=== PATIENT | male | born 1950 | race Caucasian/White ===

== ENCOUNTER → 2016-04-13 | Outpatient (CLI) | payer OTHER ==
[2016-04-13 08:44] LABS: Basophils # (A) 0.1 k/uL (0-0.2); Basophils % (A) 1 %; CH 31.1; CHCM 33.9; Eosinophils # (A) 0.3 k/uL (0-0.7); Eosinophils % (A) 5 %; HDW 2.57; HGB 15.6 gm/dL (13.0-17.5); Luc % (Auto) 3; Lymphocytes # (A) 1.2 k/uL (1.0-4.8); Lymphocytes % (A) 21 %; MCH 29.9 pg (25.0-35.0); MCHC 32.4 g/dL (31.0-37.0); MCV 92.3 fL (80.0-100.0); Mean Platelet Volume 6.8; Monocytes # (A) 0.4 k/uL (0-1.0); Monocytes % (A) 7 %; Neutrophils # (A) 3.6 k/uL (1.3-7.7); Neutrophils % (A) 63 %; RDW 13.1 % (11.5-15.5); WBC 5.8 k/uL (3.8-10.6)
[2016-04-13 08:45] LABS: Appearance,Urine Clear (Clear); Bilirubin,Urine Negative (Negative); Glucose,Urine (UA) Negative (Negative); Ketones,Urine Negative (Negative); Leukocyte Esterase,Urine Negative (Negative); Nitrite,Urine Negative (Negative); PH, Urine 5.5 (5.0-8.0); Protein,Urine Negative (Negative); Specific Gravity,Urine 1.009 (1.001-1.035); UA Billing (MACRO vs. MICRO) CHEM; Urobilinogen,Urine <2.0 mg/dL (<2.0)
[2016-04-13 10:45] LABS: ALT 54 U/L (21-72); AST 37 U/L (17-59); Blood Urea Nitrogen 19 mg/dL (9-20); Cholesterol 168 mg/dL (<200); Glucose 101 mg/dL (74-99); HDL Cholesterol 45 mg/dL (40-60); Non-African American GFR(MDRD) >60 (>60 ml/min/1.73 sqM); Potassium 4.7 mmol/L (3.5-5.1); Sodium 144 mmol/L (137-145); Triglycerides 109 mg/dL (<150)
[2016-04-13 11:32] LABS: Hemoglobin A1C 5.4 % (4.2-6.1)
== END | disposition home or self-care (01) ==
LOC: LABWHC1 08:13
PROVIDERS: ATTEND Internal Medicine
DX: M48.06 Spinal stenosis, lumbar region (principal); G62.9 Polyneuropathy, unspecified; I10 Essential (primary) hypertension; R60.9 Edema, unspecified
CPT/HCPCS: 36415; 80061; 81003; 82565; 82947; 83036; 84132; 84295; 84403; 84443; 84450; 84460; 84520; 85025

== ENCOUNTER 2016-06-26 17:50 | Emergency (ER) | payer OTHER, MEDICARE ==
[2016-06-26] MEDS ORDERED: SODIUM CHLORIDE 0.9% 1,000 ML IV STA (18:29)
[2016-06-26] MEDS ORDERED: chlordiazePOXIDE 25 MG CAP PO STA (18:29)
[2016-06-26] MEDS ORDERED: ONDANSETRON 4 MG ODT STARTER PACK 2 TAB BTL PO STA (18:30)
--- NOTE | 2016-06-26 18:33 | ED ---
Alcohol HPI - General Chief Complaint: Alcohol Stated Complaint: ALCOHOL WITHDRAWALS Time Seen by Provider: 06/26/16 18:02 Source: patient, RN notes reviewed Mode of arrival: ambulatory Limitations: no limitations - History of Present Illness Initial Comments: Patient is a 66-year-old male chief complaint of alcohol withdrawal, patient reports that he drinks a liter and half of wine every day. Patient reports he has been 2 to rehab facilities this past year but now he has relapsed. He states that over the past few weeks he has increased his alcohol intake. Patient states that he has nausea. He reports that he is unable to eat. Patient reports that he has no tremors. He denies any other issues. Patient reports that he drove himself here. Patient's PAT was 0.138. Patient states that he is having no plans to go to a rehab facility after this. Patient reports he try to detox himself. Patient denies any other physical symptoms including chest pain, abdominal pain or other symptoms. - Related Data Home Medications Medication Instructions Recorded Confirmed Losartan Potassium 100 mg PO DAILY 09/25/14 06/26/16 Ascorbic Acid [Vitamin C] 500 mg PO DAILY 06/26/16 06/26/16 Furosemide [Lasix] 20 mg PO DAILY 06/26/16 06/26/16 Gabapentin [Neurontin] 300 mg PO TID 06/26/16 06/26/16 Multivit-Min/FA/Lycopen/Lutein 1 tab PO DAILY 06/26/16 06/26/16 [Centrum Silver Men Tablet] NIFEdipine [NIFEdipine ER] 30 mg PO DAILY 06/26/16 06/26/16 Previous Rx's Medication Instructions Recorded LORazepam [Ativan] 1 mg PO TID #9 tab 06/26/16 Ondansetron Odt [Zofran Odt] 4 mg PO Q8HR PRN #12 tab 06/26/16 Allergies Allergy/AdvReac Type Severity Reaction Status Date / Time acetaminophen [From Vicodin] Allergy Rash/Hives Verified 06/26/16 18:09 clindamycin Allergy Rash/Hives Verified 06/26/16 18:09 hydrocodone bitartrate Allergy Rash/Hives Verified 06/26/16 18:09 [From Vicodin] Penicillins Allergy Rash/Hives Verified 06/26/16 18:09 Sulfa (Sulfonamide Allergy Rash/Hives Verified 06/26/16 18:09 Antibiotics) Review of Systems ROS Statement: Those systems with pertinent positive or pertinent negative responses have been documented in the HPI. ROS Other: All systems not noted in ROS Statement are negative. Past Medical History Past Medical History: Hypertension Additional Past Medical History / Comment(s): HYPOGLYCEMIA History of Any Multi-Drug Resistant Organisms: None Reported Past Surgical History: Orthopedic Surgery Additional Past Surgical History / Comment(s): RIGHT TORN ACL, HYDROCELE Past Psychological History: Depression Smoking Status: Never smoker Past Alcohol Use History: Abuse, Daily, Heavy Past Drug Use History: None Reported General Exam - General Exam Comments Initial Comments: is a 66-year-old male. No distress. Limitations: no limitations General appearance: alert, in no apparent distress Head exam: Present: atraumatic, normocephalic, normal inspection Eye exam: Present: normal appearance, PERRL, EOMI. Absent: scleral icterus, conjunctival injection, periorbital swelling ENT exam: Present: normal exam, mucous membranes moist Neck exam: Present: normal inspection. Absent: tenderness, meningismus, lymphadenopathy Respiratory exam: Present: normal lung sounds bilaterally. Absent: respiratory distress, wheezes, rales, rhonchi, stridor Cardiovascular Exam: Present: regular rate, normal rhythm, normal heart sounds. Absent: systolic murmur, diastolic murmur, rubs, gallop, clicks GI/Abdominal exam: Present: soft, normal bowel sounds. Absent: distended, tenderness, guarding, rebound, rigid Extremities exam: Present: normal inspection, full ROM, normal capillary refill. Absent: tenderness, pedal edema, joint swelling, calf tenderness Back exam: Present: normal inspection Neurological exam: Present: alert, oriented X3, CN II-XII intact Psychiatric exam: Present: normal affect, normal mood Skin exam: Present: warm, dry, intact, normal color. Absent: rash Course Vital Signs 06/26/16 17:53 Temperature 98.3 F Pulse Rate 89 Respiratory 20 Rate Blood Pressure 127/58 O2 Sat by Pulse 98 Oximetry Medical Decision Making - Medical Decision Making Patient 66-year-old male with chief complaint of concerns of going through alcohol withdrawals. Patient was given IV fluids, Zofran and Librium. Patient discharged at this time prescription for Ativan and Zofran. Discussed he needs to take this sobriety seriously. Patient plans to start impression he is considering going to treatment center. Patient agrees treatment plan will comply. Return parameters were discussed. Disposition Clinical Impression: Alcohol dependence with withdrawal, uncomplicated Disposition: HOME SELF-CARE Condition: Good Instructions: Alcohol Withdrawal (ED) Additional Instructions: Patient advised to abstain from alcohol use. Patient is to follow-up with primary care provider. Recommended following up with a drug rehab facility. Return emergency department if any alarming signs or symptoms occur. Prescriptions: LORazepam [Ativan] 1 mg PO TID #9 tab Ondansetron Odt [Zofran Odt] 4 mg PO Q8HR PRN #12 tab PRN Reason: Nausea Referrals: Benjie Harris MD [Primary Care Provider] - 1-2 days Time of Disposition: 19:46
[2016-06-26 20:27] VITALS: RESP 18
[2016-06-26 21:25] VITALS: BP 147/80; PULSE 87; TEMP 97.8
== END 2016-06-26 21:26 | disposition home or self-care (01) ==
LOC: EC 17:50
DX: F10.239 Alcohol dependence with withdrawal, unspecified (principal); Y90.6 Blood alcohol level of 120-199 mg/100 ml; I10 Essential (primary) hypertension; Z79.899 Other long term (current) drug therapy; Z88.6 Allergy status to analgesic agent; Z88.1 Allergy status to other antibiotic agents; Z88.5 Allergy status to narcotic agent; Z88.0 Allergy status to penicillin; Z88.2 Allergy status to sulfonamides
CPT/HCPCS: 82075; 96360; 96361; 99284; S0119

== ENCOUNTER → 2016-07-01 | Outpatient (CLI) | payer MEDICARE, OTHER ==
--- NOTE | 2016-07-01 10:45 | MR ---
EXAMINATION TYPE: MR knee RT wo con DATE OF EXAM: 07/01/2016 9:09 AM COMPARISON: NONE HISTORY: 66-year-old male with right knee pain TECHNIQUE: Multiplanar, multisequence imaging of the right knee is performed without IV contrast. FINDINGS: There appears to have been prior ACL reconstruction. However, the ACL graft is not visualized and blayne ears ruptured. There is some intrinsic signal within the PCL suggesting mild sprain or partial tear. MCL and LCL complex appear intact. There is severe full-thickness loss of cartilage along the mid weightbearing and peripheral medial co mpartment with marginal spurring and reactive subchondral marrow signal changes. The medial meniscus is diffusely degenerative, torn, and extruded. There is additional moderate to severe joint space narrowing within the lateral compartment with mode rate to severe irregular cartilage thinning along the mid aspect of the lateral compartment with chiquita inal spurring and reactive subchondral marrow signal changes. The lateral meniscus is also diffusely degenerative and torn. Moderate degenerative thinning of patellar articular cartilage with marginal spurring. There are more areas of severe cartilage loss along the lateral trochlear facet. Extensor mechanism is intact. There is a large knee joint effusion with moderate synovial thickening. There is also a moderate to large 6.8 cm complex Hay cyst which is leaking or ruptured. Mild diffuse muscular edema involving the lateral gastrocnemius and popliteus. There is normal popliteal artery anatomy with moderate diffuse muscular atrophy. No suspicious bone m arrow replacement. No discrete marginal erosions. Extensive patchy subchondral and pericapsular bone marrow edema is noted. IMPRESSION: 1. Prior ACL reconstruction with graft rupture. Also, either mild strain or partial tear of the PCL. 2. End stage medial compartment degenerative change with a diffusely degenerated, torn, and extruded medial meniscus. 3. Moderate to severe lateral compartment degenerative change also with diffuse tear of the lateral m eniscus. 4. Moderate overall patellofemoral compartmental osteoarthrosis. 5. Given extensive patchy subchondral and pericapsular bone marrow edema, correlate to exclude an inf lammatory arthropathy superimposed on osteoarthritis. 6. Large knee joint effusion with moderate chronic synovitis as well as a moderate to large complex l eaking/ruptured Hay's cyst. Consider the utility of arthrocentesis and fluid analysis. 7. Muscular edema involving the lateral gastrocnemius and popliteus could represent muscle strains or could be reactive to altered biomechanics.
--- NOTE | 2016-07-01 11:26 | MR ---
EXAMINATION TYPE: MR lumbar spine wo con DATE OF EXAM: 07/01/2016 9:19 AM COMPARISON: NONE HISTORY: lumbar stenosis TECHNIQUE: Multiplanar, multisequence images of the lumbar spine were acquired. L1-L2: Circumferential posterior disc bulge causes mild anterior mass effect on the thecal sac. There is mild foraminal encroachment on the left likely contributed by scoliosis. Mild facet arthropathy. L2-L3: Posterior broad-based disc bulge causes mild anterior mass effect on the thecal sac. Central d isc bulge causes only minimal foraminal encroachment greater on the right than on the left. L3-L4: Circumferential extension of broad-based posterior disc bulge causes anterior mass effect on t he thecal sac. Some encroachment on the lateral recess due to facet arthropathy and hypertrophy of li gamentum flavum. Right-sided foraminal encroachment is present greater than left. There is mild to mo derate central stenosis. L4-L5: Facet arthropathy with hypertrophy of the ligamentum flavum encroaches on the lateral recesses . Differential extension of endplate disc complex results in bilateral foraminal encroachment. Mild a nterior mass effect on the thecal sac due to posterior extension of endplate disc complex, broad-base d posterior disc bulge. No significant central stenosis. L5-S1: There is facet arthropathy. No significant central canal stenosis. Circumferential extension o f endplate disc complex encroaches somewhat on the left neural foramen. Lumbar segments are intact. No paraspinal masses are identified. Conus medullaris has a normal appe arance. Minimal retrolisthesis grade 1 L2-3, L3-4. Multilevel endplate discogenic marrow signal michael e, there is associated loss of disc height and signal at the intervertebral levels, multilevel vacuum disc phenomenon. There is a spinal curvature. IMPRESSION: Degenerative disc disease, facet arthropathy, multilevel foraminal encroachment, mild to moderate jono tral stenosis greatest at L3-4, correlate with plain film prior to any intervention.
== END | disposition home or self-care (01) ==
LOC: RADMRIMAIN 08:17
PROVIDERS: ATTEND Physical Medicine & Rehabilitation
DX: M17.11 Unilateral primary osteoarthritis, right knee (principal); M48.06 Spinal stenosis, lumbar region; M51.36 Other intervertebral disc degeneration, lumbar region; M46.96 Unspecified inflammatory spondylopathy, lumbar region
CPT/HCPCS: 72148

== ENCOUNTER 2016-08-02 20:20 | Inpatient (IN) | payer MEDICARE, OTHER ==
[~2016-08-02 20:20] MED LIST: THIAMINE 100 MG TAB PO SCH
[2016-08-02] MEDS ORDERED: SODIUM CHLORIDE 0.9% 1,000 ML with MVI, ADULT NO.4 WITH VIT K 10 ML, THIAMINE 100 MG, F... IV ONE ×8 (20:44→21:30)
[2016-08-02] MEDS ORDERED: THIAMINE 100 MG/ML 2 ML VIAL IM STA (20:45)
[2016-08-02] MEDS ORDERED: LORazepam 2 MG/ML SYRINGE IV PRN ×2 (20:45)
--- NOTE | 2016-08-02 20:51 | ED ---
General Adult HPI - General Chief complaint: Alcohol Stated complaint: Withdrawal Time Seen by Provider: 08/02/16 20:40 Source: patient, RN notes reviewed, old records reviewed Mode of arrival: wheelchair Limitations: no limitations - History of Present Illness Initial comments: Chief complaint and history of present illness a 66-year-old male here with a complaint of started have withdrawal. The patient reports he drinks 1/2 L of wine daily. He drank just enough today so he will not feel bad. The patient was in emergency room problems approximately one month ago. He's been through rehabilitation for alcohol problems twice in the past. She denies depression or suicidal thoughts. - Related Data Home Medications Medication Instructions Recorded Confirmed Losartan Potassium 100 mg PO DAILY 09/25/14 08/02/16 Furosemide [Lasix] 20 mg PO DAILY 06/26/16 08/02/16 Gabapentin [Neurontin] 300 mg PO TID 06/26/16 08/02/16 Multivit-Min/FA/Lycopen/Lutein 1 tab PO DAILY 06/26/16 08/02/16 [Centrum Silver Men Tablet] Aspirin 1,300 mg PO DAILY 08/02/16 08/02/16 Ibuprofen [Motrin] 800 mg PO DAILY PRN 08/02/16 08/02/16 Triamcinolone Acetonide [Nasacort] 2 spray EA NOSTRIL DAILY 08/02/16 08/02/16 Allergies Allergy/AdvReac Type Severity Reaction Status Date / Time acetaminophen [From Vicodin] Allergy Rash/Hives Verified 08/02/16 21:08 clindamycin Allergy Rash/Hives Verified 08/02/16 21:08 hydrocodone bitartrate Allergy Rash/Hives Verified 08/02/16 21:08 [From Vicodin] Penicillins Allergy Rash/Hives Verified 08/02/16 21:08 Sulfa (Sulfonamide Allergy Rash/Hives Verified 08/02/16 21:08 Antibiotics) Review of Systems ROS Statement: Those systems with pertinent positive or pertinent negative responses have been documented in the HPI. Review of systems denies any headache or visual acuity changes. No chest pain or shortness of breath. No GI/ problems this time and no neuro complaints or deficits. He reports he was slowing is drinking now started to have withdrawal symptoms and wants to get off alcohol. All systems reviewed. Past medical problems significant for hypertension and hypoglycemia and chronic alcoholism. The patient's surgeries include torn right ACL. No other surgeries. Family history no 1 with addictions. Mother had breast cancer father had a stroke. Patient has ALLERGIES to acetaminophen, clindamycin, hydrocodone, penicillins and sulfa. Patient does not smoke. He is not alcoholic. Patient states she's gainfully employed but misses a lot of work. ROS Other: All systems not noted in ROS Statement are negative. Past Medical History Past Medical History: Hypertension Additional Past Medical History / Comment(s): HYPOGLYCEMIA History of Any Multi-Drug Resistant Organisms: None Reported Past Surgical History: Orthopedic Surgery Additional Past Surgical History / Comment(s): RIGHT TORN ACL, HYDROCELE Past Psychological History: Depression Smoking Status: Never smoker Past Alcohol Use History: Abuse, Daily, Heavy Past Drug Use History: None Reported General Exam - General Exam Comments Initial Comments: General: The patient is awake and alert, states he started having alcohol withdrawal problems. Vital signs this time temperature 98.3 pulse 96 respiratory rate 16 pulse ox 95% room air blood pressure 144/69 Eye: Pupils are equal, round and reactive to light, extra-ocular movements are intact ; there is normal conjunctiva bilaterally. No signs of icterus. Ears, nose, mouth and throat: There are moist mucous membranes and no oral lesions. Neck: The neck is supple, there is no tenderness . Patient denies any slips or falls no injuries. No headache no head injuries. Cardiovascular: There is a regular rate and rhythm. No murmur, rub or gallop is appreciated. Respiratory: Lungs are clear to auscultation, respirations are non-labored, breath sounds are equal. No wheezes, stridor, rales, or rhonchi. Gastrointestinal: Soft, non-distended, non-tender abdomen without masses or organomegaly noted. There is no rebound or guarding present. No CVA tenderness. Bowel sounds are unremarkable. Back: There is no tenderness to palpation in the midline. There is no obvious deformity. No rashes noted. Musculoskeletal: Normal ROM, no tenderness, There is no pedal edema. There is no calf tenderness or swelling. Sensation intact. Small bruise on his left knee. But demonstrates full range of motion. Neurological: CN II-XII intact, There are no obvious motor or sensory deficits. Coordination appears grossly intact. Speech is normal. No focal or lateralizing findings. Skin: Skin is warm and dry and no rashes or lesions are noted. Psychiatric: Denies being depressed or suicidal. History of alcoholism. Limitations: no limitations Course Vital Signs 08/02/16 20:22 Temperature 98.3 F Pulse Rate 96 Respiratory 16 Rate Blood Pressure 144/69 O2 Sat by Pulse 95 Oximetry Medical Decision Making - Medical Decision Making Medical decision making the patient's white count 5.5 hemoglobin 15 and 46 platelets 243. INR 1.0 BUN 24 creatinine 1.0 with a GFR greater than 60. Glucose 98. Amylase, lipase normal limits. AST ALT elevated. [facility] for [facility] Withdrawal. Continuing with a Banana Bag and Thiamine. He Is Neurologically Intact. - Lab Data Result diagrams: 08/02/16 21:00 08/02/16 21:00 Lab Results 08/02/16 08/02/16 08/02/16 Range/Units 21:00 21:00 21:00 WBC 5.5 (3.8-10.6) k/uL RBC 5.00 (4.30-5.90) m/uL Hgb 15.9 (13.0-17.5) gm/dL Hct 46.9 (39.0-53.0) % MCV 93.8 (80.0-100.0) fL MCH 31.7 (25.0-35.0) pg MCHC 33.8 (31.0-37.0) g/dL RDW 14.0 (11.5-15.5) % Plt Count 243 (150-450) k/uL Neutrophils % 64 % Lymphocytes % 25 % Monocytes % 7 % Eosinophils % 1 % Basophils % 1 % Neutrophils # 3.5 (1.3-7.7) k/uL Lymphocytes # 1.4 (1.0-4.8) k/uL Monocytes # 0.4 (0-1.0) k/uL Eosinophils # 0.0 (0-0.7) k/uL Basophils # 0.0 (0-0.2) k/uL PT 10.3 (9.0-12.0) sec INR 1.0 (<1.1) Sodium 140 (137-145) mmol/L Potassium 4.1 (3.5-5.1) mmol/L Chloride 97 L (98-107) mmol/L Carbon Dioxide 20 L (22-30) mmol/L Anion Gap 23 mmol/L BUN 24 H (9-20) mg/dL Creatinine 1.00 (0.66-1.25) mg/dL Est GFR (MDRD) Af Amer >60 (>60 ml/min/1.73 sqM) Est GFR (MDRD) Non-Af >60 (>60 ml/min/1.73 sqM) Glucose 98 (74-99) mg/dL Calcium 8.9 (8.4-10.2) mg/dL Magnesium 2.4 H (1.6-2.3) mg/dL Total Bilirubin 0.6 (0.2-1.3) mg/dL AST 91 H (17-59) U/L ALT 78 H (21-72) U/L Alkaline Phosphatase 88 (38-126) U/L Total Protein 6.8 (6.3-8.2) g/dL Albumin 4.5 (3.5-5.0) g/dL Amylase 40 (30-110) U/L Lipase 192 (23-300) U/L Disposition Clinical Impression: Alcohol withdrawal Disposition: ADMITTED IP TO THIS HOSP Condition: Fair Referrals: Benjie Harris MD [Primary Care Provider] - 1-2 days
[2016-08-02 21:16] LABS: Basophils % (A) 1 %; CH 32.1; CHCM 34.4; Eosinophils % (A) 1 %; HCT 46.9 % (39.0-53.0); HDW 2.27; HGB 15.9 gm/dL (13.0-17.5); Luc # (Auto) 0.17; Luc % (Auto) 3; Lymphocytes # (A) 1.4 k/uL (1.0-4.8); Lymphocytes % (A) 25 %; MCH 31.7 pg (25.0-35.0); MCHC 33.8 g/dL (31.0-37.0); MCV 93.8 fL (80.0-100.0); Mean Platelet Volume 7.2; Monocytes # (A) 0.4 k/uL (0-1.0); Monocytes % (A) 7 %; Neutrophils # (A) 3.5 k/uL (1.3-7.7); Neutrophils % (A) 64 %; WBC 5.5 k/uL (3.8-10.6); WBC (Perox) 5.56
[2016-08-02 21:27] LABS: ALT 78 U/L (21-72); AST 91 U/L (17-59); Alkaline Phosphatase 88 U/L (38-126); Amylase 40 U/L (30-110); Anion Gap 23 mmol/L; Blood Urea Nitrogen 24 mg/dL (9-20); Calcium 8.9 mg/dL (8.4-10.2); Carbon Dioxide 20 mmol/L (22-30); Chloride 97 mmol/L (98-107); Glucose 98 mg/dL (74-99); Magnesium 2.4 mg/dL (1.6-2.3); Non-African American GFR(MDRD) >60 (>60 ml/min/1.73 sqM); Potassium 4.1 mmol/L (3.5-5.1); Sodium 140 mmol/L (137-145); Total Bilirubin 0.6 mg/dL (0.2-1.3); Total Protein 6.8 g/dL (6.3-8.2)
[2016-08-02] MEDS ORDERED: LORazepam 2 MG/ML SYRINGE IV STA (21:31)
[2016-08-02 21:32] LABS: Prothrombin Time 10.3 sec (9.0-12.0)
[2016-08-02] MEDS ORDERED: NALOXONE 0.4 MG/ML 1 ML VIAL IV PRN (22:39)
[2016-08-02] MEDS ORDERED: IBUPROFEN 200 MG TAB PO PRN (22:41)
[2016-08-03] MEDS: LORazepam 2 MG/ML SYRINGE IV PRN ×3 (03:21→10:51)
[2016-08-03 07:47] LABS: ALT 86 U/L (21-72); AST 97 U/L (17-59); Alkaline Phosphatase 83 U/L (38-126); Anion Gap 15 mmol/L; Blood Urea Nitrogen 17 mg/dL (9-20); Calcium 8.3 mg/dL (8.4-10.2); Carbon Dioxide 24 mmol/L (22-30); Chloride 98 mmol/L (98-107); Glucose 60 mg/dL (74-99); Non-African American GFR(MDRD) >60 (>60 ml/min/1.73 sqM); Potassium 3.8 mmol/L (3.5-5.1); Sodium 137 mmol/L (137-145); Total Bilirubin 1.1 mg/dL (0.2-1.3); Total Protein 6.6 g/dL (6.3-8.2)
[2016-08-03] MEDS ORDERED: GABAPENTIN 300 MG CAP PO SCH (09:00)
[2016-08-03] MEDS ORDERED: FUROSEMIDE 20 MG TAB PO SCH (09:00)
[2016-08-03] MEDS ORDERED: FLUTICASONE 50MCG/SPRAY NASAL 16GM EA NOSTRIL SCH (09:00)
[2016-08-03] MEDS ORDERED: ASPIRIN 325 MG TAB PO SCH (09:00)
[2016-08-03] MEDS ORDERED: LOSARTAN 50 MG TAB PO SCH (09:00)
[2016-08-03] MEDS ORDERED: PANTOPRAZOLE 40 MG/10 ML VIAL IV SCH (09:00)
[2016-08-03 11:23] VITALS: BMI 33.0
[2016-08-03 12:57] VITALS: BP 143/83; PULSE 97; RESP 16; TEMP 97.9
--- NOTE | 2016-08-04 05:41 | HP ---
DATE OF ADMISSION: HISTORY AND PHYSICAL AND DISCHARGE SUMMARY Reason for admission is palpitations and anxiety. HISTORY OF PRESENTING ILLNESS: This is a 66-year-old gentleman who has had history of alcohol withdrawals in the past comes in the hospital with complaints of palpitations, nausea and generalized anxiety. The patient states that he has been drinking about 0.5 L of wine and sometimes a pint of vodka in addition to it. He states that he has attempted to quit drinking; however, has symptoms of anxiety. Hence, restarts drinking immediately. The patient's past medical history includes hypertension, peripheral neuropathy. States that he does not have any history of heart disease. EKG in the emergency room did not reveal ST-T wave changes. At the time of my evaluation, patient appears to be appropriate. He is able to ambulate without difficulty. Denies having any anxiety. No nausea, vomiting. No auditory or visual hallucinations are reported. A 14-point review of systems was done; none pertinent other than those mentioned above. Medications at home include: 1. Losartan. 2. Lasix. 3. Neurontin. 4. Centrum Silver. 5. Aspirin. 6. Motrin. 7. Nasacort. Medications were reviewed appropriately on admission and on discharge. Allergies include VICODIN, CLINDAMYCIN, PENICILLINS and SULFA. Past medical history includes hypertension, depression, alcohol use none. Past surgical history includes repair of his knee, hydrocele surgery. SOCIAL HISTORY: Drinks daily. No significant tobacco use is reported. No drug use is reported. PHYSICAL EXAM: Vitals were reviewed within normal limits. GENERALLY: Patient appears to be alert, oriented x3. HEENT: The pupils are equal and reactive to light and accommodation. HEART: S1, S2 present. No murmur appreciated. LUNGS: Good air entry. No wheezing or rhonchi noted. ABDOMINAL EXAM: Soft, nontender, no organomegaly appreciated. GENITOURINARY: No Jarrett in place. EXTREMITIES: Pulses can be palpated distally. Denies any tenderness on gross palpation. SKIN: On a gross skin exam does not appear to have any purpura or any skin rashes that were noted. NEUROLOGICALLY: Grossly cranial nerves 2-12 intact. No motor or sensory deficits noted. LABORATORY DATA: On initial admission was hemoglobin 15.9, hematocrit 46.9, white count 5.5, platelets of 243. Sodium 140, potassium 4.1, chloride 97, bicarb 20. BUN 24, creatinine of 1. ASSESSMENT AND PLAN: 1. Acute alcohol withdrawal, however, improved rapidly. 2. Non-anion gap metabolic acidosis, which is mild. 3. History of hypertension. 4. Peripheral neuropathy. PLAN: I did discuss with the patient that he appears stable. The only change in discharge medications were patient will be given Serax. I did discuss titration over the next 3 to 4 days. Patient will be given community resources including social work on an outpatient basis and AA as well. Patient will also be given a prescription for thiamine for 7 days. Discuss complete alcohol cessation. Patient states that he is anxious regarding a knee surgery and hence restarted drinking again. Patient was made to ambulate, was stable and discharged home in a stable condition.
== END 2016-08-03 15:58 | disposition home or self-care (01) | DRG 897 ==
LOC: EC 20:20 → 6SEL 22:39
PROVIDERS: ADMIT Internal Medicine; ATTEND Internal Medicine
DX: F10.239 Alcohol dependence with withdrawal, unspecified (principal); E87.2 Acidosis; F32.9 Major depressive disorder, single episode, unspecified; I10 Essential (primary) hypertension; G62.9 Polyneuropathy, unspecified; F41.1 Generalized anxiety disorder; Z88.0 Allergy status to penicillin; Z88.1 Allergy status to other antibiotic agents; Z88.5 Allergy status to narcotic agent; Z88.2 Allergy status to sulfonamides; Z79.82 Long term (current) use of aspirin; Z79.899 Other long term (current) drug therapy
CPT/HCPCS: 36415; 80053; 82150; 83690; 83735; 85025; 85610; 96365; 96366; 96375; 99285

== ENCOUNTER 2016-08-20 07:36 | Day surgery (SDC) | payer MEDICARE, OTHER ==
[2016-08-18 16:23] VITALS: BMI 35.2
--- NOTE | 2016-08-19 20:21 | HP ---
DATE OF ADMISSION: Matias Cha is a 66-year-old patient seen with progressive right knee pain. After having treatment options discussed, he elected to proceed with right knee arthroscopy. Consent regarding the procedure was obtained. Medical clearance was provided by Dr. Harris. Past medical history is hypertension, hyperlipidemia. PAST SURGICAL HISTORY: Right knee arthroscopy. Daily medications: 1. Gabapentin. 2. Ibuprofen. 3. Losartan. ALLERGIES: SULFA, VICODIN AND PENICILLIN. SOCIAL HISTORY: Patient denies current tobacco use. Physical evaluation of the right knee: His range of motion is 0 to 110 degrees, moderate effusion. Tenderness medial joint line. Tenderness, lateral joint line. Positive medial Anette's. Positive lateral Anette's. Ligaments stable. Hip rotation without pain. Distal neurovascular exam intact. Radiographs of the right knee revealed moderate medial, moderate to severe lateral, moderate patellofemoral compartment osteoarthritis. IMPRESSION: 1. Internal derangement of right knee with medial meniscal tear and ACL graft tear. 2. Right knee osteoarthritis. PLAN: Right knee arthroscopy with partial meniscectomy and debridement.
[~2016-08-20 07:36] MED LIST changes: +DEXAMETHASONE SOD PHOSPHATE 10 MG/ML 1 ML VIAL IV ONE; +HYDROmorphone 1 MG/ML 1 ML SYRINGE IVP PRN; +LACTATED RINGERS 1,000 ML IV SCH; +ONDANSETRON 4 MG/2 ML VIAL IVP ONE; -THIAMINE 100 MG TAB PO SCH; +ceFAZolin 2 GM in SODIUM CHLORIDE 0.9% 100 ML IVPB ONE
[2016-08-20] MEDS ORDERED: LIDOCAINE 1% 20 ML VIAL (10MG/ML) FOR IV START INTRADERMA ONE (08:03)
[2016-08-20 08:04] LABS: Glucose,Whole Blood 97 mg/dL (75-99)
[2016-08-20] MEDS ORDERED: SUCCINYLCHOLINE CHLORIDE 100 MG/5 ML SYR IV ONE (08:42)
[2016-08-20] MEDS ORDERED: fentaNYL (PF) 50 MCG/ML 2 ML AMP ONE (08:42)
[2016-08-20] MEDS ORDERED: PROPOFOL 10 MG/ML 20 ML VIAL IV ONE (08:42)
[2016-08-20] MEDS ORDERED: LIDOCAINE 1% INJ 10MG/ML (20 ML MDV) ONE (08:42)
[2016-08-20] MEDS ORDERED: KETOROLAC 30 MG/ML 1 ML VIAL ONE (08:42)
[2016-08-20] MEDS ORDERED: BUPIVACAIN-EPI 0.25%-1:200,000 30 ML VIAL INTRAARTIC ONE (08:42)
[2016-08-20] MEDS ORDERED: MIDAZOLAM 2 MG/2 ML VIAL ONE (08:42)
--- NOTE | 2016-08-20 09:40 | P.OP ---
Date of Procedure: 08/20/16 Preoperative Diagnosis: Internal derangement right knee Postoperative Diagnosis: 1. Tear medial and lateral meniscus right knee 2. Grade 4 chondromalacia medial femoral condyle right knee 3. Grade 3 chondromalacia lateral femoral condyle right knee 4. 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 ACL graft tear right knee 6. Reactive synovitis medial and suprapatellar compartments right knee Procedure(s) Performed: 1. Arthroscopic partial medial and lateral meniscectomy right knee 2. Arthroscopic chondroplasty medial femoral condyle right knee 3. Arthroscopic chondroplasty lateral femoral condyle right knee 4. Arthroscopic debridement ACL tear right knee 5. Arthroscopic partial synovectomy medial and suprapatellar compartments right knee Implants: None Anesthesia: ALE, local Surgeon: Calixto Hardwick Estimated Blood Loss (ml): 10 Pathology: none sent Condition: stable Disposition: PACU Indications for Procedure: 66-year-old patient seen with progressive right knee pain. After having treatment options discussed, he elected to proceed with right knee arthroscopy. Operative Findings: See description of procedure Description of Procedure: Patient was taken to the operative suite. Patient underwent a general anesthetic by the department of anesthesia. Patient was given preoperative antibiotics. The right lower extremity was placed in a well-padded arthroscopic leg miguel. The right leg was prepped and draped in the normal sterile orthopedic fashion. A lateral parapatellar and suprapatellar incision was made. Trochars were inserted. Arthroscopy was initiated. Suprapatellar pouch revealed thick reactive synovitis. The patellofemoral joint appeared to articulate congruently. There was grade 4 chondromalacia of the patellofemoral joint with no osteochondral tears present. The scope was guided into the medial gutter. No loose bodies or plica were identified. The scope was then guided into the medial compartment. A medial parapatellar incision was made. Trocar inserted followed by probe. There was a radial tear in the posterior medial meniscus. Grade 4 chondromalacia changes were noted of both the femoral condyle and tibial plateau with eburnation and [id number] contact at the medial posterior aspect. There was reactive synovitis anteriorly. There were some osteochondral tears involving the more lateral aspect of the femoral condyle. I performed a partial medial meniscectomy down to stable tissue. I performed a chondroplasty of the medial femoral condyle down to stable tissue and partial synovectomy. The residual meniscus was stable as was the residual osteochondral surface of that lateral aspect of the medial femoral condyle. Again we noted grade 4 [id number] contact more medially. Scope and probe were then guided into the intercondylar notch. There was ACL graft tear. Some remnants were noted in the notch. The PCL was partially torn but intact. I debrided out the ACL tear with a motorized shaver the residual PCL was stable.. The scope and probe were then guided into lateral compartment. There was a complex tear of the lateral meniscus involving the anterior horn and midbody and posterior horn. There were grade 3 chondral malacia changes of the femoral condyle with osteochondral tears and grade 2-3, malacia of the lateral tibial plateau. I performed a partial meniscectomy getting down to stable tissue and chondroplasty lateral femoral condyle down to stable tissue. The residual meniscus and osteochondral surface were stable. The scope was in guided back into the suprapatellar compartment. I introduced the motorized shaver into the suprapatellar compartment. I debrided some piecemeal fragments of meniscus I encountered. I performed a partial synovectomy. Shaver was removed. I took one more look on the entire knee, no residual debris. Instruments were now removed from the joint. The joint was infiltrated with .25% Marcaine. Steri- Strips were applied to the portal sites. Sterile dressings were applied. The patient was placed into a FARTUN hose. No tourniquet was utilized. The patient was awakened, transferred to a bed and taken to recovery stable satisfactory condition.
[2016-08-20 09:41] VITALS: TEMP 97
[2016-08-20] MEDS ORDERED: LACTATED RINGERS 1,000 ML IV ONE (10:35)
[2016-08-20 12:36] VITALS: BP 123/79; PULSE 73; RESP 18
== END 2016-08-20 15:02 | disposition home or self-care (01) ==
LOC: OR 07:36
PROVIDERS: ATTEND Orthopaedic Surgery
DX: S83.271A Complex tear of lateral meniscus, current injury, right knee, initial encounter (principal); S83.241A Other tear of medial meniscus, current injury, right knee, initial encounter; S83.511A Sprain of anterior cruciate ligament of right knee, initial encounter; M65.9 Synovitis and tenosynovitis, unspecified; I10 Essential (primary) hypertension; E78.5 Hyperlipidemia, unspecified; G47.33 Obstructive sleep apnea (adult) (pediatric); E16.2 Hypoglycemia, unspecified; M94.261 Chondromalacia, right knee; X58.XXXA Exposure to other specified factors, initial encounter; Z88.5 Allergy status to narcotic agent; Z88.0 Allergy status to penicillin; Z88.2 Allergy status to sulfonamides; Z79.899 Other long term (current) drug therapy; Z79.82 Long term (current) use of aspirin
CPT/HCPCS: 93005; 29880; J2250; J1100; J0690; J2405; J2001; J3010; J1885; J0330; J2704

== ENCOUNTER 2016-09-13 15:46 | Emergency (ER) | payer MEDICARE, OTHER ==
[2016-09-13] MEDS ORDERED: SODIUM CHLORIDE 0.9% 1,000 ML IV STA ×2 (16:01→18:08)
[2016-09-13] MEDS ORDERED: THIAMINE 100 MG/ML 2 ML VIAL IM STA (16:01)
[2016-09-13] MEDS ORDERED: ONDANSETRON 4 MG/2 ML VIAL IVP STA ×2 (16:36→17:34)
[2016-09-13 16:41] LABS: Basophils % (A) 0 %; CH 32.3; Eosinophils # (A) 0.1 k/uL (0-0.7); Eosinophils % (A) 1 %; HCT 43.3 % (39.0-53.0); HDW 2.39; HGB 15.2 gm/dL (13.0-17.5); Luc # (Auto) 0.12; Luc % (Auto) 1; Lymphocytes # (A) 1.5 k/uL (1.0-4.8); Lymphocytes % (A) 18 %; MCH 31.6 pg (25.0-35.0); MCHC 35.1 g/dL (31.0-37.0); Mean Platelet Volume 7.3; Monocytes # (A) 0.3 k/uL (0-1.0); Monocytes % (A) 4 %; Neutrophils # (A) 6.3 k/uL (1.3-7.7); Neutrophils % (A) 76 %; RBC 4.81 m/uL (4.30-5.90); RDW 13.3 % (11.5-15.5); WBC 8.4 k/uL (3.8-10.6); WBC (Perox) 8.02
[2016-09-13 16:46] LABS: Prothrombin Time 10.3 sec (9.0-12.0)
[2016-09-13 16:51] LABS: ALT 120 U/L (21-72); AST 124 U/L (17-59); Alkaline Phosphatase 98 U/L (38-126); Amylase 51 U/L (30-110); Anion Gap 22 mmol/L; Blood Urea Nitrogen 24 mg/dL (9-20); Calcium 8.8 mg/dL (8.4-10.2); Carbon Dioxide 21 mmol/L (22-30); Chloride 95 mmol/L (98-107); Glucose 87 mg/dL (74-99); Magnesium 2.2 mg/dL (1.6-2.3); Non-African American GFR(MDRD) >60 (>60 ml/min/1.73 sqM); Phosphorous 3.1 mg/dL (2.5-4.5); Potassium 3.7 mmol/L (3.5-5.1); Sodium 138 mmol/L (137-145); Total Bilirubin 0.8 mg/dL (0.2-1.3); Total Protein 6.9 g/dL (6.3-8.2)
[2016-09-13 16:56] LABS: Alcohol 194 mg/dL
[2016-09-13] MEDS ORDERED: cloNIDine HCL 0.2 MG TAB PO STA (16:57)
--- NOTE | 2016-09-13 17:00 | ED ---
Alcohol HPI - General Chief Complaint: Alcohol Stated Complaint: ETOH withdrawl Time Seen by Provider: 09/13/16 15:49 Source: patient, EMS, RN notes reviewed Mode of arrival: EMS Limitations: no limitations - History of Present Illness Initial Comments: 66-year-old male presents to the emergency department with a chief complaint of wanting alcohol withdrawal medications area patient states that he drinks daily about a liter and half of wine or alcohol. Patient states that he does keep a full-time job that he likely off alcohol. Patient states he's used Librium in the past and has helped him. Patient states that he did drink today. Patient denies any history of seizures withdrawing from alcohol. Patient states that he just is feeling kind of weak and sluggish lately. Patient ate lots to hurt himself or anyone else. Patient states she was concerned due to his symptoms he thought that he should be evaluated. Patient denies any recent fever, chills , shortness of breath, chest pain, back pain, abdominal pain, nausea vomiting, numbness or tingling, dysuria or hematuria, constipation or diarrhea, headaches or visual changes, or any other current symptoms. - Related Data Home Medications Medication Instructions Recorded Confirmed Losartan Potassium 100 mg PO DAILY 09/25/14 09/13/16 Furosemide [Lasix] 20 mg PO DAILY 06/26/16 09/13/16 Gabapentin [Neurontin] 300 mg PO QAM 06/26/16 09/13/16 Multivit-Min/FA/Lycopen/Lutein 1 tab PO DAILY 06/26/16 09/13/16 [Centrum Silver Men Tablet] Aspirin 1,300 mg PO DAILY 08/02/16 09/13/16 Ibuprofen [Motrin] 800 mg PO Q4HR PRN 08/02/16 09/13/16 Gabapentin [Neurontin] 600 mg PO HS 08/18/16 09/13/16 NIFEdipine [Procardia Xl] 30 mg PO HS 08/18/16 09/13/16 Previous Rx's Medication Instructions Recorded Thiamine [Vitamin B-1] 100 mg PO DAILY #7 tablet 08/03/16 traMADol HCl [Ultram] 50 mg PO Q6H PRN #30 tab 08/20/16 chlordiazePOXIDE HCl [Librium] 25 mg PO DIRECTED 6 Days 09/13/16 Allergies Allergy/AdvReac Type Severity Reaction Status Date / Time acetaminophen [From Vicodin] Allergy Rash/Hives Verified 09/13/16 15:48 clindamycin Allergy Rash/Hives Verified 09/13/16 15:48 hydrocodone bitartrate Allergy Rash/Hives Verified 09/13/16 15:48 [From Vicodin] Penicillins Allergy Rash/Hives Verified 09/13/16 15:48 Sulfa (Sulfonamide Allergy Rash/Hives Verified 09/13/16 15:48 Antibiotics) Review of Systems ROS Statement: Those systems with pertinent positive or pertinent negative responses have been documented in the HPI. ROS Other: All systems not noted in ROS Statement are negative. Past Medical History Past Medical History: Hypertension Additional Past Medical History / Comment(s): HYPOGLYCEMIA,LUMBAR STENOSIS, History of Any Multi-Drug Resistant Organisms: None Reported Past Surgical History: Orthopedic Surgery Additional Past Surgical History / Comment(s): RIGHT TORN ACL, HYDROCELE Past Anesthesia/Blood Transfusion Reactions: No Reported Reaction Past Psychological History: Depression Smoking Status: Never smoker Past Alcohol Use History: Abuse, Daily, Heavy Past Drug Use History: None Reported - Past Family History Father Family Medical History: CVA/TIA Mother Family Medical History: Cancer, Deep Vein Thrombosis (DVT) General Exam - General Exam Comments Initial Comments: General: The patient is awake and alert, in no distress, and does not appear acutely ill. Eye: Pupils are equal, round and reactive to light, extra-ocular movements are intact; there is normal conjunctiva bilaterally. No signs of icterus. Ears, nose, mouth and throat: There are moist mucous membranes and no oral lesions. Neck: The neck is supple, there is no tenderness. Cardiovascular: There is a regular rate and rhythm. No murmur, rub or gallop is appreciated. Respiratory: Lungs are clear to auscultation, respirations are non-labored, breath sounds are equal. No wheezes, stridor, rales, or rhonchi. Gastrointestinal: Soft, non-distended, non-tender abdomen without masses or organomegaly noted. There is no rebound or guarding present. No CVA tenderness. Bowel sounds are unremarkable. Back: There is no tenderness to palpation in the midline. There is no obvious deformity. No rashes noted. Musculoskeletal: Normal ROM, no tenderness, There is no pedal edema. There is no calf tenderness or swelling. Sensation intact. Pulses equal bilaterally 2+. Neurological: CN II-XII intact, There are no obvious motor or sensory deficits. Coordination appears grossly intact. Speech is normal. Skin: Skin is warm and dry and no rashes or lesions are noted. Psychiatric: Cooperative, appropriate mood & affect, normal judgment. Limitations: no limitations Course Vital Signs 09/13/16 09/13/16 09/13/16 15:48 16:50 17:52 Temperature 98.2 F Pulse Rate 90 83 76 Respiratory 16 18 18 Rate Blood Pressure 112/64 116/57 102/57 O2 Sat by Pulse 93 L 94 L 95 Oximetry 09/13/16 19:16 Temperature 98.7 F Pulse Rate 95 Respiratory 18 Rate Blood Pressure 93/52 O2 Sat by Pulse 96 Oximetry Medical Decision Making - Medical Decision Making 66-year-old male presents seeking alcohol withdrawal treatment. At this time patient's laboratories revealed does appear to be stable. This time we will start patient on Librium for home. Patient at this time this will be discharged. We are pending a ride for the patient if he does not find a ride he will be discharged in the right knee. Patient is in agreement with this plan all questions have been answered. - Lab Data Result diagrams: 09/13/16 16:32 09/13/16 16:32 Lab Results 09/13/16 09/13/16 09/13/16 Range/Units 16:32 16:32 16:32 WBC 8.4 (3.8-10.6) k/uL RBC 4.81 (4.30-5.90) m/uL Hgb 15.2 (13.0-17.5) gm/dL Hct 43.3 (39.0-53.0) % MCV 90.0 (80.0-100.0) fL MCH 31.6 (25.0-35.0) pg MCHC 35.1 (31.0-37.0) g/dL RDW 13.3 (11.5-15.5) % Plt Count 239 (150-450) k/uL Neutrophils % 76 % Lymphocytes % 18 % Monocytes % 4 % Eosinophils % 1 % Basophils % 0 % Neutrophils # 6.3 (1.3-7.7) k/uL Lymphocytes # 1.5 (1.0-4.8) k/uL Monocytes # 0.3 (0-1.0) k/uL Eosinophils # 0.1 (0-0.7) k/uL Basophils # 0.0 (0-0.2) k/uL PT 10.3 (9.0-12.0) sec INR 1.0 (<1.1) Sodium 138 (137-145) mmol/L Potassium 3.7 (3.5-5.1) mmol/L Chloride 95 L (98-107) mmol/L Carbon Dioxide 21 L (22-30) mmol/L Anion Gap 22 mmol/L BUN 24 H (9-20) mg/dL Creatinine 0.77 (0.66-1.25) mg/dL Est GFR (MDRD) Af Amer >60 (>60 ml/min/1.73 sqM) Est GFR (MDRD) Non-Af >60 (>60 ml/min/1.73 sqM) Glucose 87 (74-99) mg/dL Calcium 8.8 (8.4-10.2) mg/dL Phosphorus 3.1 (2.5-4.5) mg/dL Magnesium 2.2 (1.6-2.3) mg/dL Total Bilirubin 0.8 (0.2-1.3) mg/dL AST 124 H (17-59) U/L ALT 120 H (21-72) U/L Alkaline Phosphatase 98 (38-126) U/L Total Protein 6.9 (6.3-8.2) g/dL Albumin 4.6 (3.5-5.0) g/dL Amylase 51 (30-110) U/L Lipase 363 H (23-300) U/L Urine Color Urine Appearance (Clear) Urine pH (5.0-8.0) Ur Specific [place] (1.001-1.035) Urine Protein (Negative) Urine Glucose (UA) (Negative) Urine Ketones (Negative) Urine Blood (Negative) Urine Nitrite (Negative) Urine Bilirubin (Negative) Urine Urobilinogen (<2.0) mg/dL Ur Leukocyte Esterase (Negative) Urine RBC (0-5) /hpf Urine WBC (0-5) /hpf Ur Squamous Epith Cells (0-4) /hpf Hyaline Casts (0-2) /lpf Urine Mucus (None) /hpf Serum Alcohol 194 mg/dL 07/02/17 Range/Units 16:32 WBC (3.8-10.6) k/uL RBC (4.30-5.90) m/uL Hgb (13.0-17.5) gm/dL Hct (39.0-53.0) % MCV (80.0-100.0) fL MCH (25.0-35.0) pg MCHC (31.0-37.0) g/dL RDW (11.5-15.5) % Plt Count (150-450) k/uL Neutrophils % % Lymphocytes % % Monocytes % % Eosinophils % % Basophils % % Neutrophils # (1.3-7.7) k/uL Lymphocytes # (1.0-4.8) k/uL Monocytes # (0-1.0) k/uL Eosinophils # (0-0.7) k/uL Basophils # (0-0.2) k/uL PT (9.0-12.0) sec INR (<1.1) Sodium (137-145) mmol/L Potassium (3.5-5.1) mmol/L Chloride (98-107) mmol/L Carbon Dioxide (22-30) mmol/L Anion Gap mmol/L BUN (9-20) mg/dL Creatinine (0.66-1.25) mg/dL Est GFR (MDRD) Af Amer (>60 ml/min/1.73 sqM) Est GFR (MDRD) Non-Af (>60 ml/min/1.73 sqM) Glucose (74-99) mg/dL Calcium (8.4-10.2) mg/dL Phosphorus (2.5-4.5) mg/dL Magnesium (1.6-2.3) mg/dL Total Bilirubin (0.2-1.3) mg/dL AST (17-59) U/L ALT (21-72) U/L Alkaline Phosphatase (38-126) U/L Total Protein (6.3-8.2) g/dL Albumin (3.5-5.0) g/dL Amylase (30-110) U/L Lipase (23-300) U/L Urine Color Yellow Urine Appearance Clear (Clear) Urine pH 6.0 (5.0-8.0) Ur Specific [place] 1.012 (1.001-1.035) Urine Protein Trace H (Negative) Urine Glucose (UA) Negative (Negative) Urine Ketones 2+ H (Negative) Urine Blood Trace H (Negative) Urine Nitrite Negative (Negative) Urine Bilirubin Negative (Negative) Urine Urobilinogen <2.0 (<2.0) mg/dL Ur Leukocyte Esterase Negative (Negative) Urine RBC 2 (0-5) /hpf Urine WBC 1 (0-5) /hpf Ur Squamous Epith Cells <1 (0-4) /hpf Hyaline Casts 12 H (0-2) /lpf Urine Mucus Rare H (None) /hpf Serum Alcohol mg/dL Disposition Clinical Impression: Alcoholic intoxication Disposition: HOME SELF-CARE Condition: Stable Instructions: Alcohol Withdrawal (ED) Additional Instructions: Please use medication as discussed. Please follow up with family doctor if symptoms have not improved over the next two days. Please return to the emergency room if your symptoms increase or worsen or for any other concerns. Prescriptions: chlordiazePOXIDE HCl [Librium] 25 mg PO DIRECTED 6 Days Referrals: Benjie Harris MD [Primary Care Provider] - 1-2 days
[2016-09-13 17:08] LABS: Appearance,Urine Clear (Clear); Bilirubin,Urine Negative (Negative); Glucose,Urine (UA) Negative (Negative); Ketones,Urine 2+ (Negative); Leukocyte Esterase,Urine Negative (Negative); Mucus,Urine Rare /hpf; Nitrite,Urine Negative (Negative); Particle Count 3645; Protein,Urine Trace (Negative); RBC,Urine 2 /hpf (0-5); Specific Gravity,Urine 1.012 (1.001-1.035); Squamous Epithelial Cell,Urine <1 /hpf (0-4); UA Billing (MACRO vs. MICRO) MICRO; Urobilinogen,Urine <2.0 mg/dL (<2.0); WBC,Urine 1 /hpf (0-5)
[2016-09-13] MEDS ORDERED: LORazepam 2 MG/ML SYRINGE IV STA (17:49)
[2016-09-13] MEDS ORDERED: LORazepam 2 MG/ML SYRINGE IV PRN ×3 (19:00)
[2016-09-13 20:52] VITALS: BP 97/50; PULSE 63; RESP 16; TEMP 99.2
== END 2016-09-13 21:00 | disposition home or self-care (01) ==
LOC: EC 15:46
DX: F10.129 Alcohol abuse with intoxication, unspecified (principal); I10 Essential (primary) hypertension; Z88.1 Allergy status to other antibiotic agents; Z88.0 Allergy status to penicillin; Z88.2 Allergy status to sulfonamides; Z88.5 Allergy status to narcotic agent; Z79.82 Long term (current) use of aspirin; Z79.899 Other long term (current) drug therapy
CPT/HCPCS: 99284; 96374; 96375; 96376; 96361 ×2; 96372; 36415; 80053; 82150; 83690; 83735; 84100; 85025; 85610; 81001; 80320; J2060; J3411; J2405

== ENCOUNTER 2016-10-26 18:58 | Inpatient (IN) | payer MEDICARE, OTHER ==
[2016-10-26] MEDS ORDERED: NITROGLYCERIN OINT 1 INCH/GM PACKET TOPICAL STA (19:16)
[2016-10-26] MEDS ORDERED: SODIUM CHLORIDE 0.9% 1,000 ML IV STA (19:16)
[2016-10-26] MEDS ORDERED: LORazepam 2 MG/ML SYRINGE IV STA (19:17)
[2016-10-26] MEDS ORDERED: ONDANSETRON 4 MG/2 ML VIAL IVP STA (19:21)
--- NOTE | 2016-10-26 19:21 | ED ---
General Adult HPI - General Chief complaint: Recheck/Abnormal Lab/Rx Stated complaint: non STEMI elevation Time Seen by Provider: 10/26/16 19:07 Source: patient, EMS Mode of arrival: EMS - History of Present Illness Initial comments: This 66-year-old white male presents by EMS from [facility] emergency department. He apparently was brought into their facility after being found unconscious in an alley with a half fifth of vodka laying next to him. He apparently had a strong odor of alcohol. Well at [facility] he had some laboratory drawn which showed an elevation of his troponin 2. He apparently was hypotensive upon arrival to their hospital as well. They're unable to keep them at his small facility due to the elevated troponin and transferred him here upon patient request. The patient currently complains of feeling as though he is going through some alcohol withdrawal. He states that he's been drinking one half to a full fifth of alcohol per day for the last 2 weeks. He previously had been in remission. He complains of slight nausea. He has no other complaints. His alcohol level at [facility] was 270. He denies any known previous cardiac disease. He has a history of a remote stress test many years ago but no history of heart catheterization. He denies ever having any chest pain or shortness of breath. No other complaints or modifying factors. - Related Data Home Medications Medication Instructions Recorded Confirmed Losartan Potassium 100 mg PO DAILY 09/25/14 10/26/16 Furosemide [Lasix] 20 mg PO DAILY 06/26/16 10/26/16 Multivit-Min/FA/Lycopen/Lutein 1 tab PO DAILY 06/26/16 10/26/16 [Centrum Silver Men Tablet] Aspirin 1,300 mg PO DAILY PRN 08/02/16 10/26/16 Ibuprofen [Motrin] 800 mg PO Q4HR PRN 08/02/16 10/26/16 NIFEdipine [Procardia Xl] 30 mg PO HS 08/18/16 10/26/16 Previous Rx's Medication Instructions Recorded Thiamine [Vitamin B-1] 100 mg PO DAILY #7 tablet 08/03/16 Allergies Allergy/AdvReac Type Severity Reaction Status Date / Time acetaminophen [From Vicodin] Allergy Rash/Hives Verified 10/26/16 19:34 clindamycin Allergy Rash/Hives Verified 10/26/16 19:34 hydrocodone bitartrate Allergy Rash/Hives Verified 10/26/16 19:34 [From Vicodin] Penicillins Allergy Rash/Hives Verified 10/26/16 19:34 Sulfa (Sulfonamide Allergy Rash/Hives Verified 10/26/16 19:34 Antibiotics) Review of Systems ROS Statement: Those systems with pertinent positive or pertinent negative responses have been documented in the HPI. ROS Other: All systems not noted in ROS Statement are negative. Past Medical History Past Medical History: Hypertension Additional Past Medical History / Comment(s): HYPOGLYCEMIA,LUMBAR STENOSIS, History of Any Multi-Drug Resistant Organisms: None Reported Past Surgical History: Orthopedic Surgery Additional Past Surgical History / Comment(s): RIGHT TORN ACL, HYDROCELE Past Anesthesia/Blood Transfusion Reactions: No Reported Reaction Past Psychological History: Depression Smoking Status: Never smoker Past Alcohol Use History: Abuse, Daily, Heavy Past Drug Use History: None Reported - Past Family History Father Family Medical History: CVA/TIA Mother Family Medical History: Cancer, Deep Vein Thrombosis (DVT) General Exam - General Exam Comments Initial Comments: GENERAL: The patient is well nourished and well hydrated. VITAL SIGNS: Heart rate, blood pressure, respiratory rate reviewed as recorded in nurse's notes. EYES: Pupils are round and reactive. Extraocular movements are intact. No conjunctival / lid redness or swelling. ENT: There is a slight abrasion lateral to the left eye as well as on the anterior scalp region. Airway is patent. Throat is clear. NECK: Nontender. No swelling or evidence of injury. No subcutaneous emphysema. Trachea is midline. No thyroid mass. HEART: Regular rate and rhythm. Good peripheral pulses. LUNGS/CHEST: Breath sounds clear and equal bilaterally. No rales, rhonchi, or wheezes. No ecchymosis, subcutaneous emphysema, or tenderness. ABDOMEN: Abdomen soft without tenderness. No palpable masses or organomegaly. No peritoneal signs. No abdominal wall swelling or ecchymosis. EXTREMITIES: No extremity tenderness. Normal muscle tone and function. No thoracolumbar tenderness. NEUROLOGIC: Sensation is grossly intact. Cranial nerve exam reveals face is symmetrical, tongue is midline, speech is clear. No tremor identified. SKIN: No abrasions or ecchymosis is noted. No induration or masses noted. PSYCHIATRIC: Alert and oriented. Appropriate behavior and judgment. Strong odor of alcohol is noted. Course Vital Signs 10/26/16 19:02 Temperature 97.8 F Pulse Rate 74 Respiratory 20 Rate Blood Pressure 121/67 O2 Sat by Pulse 98 Oximetry Medical Decision Making - Medical Decision Making The patient was seen and examined. All diagnostics were reviewed. His alcohol level is elevated at 270 from previous facility. His troponin is also elevated on 2 different sets with values of 0.066 and 0.068. The transaminase levels are slightly elevated consistent with alcohol abuse. Remainder of labs are unremarkable. He also has an EKG done here which shows a normal sinus rhythm at a rate of 73. There is no acute ST-T wave changes. The VA interval is 160, QRS duration is 106, and the QTc interval is prolonged at 515. He states that he is feeling as though he is going through withdrawals and receives 1 mg of Ativan intravenously. An aspirin and Nitropaste are also ordered. Is felt as though he would require admission to the hospital for the possibility of a non- ST elevation myocardial infarction. He is agreeable. He had a chest x-ray, CT scan of the brain, and CT of the cervical spine which is reportedly negative per transferring facility. The patient's troponin was elevated here as well as 0.067. The CPK and CK-MB are slightly elevated. Case is discussed with Rigo Patel with the hospitalist group and she is agreeable to admission. - Lab Data Lab Results 10/26/16 Range/Units 19:25 Total Creatine Kinase 288 H (55-170) U/L CK-MB (CK-2) 4.9 H* (0.0-2.4) ng/mL CK-MB (CK-2) Rel Index 1.7 Troponin I 0.067 H* (0.000-0.034) ng/mL Disposition Clinical Impression: Alcohol intoxication, Elevated troponin, Syncope, Non-ST elevated myocardial infarction, Alcohol withdrawal, Hypotension, Nausea, Prolonged Q-T interval on ECG, Scalp abrasion Disposition: ADMITTED IP TO THIS HOSP Condition: Fair Time of Disposition: : Decision Date: 10/26/16 Decision Time: :
[2016-10-26] MEDS ORDERED: ASPIRIN 81 MG CHEW PO STA (19:24)
[2016-10-26] MEDS ORDERED: HEPARIN SODIUM,PORCINE 5,000 UNIT/ML 1 ML VIAL IV ONE (19:46)
[2016-10-26] MEDS ORDERED: NITROGLYCERIN SL TABS 0.4 MG TAB SUBLINGUAL PRN (19:46)
[2016-10-26] MEDS ORDERED: LORazepam 2 MG/ML SYRINGE IV PRN (19:50)
[2016-10-26] MEDS: HEPARIN SODIUM,PORCINE/D5W PMX 25,000 UNIT in DEXTROSE/WATER 1 500ML.BAG IV SCH (20:04)
[2016-10-26 20:19] LABS: Creatine Kinase MB 4.9 ng/mL (0.0-2.4); Troponin I 0.067 ng/mL (0.000-0.034)
[2016-10-26] MEDS: LORazepam 2 MG/ML SYRINGE IV PRN (20:54)
[2016-10-26] MEDS: NIFEdipine XL 30 MG TAB.ER.24 PO SCH (23:12)
[2016-10-26] MEDS: NITROGLYCERIN OINT 1 INCH/GM PACKET TOPICAL SCH (23:42)
[2016-10-27 02:52] LABS: Creatine Kinase MB 4.5 ng/mL (0.0-2.4); Troponin I 0.082 ng/mL (0.000-0.034)
[2016-10-27] MEDS: LORazepam 2 MG/ML SYRINGE IV PRN ×5 (03:46→21:27)
[2016-10-27] MEDS: NITROGLYCERIN OINT 1 INCH/GM PACKET TOPICAL SCH ×4 (06:29→23:34)
--- NOTE | 2016-10-27 08:06 | P.CRDCN ---
History of Present Illness Consult date: 10/27/16 Requesting physician: Vasu Jurado Reason for Consult (text): Abnormal troponins Chief complaint: EtOH intoxication and syncope History of present illness: This is a 66-year-old gentleman with history of hypertension, EtOH abuse, patient denies any history of diabetes, no hyperlipidemia, no family history of premature coronary artery disease, he is a nonsmoker, who was apparently found in an alley passed out with a bottle of vodka beside him. He was brought to [facility], lab tests were performed including cardiac enzymes, troponins came back to be abnormal and for this reason he was transferred here. Lab data [facility], WBC 6.6, hemoglobin 14.6, platelets 205, sodium 137, potassium 3.5, BUN 32, creatinine 1.3. AST 156, ALT 151. CK 261 and 279, MB 5.07, 5.32. Troponins 0.066, 0.068. TSH 1.07 alcohol level 270. Magnesium level II.1 INR 1.0 blood pressure on arrival to [place] 97/47, O2 sat 97% on room air, respirations 20, temperature 98.5 EKG performed on arrival here showed a normal sinus rhythm with no acute changes. EKG performed on arrival here to [facility] showed a normal sinus rhythm with no acute changes. Lab data here, troponin 0.067, 0.082. No chest x-ray available. Blood pressure this morning 128/58 with a heart rate in the 90s, 94% on 2 L of oxygen. Temperature 97.3. At the time of my examination this morning, patient denies any chest discomfort, no difficulty in breathing. He is mildly shaky, likely secondary to EtOH withdrawal. Past Medical History Past Medical History: Hypertension Additional Past Medical History / Comment(s): HYPOGLYCEMIA,LUMBAR STENOSIS, History of Any Multi-Drug Resistant Organisms: None Reported Past Surgical History: Orthopedic Surgery Additional Past Surgical History / Comment(s): RIGHT TORN ACL, HYDROCELE Past Anesthesia/Blood Transfusion Reactions: No Reported Reaction Past Psychological History: Depression Smoking Status: Never smoker Past Alcohol Use History: Abuse, Daily, Heavy Past Drug Use History: None Reported - Past Family History Father Family Medical History: CVA/TIA Mother Family Medical History: Cancer, Deep Vein Thrombosis (DVT) Medications and Allergies Home Medications Medication Instructions Recorded Confirmed Type Losartan Potassium 100 mg PO DAILY 09/25/14 10/26/16 History Furosemide [Lasix] 20 mg PO DAILY 06/26/16 10/26/16 History Multivit-Min/FA/Lycopen/Lutein 1 tab PO DAILY 06/26/16 10/26/16 History [Centrum Silver Men Tablet] Aspirin 1,300 mg PO DAILY PRN 08/02/16 10/26/16 History Ibuprofen [Motrin] 800 mg PO Q4HR PRN 08/02/16 10/26/16 History NIFEdipine [Procardia Xl] 30 mg PO HS 08/18/16 10/26/16 History Gabapentin [Neurontin] 300 mg PO BID 10/27/16 10/27/16 History Allergies Allergy/AdvReac Type Severity Reaction Status Date / Time acetaminophen [From Vicodin] Allergy Rash/Hives Verified 10/26/16 19:34 clindamycin Allergy Rash/Hives Verified 10/26/16 19:34 hydrocodone bitartrate Allergy Rash/Hives Verified 10/26/16 19:34 [From Vicodin] Penicillins Allergy Rash/Hives Verified 10/26/16 19:34 Sulfa (Sulfonamide Allergy Rash/Hives Verified 10/26/16 19:34 Antibiotics) Physical Exam Vitals: Vital Signs Temp Pulse Pulse Resp BP BP Pulse Ox 10/27/16 03:59 97.3 F L 96 16 128/58 94 L 10/27/16 00:00 97.1 F L 84 16 118/56 97 10/26/16 22:00 92 16 104/55 96 10/26/16 21:00 86 20 106/56 95 10/26/16 20:21 97.1 F L 84 16 118/56 97 10/26/16 19:46 97 10/26/16 19:08 85 20 128/68 100 10/26/16 19:02 97.8 F 74 20 121/67 98 Intake and Output 10/26/16 10/27/16 10/27/16 22:59 06:59 14:59 Intake Total 75 526.038 Output Total 300 200 Balance -225 326.038 Intake: IV 75 412.5 Sodium Chloride 0.9% 1, 75 412.5 000 ml @ 75 mls/hr IV . [id number] [facility]A Rx#:[id number] Intake, IV Titration 113.538 Amount Heparin Sodium,Porcine/ 113.538 D5w Pmx 25,000 unit In Dextrose/Water 1 500ml. bag @ 12 UNITS/KG/HR 15. 24 mls/hr IV .Q24H [facility] Rx #:[id number] Output: Urine 300 200 Other: Voiding Method Toilet Weight 55.5 kg 100.5 kg PHYSICAL EXAMINATION: HEENT: Head is atraumatic, normocephalic. Pupils equal, round. Neck is supple. There is no elevated jugular venous pressure. HEART EXAMINATION: Heart S1, S2 normal. No murmur or gallop heard. CHEST EXAMINATION: Lungs are clear to auscultation and precussion. No chest wall tenderness is noted on palpation or with deep breathing. ABDOMEN: Soft, nontender. Bowel sounds are heard. No organomegaly noted. EXTREMITIES: 2+ peripheral pulses with no evidence of peripheral edema and no calf tenderness noted. NEUROLOGIC patient is awake, alert and oriented -3. . Results Cardiac Enzymes 10/26/16 10/27/16 Range/Units 19:25 01:53 CK-MB (CK-2) 4.9 H* 4.5 H* (0.0-2.4) ng/mL Troponin I 0.067 H* 0.082 H* (0.000-0.034) ng/mL Coagulation 10/27/16 10/27/16 Range/Units 01:53 06:57 APTT 28.5 30.1 H (22.0-30.0) sec Current Medications Generic Name Dose Route Start Last Admin Trade Name Freq PRN Reason Stop Dose Admin Aspirin 325 mg 10/27/16 09:00 Aspirin PO DAILY [facility] Furosemide 20 mg 10/27/16 09:00 Lasix PO DAILY [facility] Heparin Sodium (Porcine) 0 unit 10/26/16 19:46 Heparin IV Q6HR PRN Low PTT Protocol Sodium Chloride 1,000 mls @ 75 mls/hr 10/26/16 19:16 10/26/16 19:25 Saline 0.9% IV 10/27/16 08:35 75 mls/hr .[id number] STA Administration Heparin Sodium/Dextrose 25,000 500 mls @ 15.24 mls/hr 10/26/16 20:00 03:31 unit/ IV Solution IV 15 units/kg/hr .Q24H [facility] 19.05 mls/hr Protocol Titration 12 UNITS/KG/HR Lorazepam 1 mg 10/26/16 19:50 10/27/16 03:46 Ativan IV 1 mg Q2HR PRN Administration CIWA 8 or 9 Lorazepam 1 mg 10/26/16 19:50 10/26/16 20:54 Ativan IV 1 mg Q1HR PRN Administration CIWA 10 to 15 Lorazepam 2 mg 10/26/16 19:50 Ativan IV 11/25/16 19:51 Q10M PRN CIWA 16 or higher Losartan Potassium 100 mg 10/27/16 09:00 Cozaar PO DAILY [facility] Multivitamins 1 each 10/27/16 12:00 Theragran PO 1200 [facility] Nifedipine 30 mg 10/26/16 21:00 10/26/16 23:12 Procardia Xl PO 30 mg HS [facility] Administration Nitroglycerin 1 inch 10/27/16 00:00 10/27/16 06:29 Nitro-Bid Oint TOPICAL Not Given Q6HR [facility] Nitroglycerin 0.4 mg 10/26/16 19:46 Nitrostat SUBLINGUAL Q5M PRN Chest Pain Thiamine HCl 100 mg 10/27/16 12:00 Vitamin B-1 PO 1200 [facility] Intake and Output 10/26/16 10/27/16 10/27/16 22:59 06:59 14:59 Intake Total 75 526.038 Output Total 300 200 Balance -225 326.038 Intake: IV 75 412.5 Sodium Chloride 0.9% 1, 75 412.5 000 ml @ 75 mls/hr IV . [id number] [facility] Rx#:[id number] Intake, IV Titration 113.538 Amount Heparin Sodium,Porcine/ 113.538 D5w Pmx 25,000 unit In Dextrose/Water 1 500ml. bag @ 12 UNITS/KG/HR 15. 24 mls/hr IV .Q24H [facility] Rx #:[id number] Output: Urine 300 200 Other: Voiding Method Toilet Weight 55.5 kg 100.5 kg EKG Interpretations (text) EKG shows a normal sinus rhythm with no acute changes. Assessment and Plan Plan: Assessment and plan #1 unresponsiveness with evidence of EtOH intoxication. #2 abnormal troponins, not consistent with acute coronary syndrome, could be secondary to hypotension on arrival to [facility]. EKG shows normal sinus rhythm with no acute changes. #3 history of hypertension #4 history of EtOH abuse #5 recent arthroscopic surgery on the right knee #6 abnormal liver enzymes, likely secondary to EtOH abuse. Plan We will obtain an echocardiogram with Doppler study. We will also obtain a d- dimer. Once the patient is stable from an EtOH perspective, he will require stress testing to rule out underlying coronary artery disease. We will obtain a fasting lipid profile. Further recommendations to follow. DNP note has been reviewed, I agree with a documented findings and plan of care. Patient was seen and examined.
[2016-10-27 08:12] LABS: Alcohol <10 mg/dL; Cholesterol 136 mg/dL (<200); HDL Cholesterol 85 mg/dL (40-60)
[2016-10-27 08:28] LABS: Creatine Kinase MB 3.7 ng/mL (0.0-2.4); Troponin I 0.081 ng/mL (0.000-0.034)
[2016-10-27] MEDS ORDERED: FUROSEMIDE 20 MG TAB PO SCH (09:00)
[2016-10-27] MEDS: HEPARIN SODIUM,PORCINE 5,000 UNIT/ML 1 ML VIAL IV PRN ×2 (09:37→15:51)
[2016-10-27] MEDS: ASPIRIN 325 MG TAB PO SCH (09:38)
--- NOTE | 2016-10-27 09:57 | ECHOF ---
Referral Reason:nstemi MEASUREMENTS -------- HEIGHT: 177.8 cm WEIGHT: 100.2 kg BP: 128/58 RVIDd: 3.4 cm (< 3.3) IVSd: 0.9 cm (0.6 - 1.1) LVIDd: 4.4 cm (3.9 - 5.3) LVPWd: 1.1 cm (0.6 - 1.1) IVSs: 1.7 cm LVIDs: 2.8 cm LVPWs: 1.5 cm LA Diam: 3.9 cm (2.7 - 3.8) LAESV Index (A-L): 35.95 ml/m Ao Diam: 3.5 cm (2.0 - 3.7) AV Cusp: 2.6 cm (1.5 - 2.6) MV EXCURSION: 16.659 mm (> 18.000) MV EF SLOPE: 22 mm/s (70 - 150) EPSS: 0.5 cm MV E Quan: 0.98 m/s MV DecT: 300 ms MV A Quan: 0.95 m/s MV E/A Ratio: 1.03 AV maxP.00 mmHg AV maxP.00 mmHg AV meanP.61 mmHg FINDINGS -------- Sinus rhythm. This was a technically adequate study. The left ventricular size is normal. Left ventricular wall thickness is normal. Overall left ventricular systolic function is normal with, an EF between 60 - 65 %. The right ventricle is mildly enlarged. LA is moderately dilated 34-39 ml/m2 The right atrium is normal in size. The aortic valve is trileaflet and appears structurally normal. The mitral valve is normal. The tricuspid valve appears structurally normal. Trace/mild (physiologic) pulmonic regurgitation. The aortic root size is normal. IVC Not well visulized. The pericardium is normal. CONCLUSIONS -------- 1. Sinus rhythm. 2. The mitral valve is normal. 3. The tricuspid valve appears structurally normal. 4. Trace/mild (physiologic) pulmonic regurgitation. 5. The aortic root size is normal. 6. IVC Not well visulized. 7. The pericardium is normal. 8. This was a technically adequate study. 9. The left ventricular size is normal. 10. Left ventricular wall thickness is normal. 11. Overall left ventricular systolic function is normal with, an EF between 60 - 65 %. 12. The right ventricle is mildly enlarged. 13. LA is moderately dilated 34-39 ml/m2 14. The right atrium is normal in size. 15. The aortic valve is trileaflet and appears structurally normal. MONITORING MANAGER: Johanne Gudino RDCS
[2016-10-27 10:34] VITALS: BMI 31.8
[2016-10-27] MEDS ORDERED: RX INFO: IV CONTRAST WAS GIVEN 1 EACH MISC MISCELLANE PRN (11:32)
[2016-10-27 11:54] LABS: CH 32.3; CHCM 34.2; HDW 2.26; HGB 13.1 gm/dL (13.0-17.5); MCH 31.2 pg (25.0-35.0); MCHC 32.9 g/dL (31.0-37.0); MCV 94.9 fL (80.0-100.0); Mean Platelet Volume 9.9; RBC 4.21 m/uL (4.30-5.90); RDW 13.9 % (11.5-15.5); WBC 5.2 k/uL (3.8-10.6)
[2016-10-27] MEDS ORDERED: Potassium Replacement Protocol 1 EACH MISC MISCELLANE PRN (12:09)
[2016-10-27 12:14] LABS: ALT 120 U/L (21-72); AST 120 U/L (17-59); Alkaline Phosphatase 78 U/L (38-126); Blood Urea Nitrogen 21 mg/dL (9-20); Carbon Dioxide 21 mmol/L (22-30); Chloride 101 mmol/L (98-107); Glucose 87 mg/dL (74-99); Magnesium 2.3 mg/dL (1.6-2.3); Non-African American GFR(MDRD) >60 (>60 ml/min/1.73 sqM); Potassium 3.3 mmol/L (3.5-5.1); Total Bilirubin 0.9 mg/dL (0.2-1.3); Total Protein 5.4 g/dL (6.3-8.2)
[2016-10-27 12:15] LABS: Anion Gap 12 mmol/L; Sodium 134 mmol/L (137-145)
[2016-10-27] MEDS: SODIUM CHLORIDE 0.9% 1,000 ML IV SCH ×2 (12:48→23:34)
--- NOTE | 2016-10-27 12:51 | CT ---
EXAMINATION TYPE: CT angio chest DATE OF EXAM: 10/27/2016 COMPARISON: Radiograph 10/26/2016 HISTORY: 66 year-old male shortness of breath, rule out PE TECHNIQUE: Contiguous axial scanning of the chest performed with IV Contrast, patient injected with 8 0 mL of Visipaque 320. Coronal/sagittal MIP reconstructions performed. CT DLP: 423.1 mGycm Automated exposure control for dose reduction was used. FINDINGS: The heart is upper limits of normal in size without pericardial effusion. 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 Conventional arch vessel branching anatomy. Mild aneurysm up per descending thoracic aorta at 3.1 cm and mildly ectatic lower descending thoracic aorta at 2.6 cm. No thoracic lymphadenopathy. There is a prominent 8 mm right bronchial lymph node axial image 82. Satisfactory opacification of the pulmonary arterial system though with excessive respiratory motion limiting the evaluation for pulmonary embolus. The motion causes heterogeneity of the pulmonary arter ies. Within this limitation, no definite embolism is seen at least to the proximal segmental level. Some mild dependent atelectasis. No consolidation or pleural effusion. Tiny calcified granuloma poste rior left base axial image 120. There is severe fatty infiltration of the liver with density lower than that of water. Some possible partially visualized and fat stranding along the left retroperitoneum below the level of the lower sp lenic pole, axial image 151. Bones: Mild multilevel endplate spondylosis. IMPRESSION: 1. EXCESSIVE BREATHING MOTION ARTIFACTS LIMITING ASSESSMENT FOR PULMONARY EMBOLISM. NO DEFINITE PULMO NARY EMBOLUS SEEN TO THE PROXIMAL SEGMENTAL LEVEL. MANY OF THE SMALLER DISTAL ARTERIAL BRANCHES ARE N ONDIAGNOSTIC. 2. NO ACUTE PULMONARY PROCESS. 3. SEVERE LOW DENSITY OF THE LIVER. DENSITY MEASURES LESS THAN THAT OF WATER SUGGESTING SEVERE HEPATI C STEATOSIS. CORRELATE CLINICALLY TO EXCLUDE THE POSSIBILITY OF HEPATITIS. 4. PARTIALLY VISUALIZED OPACITY NEAR THE LEFT RETROPERITONEUM. EXACT ETIOLOGY IS UNCERTAIN. SOME FOCA L INFLAMMATION IS DIFFICULT TO EXCLUDE. THE DESCENDING COLON AND PANCREATIC TAIL ARE JUST ADJACENT. C ORRELATE WITH PATIENT'S SYMPTOMS.
[2016-10-27] MEDS: MULTIVITAMINS, THERA 1 EACH TAB PO SCH (12:55)
[2016-10-27] MEDS: LOSARTAN 50 MG TAB PO SCH (12:55)
[2016-10-27] MEDS: POTASSIUM CHLORIDE ER 20 MEQ TAB.ER PO SCH ×2 (12:56→14:17)
[2016-10-27] MEDS: THIAMINE 100 MG TAB PO SCH (12:56)
--- NOTE | 2016-10-27 14:57 | HP ---
DATE OF SERVICE: 10/27/2016 Chief complaints are syncope and EtOH. HISTORY OF PRESENT ILLNESS: This is a 66-year-old gentleman with a past medical history of multiple medical problems including hypertension, hyperglycemia being followed by the primary physician, Dr. Harris in the outpatient setting, was referred from [facility]. The patient presented from [facility] with episodes of syncope and unconsciousness with 1/2 of a fifth of vodka lying beside. Alcohol level was elevated. The troponins are also elevated and patient referred to [facility] and admitted for further evaluation and treatment. The EKG showed no acute changes. Cardiology evaluation in progress. D-dimer was elevated and CT of the chest was also noted. Multiple nebulous abnormalities were also noted. Currently, the patient is able to . PAST MEDICAL HISTORY: Hypertension, history of depression. Medications prior to admission include, home medications: 1. Neurontin 300 mg p.o. b.i.d. 2. Vitamin B 100 mg p.o. daily. 3. Procardia XL 30 mg q.h.s. 4. Multivitamin 1 p.o. daily. 5. Losartan 100 mg p.o. daily. 6. Motrin 800 mg q.4 p.r.n. 7. Lasix 20 mg daily. 8. Aspirin 1300 mg daily p.r.n. Allergies are VICODIN, CLINDAMYCIN, PENICILLIN, SULFA. FAMILY HISTORY, SOCIAL HISTORY, REVIEW OF SYSTEMS: Could not be taken at length. History of CVA in the family, history of alcohol. No history of smoking as mentioned. PHYSICAL EXAMINATION: Patient is stuporous, arousable and oriented x1. Pulse 95, blood pressure 138/ 74, respirations 16, temperature is 97.0, pulse ox 94% on 4 L. HEENT: Conjunctivae normal. Oral mucosa moist. Neck is no jugular venous distension. No carotid bruit, no lymph node enlargement. CARDIOVASCULAR SYSTEM: S1, S2, muffled. RESPIRATORY: Breath sounds diminished at the bases. A few scattered rhonchi, no crackles. ABDOMEN: Soft, nontender, no mass palpable. LEGS: No edema, no swelling. NERVOUS SYSTEM: Higher functions as mentioned earlier. Moves all 4 limbs. A full exam is not possible. SKIN: present. JOINT: No active deformity or arthropathy. LAB: Investigations at this time shows WBC 5.8, hemoglobin is 13.1, INR 1.1, sodium 134, potassium 3.3., troponin 0.081, CK is 255, ALT is 120. ASSESSMENT: 1. Syncope, change in mental status with metabolic encephalopathy with alcohol intoxication. Troponin 0.082. Rule out acute non-ST elevation myocardial infarction. 2. Hyponatremia. 3. Hypokalemia. 4. Depression. 5. Hypertension, history of. RECOMMENDATION: In this 66-year-old gentleman who presented with multiple complex medical issues, will monitor the patient closely. Continue with the current medication and symptomatic treatment. Otherwise, continue with antiplatelets. Cardiology consultation. Continue to monitor. Alcoholic CIWA protocol. Prognosis guarded because of multiple complex medical issues. Further recommendations to follow. MTDD
[2016-10-27] MEDS ORDERED: POTASSIUM CHLORIDE ER 20 MEQ TAB.ER PO SCH (18:00)
[2016-10-27] MEDS: NIFEdipine XL 30 MG TAB.ER.24 PO SCH (19:48)
[2016-10-27] MEDS: HEPARIN SODIUM,PORCINE/D5W PMX 25,000 UNIT in DEXTROSE/WATER 1 500ML.BAG IV SCH (21:27)
[2016-10-28] MEDS: LORazepam 2 MG/ML SYRINGE IV PRN ×7 (00:05→21:23)
[2016-10-28] MEDS: NITROGLYCERIN OINT 1 INCH/GM PACKET TOPICAL SCH ×2 (05:10→11:25)
[2016-10-28 06:14] LABS: Mean Platelet Volume 7.7
[2016-10-28 06:34] LABS: Anion Gap 6 mmol/L; Blood Urea Nitrogen 13 mg/dL (9-20); Calcium 8.4 mg/dL (8.4-10.2); Carbon Dioxide 27 mmol/L (22-30); Chloride 104 mmol/L (98-107); Glucose 107 mg/dL (74-99); Non-African American GFR(MDRD) >60 (>60 ml/min/1.73 sqM); Potassium 3.6 mmol/L (3.5-5.1); Sodium 137 mmol/L (137-145)
[2016-10-28] MEDS: ASPIRIN 325 MG TAB PO SCH (08:05)
[2016-10-28] MEDS ORDERED: POTASSIUM CHLORIDE ER 20 MEQ TAB.ER PO SCH (09:00)
[2016-10-28] MEDS: SODIUM CHLORIDE 0.9% 1,000 ML IV SCH (09:42)
[2016-10-28] MEDS: THIAMINE 100 MG TAB PO SCH (11:25)
[2016-10-28] MEDS: MULTIVITAMINS, THERA 1 EACH TAB PO SCH (11:25)
[2016-10-28] MEDS: LOSARTAN 50 MG TAB PO SCH (11:25)
--- NOTE | 2016-10-28 13:40 | P.PN ---
Subjective This is a 66-year-old gentleman with history of hypertension, EtOH abuse, patient denies any history of diabetes, no hyperlipidemia, no family history of premature coronary artery disease, he is a nonsmoker, who was apparently found in an alley passed out with a bottle of vodka beside him. He was brought to [facility], lab tests were performed including cardiac enzymes, troponins came back to be abnormal and for this reason he was transferred here. Lab data [facility], WBC 6.6, hemoglobin 14.6, platelets 205, sodium 137, potassium 3.5, BUN 32, creatinine 1.3. AST 156, ALT 151. CK 261 and 279, MB 5.07, 5.32. Troponins 0.066, 0.068. TSH 1.07 alcohol level 270. Magnesium level II.1 INR 1.0 blood pressure on arrival to [place] 97/47, O2 sat 97% on room air, respirations 20, temperature 98.5 EKG performed on arrival here showed a normal sinus rhythm with no acute changes. EKG performed on arrival here to [facility] showed a normal sinus rhythm with no acute changes. Lab data here, troponin 0.067, 0.082. No chest x-ray available. Blood pressure this morning 128/58 with a heart rate in the 90s, 94% on 2 L of oxygen. Temperature 97.3. At the time of my examination this morning, patient denies any chest discomfort, no difficulty in breathing. He is mildly shaky, likely secondary to EtOH withdrawal. 10/28/2016 Echocardiogram with Doppler study was performed which revealed an ejection fraction of 60-65%. Blood pressure 134/70 with a heart rate in the 80s. Patient denies any further chest discomfort. Objective - Vital Signs Vital signs: Vital Signs Temp 99.2 F 10/28/16 11:23 Pulse 86 10/28/16 11:23 Resp 20 10/28/16 11:23 BP 134/79 10/28/16 11:23 Pulse Ox 97 10/28/16 11:23 Intake & Output 10/27/16 10/28/16 10/28/16 18:59 06:59 18:59 Intake Total 509.524 033.044 8146 Output Total 1100 300 250 Balance -590.476 483.241 800 Weight 100.5 kg 103.1 kg Intake: IV 600 Sodium Chloride 0.9% 1, 600 000 ml @ 75 mls/hr IV . [id number] STA Rx#:[id number] Intake, IV Titration 259.524 183.241 600 Amount Heparin Sodium,Porcine/ 259.524 183.241 D5w Pmx 25,000 unit In Dextrose/Water 1 500ml. bag @ 12 UNITS/KG/HR 15. 24 mls/hr IV .Q24H [facility] Rx #:[id number] Sodium Chloride 0.9% 1, 600 000 ml @ 75 mls/hr IV . [id number] [facility] Rx#:[id number] Oral 250 450 Output: Urine 1100 300 250 Other: Voiding Method Urinal Urinal Incontinent Incontinent - Exam PHYSICAL EXAMINATION: HEENT: Head is atraumatic, normocephalic. Pupils equal, round. Neck is supple. There is no elevated jugular venous pressure. HEART EXAMINATION: Heart S1, S2 normal. No murmur or gallop heard. CHEST EXAMINATION: Lungs are clear to auscultation and precussion. No chest wall tenderness is noted on palpation or with deep breathing. ABDOMEN: Soft, nontender. Bowel sounds are heard. No organomegaly noted. EXTREMITIES: 2+ peripheral pulses with no evidence of peripheral edema and no calf tenderness noted. NEUROLOGIC patient is awake, alert and oriented -3. - Labs CBC & Chem 7: 10/28/16 05:50 10/28/16 05:50 Labs: Abnormal Lab Results - Last 24 Hours (Table) 10/27/16 10/27/16 10/28/16 Range/Units 14:24 21:25 05:50 Plt Count 138 L (150-450) k/uL APTT 41.9 H 45.9 H (22.0-30.0) sec Creatinine (0.66-1.25) mg/dL Glucose (74-99) mg/dL 10/28/16 10/28/16 Range/Units 05:50 05:50 Plt Count (150-450) k/uL APTT 47.9 H (22.0-30.0) sec Creatinine 0.56 L (0.66-1.25) mg/dL Glucose 107 H (74-99) mg/dL Assessment and Plan Plan: Assessment and plan #1 unresponsiveness with evidence of EtOH intoxication. #2 abnormal troponins, not consistent with acute coronary syndrome, could be secondary to hypotension on arrival to [facility]. EKG shows normal sinus rhythm with no acute changes. #3 history of hypertension #4 history of EtOH abuse #5 recent arthroscopic surgery on the right knee #6 abnormal liver enzymes, likely secondary to EtOH abuse. Plan Echocardiogram with Doppler study revealed normal left ventricular systolic function. From cardiology's perspective, we will follow this patient with you now on an as-needed basis only, will set the patient up to see Dr. Alberts in the office post discharge, we also recommend outpatient stress testing once the patient is stable from EtOH perspective. DNP note has been reviewed, I agree with a documented findings and plan of care. Patient was seen and examined.
--- NOTE | 2016-10-28 17:03 | P.PN ---
Subjective Date of service 10/28/2016 Progress note being dictated for Dr. Shah. Interval history: This a 66-year-old female admitted with syncope, metabolic encephalopathy, alcohol intoxication, chest pain with elevated troponin's and multiple other medical issues. Echo reporting normal LV function, EF 60-65%. Heparin drip discontinued.Maintained on CIWA protocol. Mild improvement in shakiness today. Complains of Diarrhea. Denies chest pain, palpitations or increasing shortness of breath. Objective - Vital Signs Vital signs: Vital Signs Temp 98.5 F 10/28/16 14:54 Pulse 81 10/28/16 14:54 Resp 20 10/28/16 15:07 BP 138/76 10/28/16 14:54 Pulse Ox 98 10/28/16 14:54 Intake & Output 10/27/16 10/28/16 10/28/16 18:59 06:59 18:59 Intake Total 509.524 026.454 3270 Output Total 1100 300 250 Balance -590.476 483.241 900 Weight 100.5 kg 103.1 kg Intake: IV 600 Sodium Chloride 0.9% 1, 600 000 ml @ 75 mls/hr IV . [id number] [facility] Rx#:[id number] Intake, IV Titration 259.524 183.241 600 Amount Heparin Sodium,Porcine/ 259.524 183.241 D5w Pmx 25,000 unit In Dextrose/Water 1 500ml. bag @ 12 UNITS/KG/HR 15. 24 mls/hr IV .Q24H [facility] Rx #:[id number] Sodium Chloride 0.9% 1, 600 000 ml @ 75 mls/hr IV . [id number] [facility] Rx#:[id number] Oral 250 550 Output: Urine 1100 300 250 Other: Voiding Method Urinal Urinal Incontinent Incontinent # Bowel Movements 1 - Exam PHYSICAL EXAM: VITAL SIGNS: As above GENERAL: [Sitting Up In bed, no acute distress] HEENT: [Pupils equal conjunctiva normal. Oral mucosa moist] NECK: [Supple, no JVD] RESPIRATORY EFFORT:[ Normal] LUNGS: [Diminished, occasional scattered rhonchi, no wheezes or crackles] CARDIOVASCULAR[ regular S1-S2, no murmurs rubs or gallops, no edema] GI: [Abdomen soft, nontender, positive bowel sounds.] PSYCH: [Alert and oriented -3, mood and affect normal.] NEURO: [No focal deficits] - Labs CBC & Chem 7: 10/28/16 05:50 10/28/16 05:50 Labs: Abnormal Lab Results - Last 24 Hours (Table) 10/27/16 10/28/16 10/28/16 Range/Units 21:25 05:50 05:50 Plt Count 138 L (150-450) k/uL APTT 45.9 H (22.0-30.0) sec Creatinine 0.56 L (0.66-1.25) mg/dL Glucose 107 H (74-99) mg/dL 10/28/16 Range/Units 05:50 Plt Count (150-450) k/uL APTT 47.9 H (22.0-30.0) sec Creatinine (0.66-1.25) mg/dL Glucose (74-99) mg/dL Assessment and Plan Plan: 1. Syncope, change in mental status, acute metabolic encephalopathy. 2. [ Alcohol intoxication]. 3. [ Elevated troponins, acute non-STEMI ruled out per cardiology]. 4. [ Depression]. 5. [Hypertension]. Plan: Continue on current medication regime ,monitoring and symptomatic treatment. Maintain CIDC protocol. Cleared by cardiology for transfer off of telemetry unit to [facility], without telemetry. Discharge planning in progress for tomorrow. The impression and plan of care has been dictated as directed. : I performed a H&P examination of this patient and discussed the same with the dictator. I agree with the dictator's note. Any additional findings/opinions/ etc. will be noted.
[2016-10-28] MEDS ORDERED: BENZOCAINE 20% HEMORRHOIDAL OINT 28GM RECTAL SCH (21:00)
[2016-10-28] MEDS: NIFEdipine XL 30 MG TAB.ER.24 PO SCH (21:22)
[2016-10-28 21:42] VITALS: RESP 16
[2016-10-29] MEDS: SODIUM CHLORIDE 0.9% 1,000 ML IV SCH ×2 (01:21→17:43)
[2016-10-29] MEDS: LORazepam 2 MG/ML SYRINGE IV PRN ×2 (01:21→03:56)
[2016-10-29 07:38] VITALS: BP 171/86; PULSE 78; TEMP 98.8
[2016-10-29] MEDS: ASPIRIN 325 MG TAB PO SCH (08:28)
[2016-10-29] MEDS: LOSARTAN 50 MG TAB PO SCH (08:28)
[2016-10-29] MEDS: MULTIVITAMINS, THERA 1 EACH TAB PO SCH (08:29)
[2016-10-29] MEDS: THIAMINE 100 MG TAB PO SCH (08:29)
--- NOTE | 2016-10-29 15:19 | P.DS ---
Providers Date of admission: 10/26/16 19:27 Attending physician: Vasu Jurado Primary care physician: Benjie Bar [facility] Course: This 66-year-old gentleman was admitted with syncope. Patient also had alcohol intoxication. Treated symptomatically. Improved significantly. he'll be discharged home with further plans for monitoring. Alcohol rehab was also suggested. On exam vitals stable. Cardio S1 and S2 normal. Breath sounds equal. Abdomen soft nontender. Nervous system system and diffuse weakness. Final diagnosis 1. Syncope possibly vasovagal 2. Change in mental status possible metabolic encephalopathy 3. Alcohol intoxication 4. Elevated troponin acute IN ruled out per Cardiology 5. Depression 6. Hypertension. Patient Condition at Discharge: Fair Plan - Discharge Summary New Discharge Prescriptions: New Aspirin EC [Ecotrin Low Dose] 81 mg PO DAILY #1 tablet. Folic Acid 1 mg PO DAILY #30 tablet LORazepam [Ativan] 1 mg PO TID PRN #20 tab PRN Reason: Anxiety Omeprazole [PriLOSEC] 20 mg PO AC-BID #60 cap Continue Losartan Potassium 100 mg PO DAILY Multivit-Min/FA/Lycopen/Lutein [Centrum Silver Men Tablet] 1 tab PO DAILY Thiamine [Vitamin B-1] 100 mg PO DAILY #7 tablet NIFEdipine [Procardia Xl] 30 mg PO HS Gabapentin [Neurontin] 300 mg PO BID Discontinued Furosemide [Lasix] 20 mg PO DAILY Ibuprofen [Motrin] 800 mg PO Q4HR PRN PRN Reason: Pain Aspirin 1,300 mg PO DAILY PRN PRN Reason: Pain Discharge Medication List Losartan Potassium 100 mg PO DAILY 09/25/14 [History] Multivit-Min/FA/Lycopen/Lutein [Centrum Silver Men Tablet] 1 tab PO DAILY [History] Thiamine [Vitamin B-1] 100 mg PO DAILY #7 tablet 08/03/16 [Rx] NIFEdipine [Procardia Xl] 30 mg PO HS 08/18/16 [History] Gabapentin [Neurontin] 300 mg PO BID 10/27/16 [History] Aspirin EC [Ecotrin Low Dose] 81 mg PO DAILY #1 tablet. 10/29/16 [Rx] Folic Acid 1 mg PO DAILY #30 tablet 10/29/16 [Rx] LORazepam [Ativan] 1 mg PO TID PRN #20 tab 10/29/16 [Rx] Omeprazole [PriLOSEC] 20 mg PO AC-BID #60 cap 10/29/16 [Rx] Follow up Appointment(s)/Referral(s): Dr. DEXTER Psychiatry [Other] - 1 Week Rahul Gale MD [STAFF PHYSICIAN] - 4 Weeks (Dr. Gale's office will call patient with an appointment date and time.) Benjie Harris MD [Primary Care Provider] - 11/04/16 12:20 pm Ambulatory/Diagnostic Orders: Complete Blood Count w/diff [LAB.AMB] Time Frame: 3 Days, Location: Determined By Patient Patient Instructions/Handouts: Lorazepam (By mouth), Aspirin (By mouth), Folic Acid (By mouth), Myocardial Infarction (DC), Acute Nausea and Vomiting (DC), Hypotension (DC) Activity/Diet/Wound Care/Special Instructions: DIet: Cardiac No ETOH Activity: limited TIll F/U
== END 2016-10-29 17:50 | disposition home or self-care (01) | DRG 897 ==
LOC: EC 18:58 → SUPCPDRO 18:58 → 6SEL 19:27 → 5MS5E 10-28 18:00
PROVIDERS: ADMIT Internal Medicine; ATTEND Internal Medicine
DX: F10.229 Alcohol dependence with intoxication, unspecified (principal); F10.239 Alcohol dependence with withdrawal, unspecified; G31.2 Degeneration of nervous system due to alcohol; E87.1 Hypo-osmolality and hyponatremia; R55 Syncope and collapse; I10 Essential (primary) hypertension; M48.06 Spinal stenosis, lumbar region; S00.01XA Abrasion of scalp, initial encounter; E87.6 Hypokalemia; F32.9 Major depressive disorder, single episode, unspecified; Z79.899 Other long term (current) drug therapy; Z88.0 Allergy status to penicillin; Z88.1 Allergy status to other antibiotic agents; Z88.5 Allergy status to narcotic agent; Z88.2 Allergy status to sulfonamides
CPT/HCPCS: 36415; 71275; 80048; 80053; 80061; 80320; 82550; 82553; 83735; 84132; 84484; 84550; 85027; 85049; 85379; 85730; 87324; 93005; 93306; 94760; 96361; 96365; 96366; 96375; 96376; 99285

== ENCOUNTER 2016-11-08 18:29 | Inpatient (IN) | payer MEDICARE, OTHER ==
--- NOTE | 2016-11-08 18:55 | ED ---
General Adult HPI - General Chief complaint: Alcohol Stated complaint: ETOH Time Seen by Provider: 11/08/16 18:35 Source: patient, family, RN notes reviewed Mode of arrival: wheelchair Limitations: no limitations - History of Present Illness Initial comments: This a 66-year-old male presents emergency department for alcohol intoxication. Patient was admitted a few weeks ago for cardiac issues and alcohol abuse. Patient was The hospital for a few days for evaluation and withdrawal. Patient was discharged on medications for withdrawal symptoms so he states it was not strong enough and states that he restarted drinking a few days ago. Patient also has fallen recently and struck his face causing multiple abrasions and bruising. Patient states he does have mild headache. He states his tetanus is up-to-date. Patient is brought to emergency department by ex- stating that his drinking is getting worse at this time and she is concern for his well- being. Patient denies any chest pain or shortness breath this time denies any nausea, vomiting diarrhea constipation no fevers or chills denies any neck pain. - Related Data Home Medications Medication Instructions Recorded Confirmed Losartan Potassium 100 mg PO DAILY 09/25/14 11/08/16 Multivit-Min/FA/Lycopen/Lutein 1 tab PO DAILY 06/26/16 11/08/16 [Centrum Silver Men Tablet] NIFEdipine [Procardia Xl] 30 mg PO HS 08/18/16 11/08/16 Gabapentin [Neurontin] 300 mg PO BID 10/27/16 11/08/16 Furosemide [Lasix] 20 mg PO DAILY 11/08/16 11/08/16 Previous Rx's Medication Instructions Recorded Thiamine [Vitamin B-1] 100 mg PO DAILY #7 tablet 08/03/16 Aspirin EC [Ecotrin Low Dose] 81 mg PO DAILY #1 tablet. 10/29/16 Folic Acid 1 mg PO DAILY #30 tablet 10/29/16 LORazepam [Ativan] 1 mg PO TID PRN #20 tab 10/29/16 Omeprazole [PriLOSEC] 20 mg PO AC-BID #60 cap 10/29/16 Allergies Allergy/AdvReac Type Severity Reaction Status Date / Time acetaminophen [From Vicodin] Allergy Rash/Hives Verified 11/08/16 19:56 clindamycin Allergy Rash/Hives Verified 11/08/16 19:56 hydrocodone bitartrate Allergy Rash/Hives Verified 11/08/16 19:56 [From Vicodin] Penicillins Allergy Rash/Hives Verified 11/08/16 19:56 Sulfa (Sulfonamide Allergy Rash/Hives Verified 11/08/16 19:56 Antibiotics) Review of Systems ROS Statement: Those systems with pertinent positive or pertinent negative responses have been documented in the HPI. ROS Other: All systems not noted in ROS Statement are negative. Past Medical History Past Medical History: Hypertension Additional Past Medical History / Comment(s): HYPOGLYCEMIA,LUMBAR STENOSIS, History of Any Multi-Drug Resistant Organisms: None Reported Past Surgical History: Orthopedic Surgery Additional Past Surgical History / Comment(s): RIGHT TORN ACL, HYDROCELE Past Anesthesia/Blood Transfusion Reactions: No Reported Reaction Past Psychological History: Depression Smoking Status: Never smoker Past Alcohol Use History: Abuse, Daily, Heavy Past Drug Use History: None Reported - Past Family History Father Family Medical History: CVA/TIA Mother Family Medical History: Cancer, Deep Vein Thrombosis (DVT) General Exam Limitations: no limitations General appearance: alert, in no apparent distress Head exam: Present: atraumatic, normocephalic, normal inspection Eye exam: Present: normal appearance, PERRL, EOMI, periorbital swelling (Mild left with ecchymosis), other (Abrasions noted on the left periorbital region). Absent: scleral icterus, conjunctival injection ENT exam: Present: normal exam, normal oropharynx, mucous membranes moist Neck exam: Present: normal inspection, full ROM. Absent: tenderness, meningismus, lymphadenopathy Respiratory exam: Present: normal lung sounds bilaterally. Absent: respiratory distress, wheezes, rales, rhonchi, stridor Cardiovascular Exam: Present: regular rate, normal rhythm, normal heart sounds. Absent: systolic murmur, diastolic murmur, rubs, gallop, clicks GI/Abdominal exam: Present: soft, normal bowel sounds. Absent: distended, tenderness, guarding, rebound, rigid Neurological exam: Present: alert, oriented X3, CN II-XII intact, reflexes normal. Absent: motor sensory deficit Course Vital Signs 11/08/16 18:32 Temperature 98.9 F Pulse Rate 99 Respiratory 20 Rate Blood Pressure 140/48 O2 Sat by Pulse 98 Oximetry EKG Findings - EKG Comments: EKG Findings:: EKG performed at 19:25 normal sinus rhythm rate of 90 PA interval 160 QRS duration 92 QT/QTC 364/445 Medical Decision Making - Lab Data Result diagrams: 11/08/16 19:20 Lab Results 11/08/16 11/08/16 11/08/16 Range/Units 19:20 19:20 19:33 WBC 5.7 (3.8-10.6) k/uL RBC 4.44 (4.30-5.90) m/uL Hgb 14.1 (13.0-17.5) gm/dL Hct 41.8 (39.0-53.0) % MCV 94.1 (80.0-100.0) fL MCH 31.9 (25.0-35.0) pg MCHC 33.9 (31.0-37.0) g/dL RDW 13.9 (11.5-15.5) % Plt Count 512 H D (150-450) k/uL Neutrophils % 64 % Lymphocytes % 23 % Monocytes % 6 % Eosinophils % 2 % Basophils % 1 % Neutrophils # 3.7 (1.3-7.7) k/uL Lymphocytes # 1.3 (1.0-4.8) k/uL Monocytes # 0.3 (0-1.0) k/uL Eosinophils # 0.1 (0-0.7) k/uL Basophils # 0.1 (0-0.2) k/uL PT 9.8 (9.0-12.0) sec INR 1.0 (<1.2) Urine Color Yellow Urine Appearance Clear (Clear) Urine pH 5.5 (5.0-8.0) Ur Specific [place] 1.006 (1.001-1.035) Urine Protein Negative (Negative) Urine Glucose (UA) Negative (Negative) Urine Ketones Negative (Negative) Urine Blood Negative (Negative) Urine Nitrite Negative (Negative) Urine Bilirubin Negative (Negative) Urine Urobilinogen <2.0 (<2.0) mg/dL Ur Leukocyte Esterase Negative (Negative) Disposition Clinical Impression: Alcohol intoxication, Facial abrasion, Fall Disposition: ADMITTED IP TO THIS [facility] Condition: Fair Referrals: Constantin Dorsey MD [REFERRING] - 1-2 days
[2016-11-08 19:35] LABS: Basophils # (A) 0.1 k/uL (0-0.2); Basophils % (A) 1 %; CHCM 34.1; Eosinophils # (A) 0.1 k/uL (0-0.7); Eosinophils % (A) 2 %; HCT 41.8 % (39.0-53.0); HDW 2.28; HGB 14.1 gm/dL (13.0-17.5); Luc # (Auto) 0.21; Luc % (Auto) 4; Lymphocytes # (A) 1.3 k/uL (1.0-4.8); Lymphocytes % (A) 23 %; MCH 31.9 pg (25.0-35.0); MCHC 33.9 g/dL (31.0-37.0); MCV 94.1 fL (80.0-100.0); Mean Platelet Volume 6.9; Monocytes # (A) 0.3 k/uL (0-1.0); Monocytes % (A) 6 %; Neutrophils # (A) 3.7 k/uL (1.3-7.7); Neutrophils % (A) 64 %; RBC 4.44 m/uL (4.30-5.90); RDW 13.9 % (11.5-15.5); WBC 5.7 k/uL (3.8-10.6); WBC (Perox) 5.81
[2016-11-08 19:50] LABS: Prothrombin Time 9.8 sec (9.0-12.0)
[2016-11-08] MEDS: SODIUM CHLORIDE 0.9% 1,000 ML with POTASSIUM CHLORIDE 20 MEQ, MVI, ADULT NO.4 WITH VIT ... IV SCH ×10 (19:51)
[2016-11-08 19:54] LABS: Amylase 45 U/L (30-110); Anion Gap 17 mmol/L; Calcium 9.1 mg/dL (8.4-10.2); Carbon Dioxide 23 mmol/L (22-30); Chloride 103 mmol/L (98-107); Glucose 98 mg/dL (74-99); Non-African American GFR(MDRD) >60 (>60 ml/min/1.73 sqM); Sodium 143 mmol/L (137-145); Total Bilirubin 0.6 mg/dL (0.2-1.3)
[2016-11-08 19:59] LABS: Appearance,Urine Clear (Clear); Bilirubin,Urine Negative (Negative); Glucose,Urine (UA) Negative (Negative); Ketones,Urine Negative (Negative); Leukocyte Esterase,Urine Negative (Negative); Nitrite,Urine Negative (Negative); PH, Urine 5.5 (5.0-8.0); Protein,Urine Negative (Negative); Specific Gravity,Urine 1.006 (1.001-1.035); UA Billing (MACRO vs. MICRO) CHEM; Urobilinogen,Urine <2.0 mg/dL (<2.0)
[2016-11-08] MEDS ORDERED: 0.9% NACL WITH KCL 20 MEQ/L 1,000 ML with MVI, ADULT NO.4 WITH VIT K 10 ML, THIAMINE 10... IV ONE ×4 (20:00)
--- NOTE | 2016-11-08 20:06 | CT ---
EXAMINATION TYPE: CT brain wo con DATE OF EXAM: 11/08/2016 COMPARISON: Outside images from [place] dated 10/26/2016. HISTORY: Fall 2 days ago with multiple abrasions CT DLP: 1148.7 mGycm. Automated Exposure Control for Dose Reduction was Utilized. TECHNIQUE: CT scan of the head is performed without contrast. FINDINGS: There is no acute intracranial hemorrhage, mass effect, or midline shift identified. The ventricles and sulci are symmetrically enlarged compatible with age-related volume loss. The globes are intact and the visualized sinuses are clear. Atherosclerosis is seen of the intracranial vascula ture. Soft tissue swelling is seen over the medial canthus of the left periorbital region. IMPRESSION: 1. No acute intracranial hemorrhage, mass effect, or midline shift is seen. 2. Age-related volume loss. 3. Periorbital soft tissue swelling over the medial canthus of the left orbit.
[2016-11-08 20:19] LABS: Alcohol 399 mg/dL; Blood Urea Nitrogen 14 mg/dL (9-20); Magnesium 2.1 mg/dL (1.6-2.3); Potassium 5.8 mmol/L (3.5-5.1)
[2016-11-08 20:20] LABS: ALT 125 U/L (21-72); AST 131 U/L (17-59); Alkaline Phosphatase 96 U/L (38-126); Total Protein 6.9 g/dL (6.3-8.2)
[2016-11-08] MEDS ORDERED: NALOXONE 0.4 MG/ML 1 ML VIAL IV PRN (20:21)
[2016-11-08] MEDS ORDERED: LORazepam 2 MG/ML SYRINGE IV PRN ×4 (20:23→20:52)
[2016-11-08] MEDS ORDERED: THIAMINE 100 MG TAB PO SCH (21:00)
--- NOTE | 2016-11-08 21:33 | P.HPIM ---
History of Present Illness H&P Date: 11/08/16 Chief Complaint: Excessive EtOH drinking 66 years old gentleman with history of all call withdrawals, heavy alcohol abuse , metabolic encephalopathy from alcohol, who was brought to the ED today by his with complaints of excessive progressive drinking. He was slightly confused and forgetful in the ED. He denied nausea, vomiting, abdominal pain. He admits to drinking a fifth of vodka daily. Of note he fell a few days ago and his face had multiple bruises, CT head was obtained in the ED and was unremarkable. Alcohol level in the ED was 400. His vital signs in the ED were unremarkable otherwise. He was started on banana bag and alcohol withdrawal protocol. He was also noted to have elevated liver enzymes and elevated lipase. Decision was made to admit him to medicine for further monitoring Review of Systems Constitutional: Patient reports no fever, no chills Eyes: Patient reportsvisual changes ENT: Patient reports no rhinorrhea, no post nasal drip, no sore throat Cardiovascular: Patient reports no chest, no edema, no palpitations, no syncope , no orthopnea, no paroxysmal nocturnal dyspnea. Respiratory: Patient reports no dyspnea, no cough, no wheeze Gastrointestinal: Patient reports no nausea, no vomiting, no constipation, no diarrhea Genitourinary: Patient reports no dysuria, no urinary frequency, no hematuria. Musculoskeletal: Patient reports no unusual joint pain, no joint swelling or weakness. Patient reports no muscular pain. Psychiatric: Patient reports no changes in mood, no sleeping problems. Patient reports no changes in memory. Endocrine: Patient reports no thirst, no polyuria, no cold intolerance, no heat intolerance. Neurological: Patient reports no unusual paresthesias, no seizures, no paresis , no paralysis, no facial droop, reports headache. Heme/Lymphatic: Patient reports no easy bruising, no bleeding tendency, no lymphadenopathy. Allergic/ Immunologic: Patient reports no recent allergic reactions or immunologic history. Skin: Patient reports no rashes or unusual lesions. Past Medical History Past Medical History: Hypertension Additional Past Medical History / Comment(s): HYPOGLYCEMIA,LUMBAR STENOSIS, syncope and metabolic encephalopathy, alcohol withdrawals History of Any Multi-Drug Resistant Organisms: None Reported Past Surgical History: Orthopedic Surgery Additional Past Surgical History / Comment(s): RIGHT TORN ACL, HYDROCELE Past Anesthesia/Blood Transfusion Reactions: No Reported Reaction Past Psychological History: Depression Smoking Status: Never smoker Past Alcohol Use History: Abuse, Daily, Heavy Additional Past Alcohol Use History / Comment(s): Fifth of vodka Daily Past Drug Use History: None Reported - Past Family History Father Family Medical History: CVA/TIA Mother Family Medical History: Cancer, Deep Vein Thrombosis (DVT) Medications and Allergies Home Medications Medication Instructions Recorded Confirmed Type Losartan Potassium 100 mg PO DAILY 09/25/14 11/08/16 History Multivit-Min/FA/Lycopen/Lutein 1 tab PO DAILY 06/26/16 11/08/16 History [Centrum Silver Men Tablet] NIFEdipine [Procardia Xl] 30 mg PO HS 08/18/16 11/08/16 History Gabapentin [Neurontin] 300 mg PO BID 10/27/16 11/08/16 History Furosemide [Lasix] 20 mg PO DAILY 11/08/16 11/08/16 History Allergies Allergy/AdvReac Type Severity Reaction Status Date / Time acetaminophen [From Vicodin] Allergy Rash/Hives Verified 11/08/16 19:56 clindamycin Allergy Rash/Hives Verified 11/08/16 19:56 hydrocodone bitartrate Allergy Rash/Hives Verified 11/08/16 19:56 [From Vicodin] Penicillins Allergy Rash/Hives Verified 11/08/16 19:56 Sulfa (Sulfonamide Allergy Rash/Hives Verified 11/08/16 19:56 Antibiotics) Physical Exam Vitals: Vital Signs Temp Pulse Resp BP Pulse Ox 11/08/16 20:42 99 F 97 18 141/73 95 11/08/16 18:32 98.9 F 99 20 140/48 98 Intake and Output 11/08/16 11/08/16 11/08/16 06:59 14:59 22:59 Other: Weight 90.718 kg Patient Weight 11/09/16 06:59 Weight 90.718 kg Constitutional: No acute distress, conversant, slightly confused, AO 1-2 Eyes: moist conjunctiva, no lid-lag PERRLA, positive nystagmus ENMT: Multiple facial bruises Neck: Supple, FROM, no masses, or JVD No carotid bruits No thyromegaly Lungs: Clear to auscultation Clear to percussion Normal respiratory effort, no accessory muscle use Cardiovascular: Heart regular in rate and rhythm, No murmurs, gallops, or rubs No peripheral edema Abdominal: Soft Nontender, no guarding, rebound or rigidity Abdomen moving with respiration Normoactive bowel sounds No hepatomegaly, No splenomegaly No palpable mass No abdominal wall hernia noted Skin: Normal temperature, tone, texture, turgor No induration No subcutaneous nodules No rash, lesions No ulcers Extremities: No digital cyanosis No clubbing Pedal pulses intact and symmetrical Radial pulses intact and symmetrical Normal gait and station No calf tenderness Psychiatric: Alert and oriented to person, place and time Appropriate affect Intact judgement Neuro: Muscles Strength 5/5 in all 4 extremities Sensation to light touch grossly present throughout Cranial nerves II-XII grossly intact No focal sensory deficits Horizontal nystagmus positive Results CBC & Chem 7: 11/08/16 19:20 11/08/16 19:20 Labs: Abnormal Lab Results - Last 24 Hours (Table) 11/08/16 11/08/16 Range/Units 19:20 19:20 Plt Count 512 H D (150-450) k/uL Potassium 5.8 H (3.5-5.1) mmol/L AST 131 H (17-59) U/L ALT 125 H (21-72) U/L Lipase 382 H (23-300) U/L Thrombosis Risk Factor Assmnt - DVT/VTE Prophylaxis DVT/VTE Prophylaxis: Pharmacologic Prophylaxis ordered Assessment and Plan Plan: Assessment: -Heavy alcohol abuse, possible Wernicke's encephalopathy, history of multiple withdrawals, current alcohol intoxication Plan to admit on alcohol withdrawal protocol with as needed Ativan Banana bag is running High thiamine dose of 500 mg 3 times a day Alcohol levels in the ED is 400 as of 7 PM, expected to be sober after 14 hours [employer] worker consult for chemical dependency and placement Checking prealbumin for concerns of impaired nutrition Patient was counseled about alcohol cessation -Transaminitis, likely alcohol induced, no signs/symptoms of hepatitis Repeat in the a.m. Patient likely does have fatty liver -Hypertension, essential Continue home nifedipine and lisinopril -Elevated lipase, likely alcohol induced, no signs/symptoms of pancreatitis Serial abdominal exams -Hyperkalemia, likely hemolyzed specimen Repeat basic metabolic panel DVT prophylaxis with heparin subcu Code is full code Time with Patient: Greater than 30
[2016-11-08 22:39] LABS: Anion Gap 16 mmol/L; Blood Urea Nitrogen 13 mg/dL (9-20); Calcium 8.8 mg/dL (8.4-10.2); Carbon Dioxide 24 mmol/L (22-30); Chloride 104 mmol/L (98-107); Glucose 93 mg/dL (74-99); Non-African American GFR(MDRD) >60 (>60 ml/min/1.73 sqM); Potassium 4.5 mmol/L (3.5-5.1); Sodium 144 mmol/L (137-145)
[2016-11-09] MEDS: LORazepam 2 MG/ML SYRINGE IV PRN ×10 (01:23→22:22)
[2016-11-09 06:17] VITALS: BMI 27.8
[2016-11-09] MEDS: THIAMINE 100 MG TAB PO SCH ×3 (06:27→16:15)
[2016-11-09] MEDS: NIFEdipine XL 30 MG TAB.ER.24 PO SCH ×2 (06:27→20:19)
[2016-11-09] MEDS: HEPARIN SODIUM,PORCINE 5,000 UNIT/ML 1 ML VIAL SQ SCH ×4 (06:28→22:22)
[2016-11-09 07:51] LABS: ALT 105 U/L (21-72); AST 90 U/L (17-59); Alkaline Phosphatase 73 U/L (38-126); Anion Gap 13 mmol/L; Blood Urea Nitrogen 11 mg/dL (9-20); Calcium 8.1 mg/dL (8.4-10.2); Carbon Dioxide 25 mmol/L (22-30); Chloride 105 mmol/L (98-107); Glucose 69 mg/dL (74-99); Non-African American GFR(MDRD) >60 (>60 ml/min/1.73 sqM); Potassium 4.2 mmol/L (3.5-5.1); Sodium 143 mmol/L (137-145); Total Bilirubin 0.4 mg/dL (0.2-1.3); Total Protein 5.5 g/dL (6.3-8.2)
[2016-11-09] MEDS: PANTOPRAZOLE 40 MG TABLET PO SCH (08:28)
[2016-11-09] MEDS: LOSARTAN 50 MG TAB PO SCH (08:28)
[2016-11-09] MEDS: ASPIRIN 81 MG CHEW PO SCH (08:29)
[2016-11-09] MEDS: GABAPENTIN 300 MG CAP PO SCH ×2 (08:29→20:19)
[2016-11-09] MEDS: MULTIVITAMINS, THERA 1 EACH TAB PO SCH (12:41)
[2016-11-09] MEDS: FOLIC ACID 1 MG TAB PO SCH (12:41)
--- NOTE | 2016-11-09 19:18 | P.PN ---
Subjective Principal diagnosis: Confusion Patient is a 66-year-old male with a history of alcohol abuse and hypertension, and hypoglycemia who was brought in to his for confusion. Patient reports that he had recently been seen at the hospital and discharged home with Ativan to complete a taper for his alcohol withdrawal. Ativan was not working so he began drinking again. He was wanting to stop and therefore his brought him in for treatment. Patient does not remember coming to the hospital. In the emergency department he was found to have a slightly elevated lactic acid, elevated LFTs, an elevated platelet. He was admitted to the obs unit. He required 6 g of IV Ativan in the first hours of admission. Patient seen and examined at bedside. He does not remember coming to the hospital. He states that he was having a fidgeting, tremor, and anxiety prior to his last dose of Ativan. He is feeling much better now. He denies any nausea, vomiting, or diarrhea. He is afraid that if he is discharged home with oral Ativan again his withdrawal continue to get worse as it did the last time. Delayed charting. Patient seen at approximately 11 AM Objective - Vital Signs Vital signs: Vital Signs Temp 98.3 F 11/09/16 15:32 Pulse 91 11/09/16 16:00 Resp 18 11/09/16 16:00 BP 150/83 11/09/16 15:32 Pulse Ox 97 11/09/16 15:32 Intake & Output 11/09/16 11/09/16 11/10/16 06:59 18:59 06:59 Intake Total 960 Output Total 450 300 Balance -450 660 Weight 90.718 kg 90.718 kg Intake: Oral 960 Output: Urine 450 300 Other: Voiding Method Urinal Urinal # Voids 2 - Exam General: non toxic, mild distress, appears at stated age, discheveled Derm: no rashes, no lesions, abrasion to left eye with echymosis, abrasion to left elbow Head: atraumatic, normocephalic, symmetric Eyes: EOMI, no lid lag, anicteric sclera ENT: no post nasal drip, no thrush Mouth: no lip lesion, mucus membranes moist Cardiovascular: S1S2 reg, no murmur, positive posterior tibial pulse bilateral, Lungs: CTA bilateral, no rhonchi, no rales , no accessory muscle use Abdominal: soft, nontender to palpation, no guarding, no appreciable organomegaly Ext: no gross muscle atrophy, no edema, no contractures Neuro: CN II-XI grossly intact, no focal neuro deficits Psych: Alert, oriented, appropriate affect - Labs CBC & Chem 7: 11/08/16 19:20 11/09/16 07:15 Labs: Abnormal Lab Results - Last 24 Hours (Table) 11/08/16 11/08/16 11/09/16 Range/Units 19:20 19:20 07:15 Plt Count 512 H D (150-450) k/uL Potassium 5.8 H (3.5-5.1) mmol/L Glucose 69 L (74-99) mg/dL Calcium 8.1 L (8.4-10.2) mg/dL AST 131 H 90 H (17-59) U/L ALT 125 H 105 H (21-72) U/L Total Protein 5.5 L (6.3-8.2) g/dL Albumin 3.4 L (3.5-5.0) g/dL Lipase 382 H (23-300) U/L Assessment and Plan Plan: #Metabolic encephalopathy due to alcohol intoxication-abstinent, supportive environment #Alcohol withdrawal, failed outpatient treatment, impending DTs-continue with CIWA protocol, thiamine and folic acid replacement, IV fluids, follow mg and potassium #Hypertension, currently controlled-continue with nifedipine and losartan, follow blood pressures #history of hypoglycemia-follow a.m. fasting blood sugars, likely have been related to alcohol use #Multiple falls, related to alcohol intoxication-PT evaluation Changed to inpatient DVT prophylaxis: Heparin Discussed with: Patient, nursing, CM Anticipated discharge: 48-[address]: home vs rehab A total of 35 minutes was spent on the care of this complex patient more than 50 % of the time was spent in counseling and care coordination.
[2016-11-10] MEDS: LORazepam 2 MG/ML SYRINGE IV PRN ×6 (00:17→23:49)
[2016-11-10] MEDS: THIAMINE 100 MG TAB PO SCH ×4 (00:26→21:30)
[2016-11-10 07:26] LABS: CH 31.9; CHCM 33.6; HCT 38.2 % (39.0-53.0); HDW 2.29; HGB 12.8 gm/dL (13.0-17.5); MCHC 33.6 g/dL (31.0-37.0); MCV 95.2 fL (80.0-100.0); RBC 4.01 m/uL (4.30-5.90); RDW 13.8 % (11.5-15.5); WBC 4.4 k/uL (3.8-10.6)
[2016-11-10 07:43] LABS: ALT 89 U/L (21-72); AST 65 U/L (17-59); Alkaline Phosphatase 77 U/L (38-126); Anion Gap 8 mmol/L; Blood Urea Nitrogen 12 mg/dL (9-20); Calcium 8.4 mg/dL (8.4-10.2); Carbon Dioxide 27 mmol/L (22-30); Chloride 105 mmol/L (98-107); Glucose 81 mg/dL (74-99); Magnesium 1.6 mg/dL (1.6-2.3); Non-African American GFR(MDRD) >60 (>60 ml/min/1.73 sqM); Potassium 3.8 mmol/L (3.5-5.1); Sodium 140 mmol/L (137-145); Total Bilirubin 0.6 mg/dL (0.2-1.3); Total Protein 5.5 g/dL (6.3-8.2)
[2016-11-10] MEDS: LOSARTAN 50 MG TAB PO SCH (08:20)
[2016-11-10] MEDS: PANTOPRAZOLE 40 MG TABLET PO SCH (08:21)
[2016-11-10] MEDS: ASPIRIN 81 MG CHEW PO SCH (08:21)
[2016-11-10] MEDS: HEPARIN SODIUM,PORCINE 5,000 UNIT/ML 1 ML VIAL SQ SCH ×2 (08:21→16:07)
[2016-11-10] MEDS: GABAPENTIN 300 MG CAP PO SCH ×2 (08:21→21:29)
[2016-11-10] MEDS: FOLIC ACID 1 MG TAB PO SCH (12:27)
[2016-11-10] MEDS: MULTIVITAMINS, THERA 1 EACH TAB PO SCH (12:27)
[2016-11-10] MEDS ORDERED: ACETAMINOPHEN TAB 325 MG TAB PO PRN (14:33)
[2016-11-10] MEDS: ONDANSETRON 4 MG/2 ML VIAL IVP PRN (16:05)
--- NOTE | 2016-11-10 16:37 | P.PN ---
Subjective Principal diagnosis: Confusion Patient is a 66-year-old male with a history of alcohol abuse and hypertension, and hypoglycemia who was brought by his ex- for confusion. In the ER his alcohol level was approximately 400 and he was confused and combative. He is also found to have transaminitis and abrasions to his left orbital area and left elbow. The next morning the patient could not recall how he got to the hospital. He reports that he had recently been seen at the hospital and discharged home with Ativan to complete a taper for his alcohol withdrawal. Ativan was not working so he began drinking again. He was wanting to stop and therefore his ex- brought him in for treatment. Ie was admitted to the obs unit. He required 6 g of IV Ativan in the first hours after admission and was changed to inpatient for etoh withdrawal. Patient seen and examined at bedside. He states he was anxious this morning and not feeling well. After he received the Ativan around midnight he had feel better. He denies any tremors, anxiety, hallucinations, and nausea at this time. He is still willing to go to alcohol rehab on discharge. Delayed charting. Patient seen at approximately 1200 Objective - Vital Signs Vital signs: Vital Signs Temp 97.1 F L 11/10/16 09:00 Pulse 90 11/10/16 09:00 Resp 16 11/10/16 09:00 BP 136/71 11/10/16 09:00 Pulse Ox 95 11/10/16 09:00 Intake & Output 11/09/16 11/10/16 11/10/16 18:59 06:59 18:59 Intake Total 960 Output Total 300 1050 750 Balance 660 -1050 -750 Weight 90.718 kg 90.718 kg Intake: Oral 960 Output: Urine 300 1050 750 Other: Voiding Method Urinal Urinal Urinal # Voids 2 1 - Exam General: non toxic, no distress, appears at stated age, disheveled Derm: no rashes, no lesions, , abrasion to left elbow Head: abrasion to left eye with echymosis, normocephalic, symmetric Eyes: EOMI, no lid lag, anicteric sclera ENT: no post nasal drip, no thrush Mouth: no lip lesion, mucus membranes moist Cardiovascular: S1S2 reg, no murmur, positive posterior tibial pulse bilateral, Lungs: CTA bilateral, no rhonchi, no rales , no accessory muscle use Abdominal: soft, nontender to palpation, no guarding, no appreciable organomegaly Ext: no gross muscle atrophy, no edema, no contractures Neuro: CN II-XI grossly intact, no focal neuro deficits Psych: Alert, oriented, appropriate affect - Labs CBC & Chem 7: 11/10/16 06:24 11/10/16 06:24 Labs: Abnormal Lab Results - Last 24 Hours (Table) 11/10/16 11/10/16 Range/Units 06:24 06:24 RBC 4.01 L (4.30-5.90) m/uL Hgb 12.8 L (13.0-17.5) gm/dL Hct 38.2 L (39.0-53.0) % AST 65 H (17-59) U/L ALT 89 H (21-72) U/L Total Protein 5.5 L (6.3-8.2) g/dL Albumin 3.3 L (3.5-5.0) g/dL Assessment and Plan Plan: #Metabolic encephalopathy due to alcohol sensation,improving- cessation, treatment with Ativan, supportive environment #Alcohol withdrawal, failed outpatient treatment, impending DTs-continue with CIWA protocol, thiamine and folic acid replacement, IV fluids, follow mg and potassium # Transaminitis, improving- due to ETOH use, follow CMP #Hypertension, currently controlled-continue with nifedipine and losartan, follow blood pressures #history of hypoglycemia-follow a.m. fasting blood sugars, likely have been related to alcohol use #Multiple falls, related to alcohol intoxication-PT evaluation # Elevated lipase- ETOH indued, no clinical signs of pancreatitis. Would benefit from ETOH rehab program at discharge. DVT prophylaxis: Heparin Discussed with: Patient, nursing, SW Anticipated discharge:24-48hours Anticipated discharge place: home vs rehab A total of 35 minutes was spent on the care of this complex patient more than 50 % of the time was spent in counseling and care coordination.
[2016-11-10] MEDS: NIFEdipine XL 30 MG TAB.ER.24 PO SCH (21:31)
[2016-11-11] MEDS: HEPARIN SODIUM,PORCINE 5,000 UNIT/ML 1 ML VIAL SQ SCH ×4 (00:37→23:25)
[2016-11-11] MEDS: PANTOPRAZOLE 40 MG TABLET PO SCH (08:38)
[2016-11-11] MEDS: ASPIRIN 81 MG CHEW PO SCH (08:38)
[2016-11-11] MEDS: LOSARTAN 50 MG TAB PO SCH (08:38)
[2016-11-11] MEDS: THIAMINE 100 MG TAB PO SCH ×3 (08:38→20:53)
[2016-11-11] MEDS: GABAPENTIN 300 MG CAP PO SCH ×2 (08:38→20:53)
[2016-11-11 09:06] LABS: ALT 122 U/L (21-72); AST 104 U/L (17-59); Alkaline Phosphatase 79 U/L (38-126); Anion Gap 8 mmol/L; Blood Urea Nitrogen 9 mg/dL (9-20); Calcium 8.6 mg/dL (8.4-10.2); Carbon Dioxide 29 mmol/L (22-30); Chloride 105 mmol/L (98-107); Glucose 81 mg/dL (74-99); Non-African American GFR(MDRD) >60 (>60 ml/min/1.73 sqM); Potassium 4.2 mmol/L (3.5-5.1); Sodium 142 mmol/L (137-145); Total Bilirubin 0.4 mg/dL (0.2-1.3); Total Protein 5.8 g/dL (6.3-8.2)
[2016-11-11] MEDS: FOLIC ACID 1 MG TAB PO SCH (11:46)
[2016-11-11] MEDS: MULTIVITAMINS, THERA 1 EACH TAB PO SCH (11:46)
--- NOTE | 2016-11-11 14:33 | P.PN ---
Subjective Principal diagnosis: Confusion Patient is a 66-year-old male with a history of alcohol abuse, hypertension, and hypoglycemia who was brought by his ex- for confusion. In the ER his alcohol level was approximately 400 and he was confused and combative. He is also found to have transaminitis and abrasions to his left orbital area and left elbow. The next morning the patient could not recall how he got to the hospital. He reports that he had recently been seen at the hospital and discharged home with Ativan to complete a taper for his alcohol withdrawal. Ativan was not working so he began drinking again. He was wanting to stop and therefore his ex- brought him in for treatment. Ie was admitted to the obs unit. He required 6 g of IV Ativan in the first hours after admission and was changed to inpatient for etoh withdrawal. He continued to have withdraw necessitating the use of IV ativan. Still considering in patient detox program. Patient seen and examined at bedside. States that last night he had a lot of fidgeting, sweats, and tremors. He states he feels much better this morning. He denies chest pain, nausea, vomiting, hallucinations. He is still feeling anxious. Discussed at length the possibility of being discharged from our hospital and immediately going to inpatient alcohol detox program. He expresses wanting to go home first. I told him to start making arrangements to have someone stay with him should he go home first as this will decrease his chances of relapsing into alcohol use. Delayed charting. Patient seen at approximately 1100 Objective - Vital Signs Vital signs: Vital Signs Temp 98.0 F 11/11/16 07:00 Pulse 76 11/11/16 07:00 Resp 16 11/11/16 07:00 BP 149/86 11/11/16 07:00 Pulse Ox 93 L 11/11/16 07:00 Intake & Output 11/10/16 11/11/16 11/11/16 18:59 06:59 18:59 Intake Total 120 Output Total 1900 2500 1100 Balance -1779 -2499 -1099 Intake: Oral 120 Output: Urine 1900 2500 1100 Other: Voiding Method Urinal Urinal Urinal - Exam General: non toxic, no distress, appears at stated age, disheveled Derm: no rashes, no lesions, , abrasion to left elbow Head: abrasion to left eye with echymosis, normocephalic, symmetric Eyes: EOMI, no lid lag, anicteric sclera ENT: no post nasal drip, no thrush Mouth: no lip lesion, mucus membranes moist Cardiovascular: S1S2 reg, no murmur, positive posterior tibial pulse bilateral, Lungs: CTA bilateral, no rhonchi, no rales , no accessory muscle use Abdominal: soft, nontender to palpation, no guarding, no appreciable organomegaly Ext: no gross muscle atrophy, no edema, no contractures Neuro: CN II-XI grossly intact, no focal neuro deficits Psych: Alert, oriented, appropriate affect - Labs CBC & Chem 7: 11/10/16 06:24 11/11/16 08:13 Labs: Abnormal Lab Results - Last 24 Hours (Table) 11/11/16 Range/Units 08:13 AST 104 H (17-59) U/L ALT 122 H (21-72) U/L Total Protein 5.8 L (6.3-8.2) g/dL Albumin 3.4 L (3.5-5.0) g/dL Assessment and Plan Plan: #Metabolic encephalopathy due to alcohol sensation,improving- cessation, treatment with Ativan, supportive environment #Alcohol withdrawal, failed outpatient treatment, impending DTs-continue with CIWA protocol, thiamine and folic acid replacement, IV fluids, follow mg and potassium # Transaminitis, improving- due to ETOH use, follow CMP #Hypertension, currently controlled-continue with nifedipine and losartan, follow blood pressures #history of hypoglycemia-follow a.m. fasting blood sugars, likely has been related to alcohol use #Multiple falls, related to alcohol intoxication-PT evaluation # Elevated lipase- ETOH indued, no clinical signs of pancreatitis. Would benefit from ETOH rehab program at discharge. D/W patient again at length. DVT prophylaxis: Heparin Discussed with: Patient, nursing, case management Anticipated discharge:[address]: home vs rehab A total of 30 minutes was spent on the care of this complex patient more than 50 % of the time was spent in counseling and care coordination.
[2016-11-11] MEDS: LORazepam 2 MG/ML SYRINGE IV PRN ×2 (16:01→20:59)
[2016-11-11] MEDS: ONDANSETRON 4 MG/2 ML VIAL IVP PRN (18:35)
[2016-11-11] MEDS: NIFEdipine XL 30 MG TAB.ER.24 PO SCH (20:53)
[2016-11-12] MEDS: LORazepam 2 MG/ML SYRINGE IV PRN (01:26)
[2016-11-12] MEDS: GABAPENTIN 300 MG CAP PO SCH (07:26)
[2016-11-12] MEDS: PANTOPRAZOLE 40 MG TABLET PO SCH (07:26)
[2016-11-12] MEDS: THIAMINE 100 MG TAB PO SCH (07:26)
[2016-11-12] MEDS: ASPIRIN 81 MG CHEW PO SCH (07:26)
[2016-11-12] MEDS: HEPARIN SODIUM,PORCINE 5,000 UNIT/ML 1 ML VIAL SQ SCH (07:26)
[2016-11-12] MEDS: LOSARTAN 50 MG TAB PO SCH (07:29)
[2016-11-12 08:03] VITALS: BP 139/85; PULSE 76; RESP 16; TEMP 97.4
[2016-11-12 08:29] LABS: Anion Gap 10 mmol/L; Blood Urea Nitrogen 11 mg/dL (9-20); Calcium 9.1 mg/dL (8.4-10.2); Carbon Dioxide 27 mmol/L (22-30); Chloride 103 mmol/L (98-107); Glucose 116 mg/dL (74-99); Magnesium 1.6 mg/dL (1.6-2.3); Non-African American GFR(MDRD) >60 (>60 ml/min/1.73 sqM); Phosphorous 3.4 mg/dL (2.5-4.5); Potassium 4.1 mmol/L (3.5-5.1); Sodium 140 mmol/L (137-145)
--- NOTE | 2016-11-12 10:54 | P.DS ---
Providers Date of admission: 11/09/16 14:38 Expected date of discharge: 11/12/16 Attending physician: Rai Crump MD Consults: None Primary care physician: Benjie Harris - Discharge Diagnosis(es) (1) Alcohol intoxication Status: Acute (2) Alcohol withdrawal Status: Acute (3) Facial abrasion Status: Acute (4) Fall Status: Acute (5) Nausea Status: Acute (6) Metabolic encephalopathy Status: Acute (7) Transaminitis Status: Acute (8) HTN (hypertension) Status: Acute (9) Elevated lipase Status: Acute Hospital Course: Patient is a 66-year-old male with a history of alcohol abuse, hypertension, and hypoglycemia who was brought by his ex- for confusion. In the ER his alcohol level was approximately 400 and he was confused and combative. He is also found to have transaminitis and abrasions to his left orbital area and left elbow. The next morning the patient could not recall how he got to the hospital. He reports that he had recently been seen at the hospital and discharged home with Ativan to complete a taper for his alcohol withdrawal. Ativan was not working so he began drinking again. He was wanting to stop and therefore his ex- brought him in for treatment. He was admitted to the obs unit. He required 6 g of IV Ativan in the first hours after admission and was changed to inpatient for etoh withdrawal. He continued to have withdraw necessitating the use of IV ativan. I counseled him myself several times on being discharged to an inpatient detox program. The patient states that he needs to go home and take care of things. He is also worried about losing his job. He declines going to inpatient rehab at this time. We discussed that should he continue to drink he will go into liver failure, possible renal failure, possible dementia, and possible secondary to alcohol. Patient is aware of the risks. He has a clear plan in place for home. He is alert and oriented 3 with good decision-making capacity. We discussed what might be best for him on an outpatient basis. I discussed with him the use of Librium as this is a longer acting benzodiazepine and may have less of aware off effect than the Ativan. I have also counseled him on the fact that it makes the Librium with alcohol and result in severe somnolence and possible respiratory depression resulting in . He is aware. He would like to try Librium at home. He states that he is not going to start re- drinking. We also talked about having someone stay with him at all times to encourage sobriety. He is going to work to arrange this with his ex- and his son. His use of IV Ativan had significantly decreased. He was medically stable for discharge. I again discussed with him going to an alcohol detox program, however he continued to refuse. He remained competent to make decisions as described above. He was subsequently discharged home in stable condition. I gave him instructions that should he start to feel somnolent or confused to call his primary care physician immediately to discuss his dose of Librium or to proceed to the emergency department for evaluation. I also instructed him not to drive while using Librium. Patient seems resolute to continue to work with his alcohol counselor and AA therapy, he has every intention of not drinking again. We discussed other activities that could distract him when getting a craving. He is going to attempt to find a new hobbies and interests for himself at home. We discussed the use of possible crossword puzzles, word searches, or online games as a distraction tool during times of craving. Patient seen and examined at bedside. Denies anxiety, fidgeting, sweating, and vomiting. He feels as though he is over his alcohol withdrawal. He was concerned about Ativan use at home consisted not work. We discussed Librium at length as documented above. All questions were answered. I did offer to speak with family, however he wish to communicate with them. He does ensure me that he will continue to follow with Dr. Harris his primary care physician in [place]. General: non toxic, no distress, appears at stated age Derm: no rashes, no lesions, ecchymoses over left orbital area, left arm, with abrasions to left elbow Head: normocephalic, symmetric Eyes: EOMI, no lid lag, anicteric sclera ENT: no post nasal drip, no thrush Mouth: no lip lesion, mucus membranes moist Cardiovascular: S1S2 reg, no murmur, positive posterior tibial pulse bilateral, Lungs: CTA bilateral, no rhonchi, no rales , no accessory muscle use Abdominal: soft, nontender to palpation, no guarding, no appreciable organomegaly Ext: no gross muscle atrophy, no edema, no contractures Neuro: CN II-XI grossly intact, no focal neuro deficits Psych: Alert, oriented, appropriate affect A total of 40 minutes was spent preparing this complex discharge summary, including discussion of medications with patient, goals of care, and coordinating care. Pertinent Studies: CT brain: No acute intracranial hemorrhage, mass effect, or midline shift. Age- related volume loss. Periorbital soft tissue swelling. Procedures: None Patient Condition at Discharge: Fair Plan - Discharge Summary New Discharge Prescriptions: New chlordiazePOXIDE HCl [Librium] 10 mg PO DIRECTED #30 capsule Continue Losartan Potassium 100 mg PO DAILY Multivit-Min/FA/Lycopen/Lutein [Centrum Silver Men Tablet] 1 tab PO DAILY NIFEdipine [Procardia Xl] 30 mg PO HS Gabapentin [Neurontin] 300 mg PO BID Aspirin EC [Ecotrin Low Dose] 81 mg PO DAILY #1 tablet. Omeprazole [PriLOSEC] 20 mg PO AC-BID #60 cap Furosemide [Lasix] 20 mg PO DAILY Folic Acid 1 mg PO DAILY #14 tablet Thiamine [Vitamin B-1] 100 mg PO DAILY #14 tablet Discontinued LORazepam [Ativan] 1 mg PO TID PRN #20 tab PRN Reason: Anxiety Discharge Medication List Losartan Potassium 100 mg PO DAILY 09/25/14 [History] Multivit-Min/FA/Lycopen/Lutein [Centrum Silver Men Tablet] 1 tab PO DAILY [History] NIFEdipine [Procardia Xl] 30 mg PO HS 08/18/16 [History] Gabapentin [Neurontin] 300 mg PO BID 10/27/16 [History] Aspirin EC [Ecotrin Low Dose] 81 mg PO DAILY #1 tablet. 10/29/16 [Rx] Omeprazole [PriLOSEC] 20 mg PO AC-BID #60 cap 10/29/16 [Rx] Furosemide [Lasix] 20 mg PO DAILY 11/08/16 [History] Folic Acid 1 mg PO DAILY #14 tablet 11/12/16 [Rx] Thiamine [Vitamin B-1] 100 mg PO DAILY #14 tablet 11/12/16 [Rx] chlordiazePOXIDE HCl [Librium] 10 mg PO DIRECTED #30 capsule 11/12/16 [Rx] Follow up Appointment(s)/Referral(s): Benjie Harris MD [Primary Care Provider] - 11/19/16 1:00 pm Patient Instructions/Handouts: Abuse of Alcohol (DC) Activity/Diet/Wound Care/Special Instructions: Regular diet Activity as tolerated Do not drink alcohol and take librium this can lead to sedation, respiratory depression, and Discharge Disposition: HOME SELF-CARE
[2016-11-12] MEDS: FOLIC ACID 1 MG TAB PO SCH (12:03)
[2016-11-12] MEDS: MULTIVITAMINS, THERA 1 EACH TAB PO SCH (12:03)
== END 2016-11-12 14:37 | disposition home or self-care (01) | DRG 896 ==
LOC: EC 18:29 → 3OBS 20:23 → OBSVTOIN 11-09 14:38 → 4MS4W 11-10 08:55
PROVIDERS: ADMIT Internal Medicine; ATTEND Internal Medicine
DX: F10.229 Alcohol dependence with intoxication, unspecified (principal); G93.41 Metabolic encephalopathy; F10.239 Alcohol dependence with withdrawal, unspecified; E87.5 Hyperkalemia; F32.9 Major depressive disorder, single episode, unspecified; I10 Essential (primary) hypertension; K76.0 Fatty (change of) liver, not elsewhere classified; S00.81XA Abrasion of other part of head, initial encounter; F41.9 Anxiety disorder, unspecified; R74.0 Nonspecific elevation of levels of transaminase and lactic acid dehydrogenase [LDH]; T51.0X1A Toxic effect of ethanol, accidental (unintentional), initial encounter; S50.312A Abrasion of left elbow, initial encounter; Y92.9 Unspecified place or not applicable; Z79.899 Other long term (current) drug therapy; Z79.82 Long term (current) use of aspirin; Z88.6 Allergy status to analgesic agent; Z88.1 Allergy status to other antibiotic agents; Z88.5 Allergy status to narcotic agent; Z88.0 Allergy status to penicillin; Z88.2 Allergy status to sulfonamides; W19.XXXA Unspecified fall, initial encounter
CPT/HCPCS: 36415; 70450; 80048; 80053; 80320; 81003; 82150; 83690; 83735; 84100; 84134; 84484; 85025; 85027; 85610; 93005; 96365; 99285

== ENCOUNTER → 2016-11-17 | Outpatient (CLI) | payer MEDICARE, OTHER ==
[2016-11-17 17:47] LABS: Basophils # (A) 0.1 k/uL (0-0.2); Basophils % (A) 1 %; CH 31.4; CHCM 33.2; Eosinophils # (A) 0.1 k/uL (0-0.7); Eosinophils % (A) 2 %; HCT 38.5 % (39.0-53.0); HDW 2.54; HGB 13.2 gm/dL (13.0-17.5); Luc # (Auto) 0.19; Luc % (Auto) 4; Lymphocytes # (A) 0.9 k/uL (1.0-4.8); Lymphocytes % (A) 19 %; MCH 32.4 pg (25.0-35.0); MCHC 34.2 g/dL (31.0-37.0); MCV 94.7 fL (80.0-100.0); Mean Platelet Volume 7.4; Monocytes # (A) 0.6 k/uL (0-1.0); Monocytes % (A) 11 %; Neutrophils # (A) 3.2 k/uL (1.3-7.7); Neutrophils % (A) 63 %; RBC 4.06 m/uL (4.30-5.90); RDW 13.9 % (11.5-15.5); WBC (Perox) 5.07
[2016-11-17 17:51] LABS: Anion Gap 9 mmol/L; Blood Urea Nitrogen 23 mg/dL (9-20); Calcium 9.1 mg/dL (8.4-10.2); Carbon Dioxide 27 mmol/L (22-30); Chloride 107 mmol/L (98-107); Glucose 102 mg/dL (74-99); Non-African American GFR(MDRD) >60 (>60 ml/min/1.73 sqM); Potassium 4.5 mmol/L (3.5-5.1); Sodium 143 mmol/L (137-145)
== END | disposition home or self-care (01) ==
LOC: LABWHC1 16:19
PROVIDERS: ATTEND Nurse Practitioner
DX: R55 Syncope and collapse (principal); F10.129 Alcohol abuse with intoxication, unspecified
CPT/HCPCS: 36415; 80048; 85025

== ENCOUNTER → 2017-11-01 | Outpatient (CLI) | payer MEDICARE, OTHER ==
[2017-11-01 11:16] LABS: Basophils % (A) 1 %; Eosinophils # (A) 0.3 k/uL (0-0.7); Eosinophils % (A) 5 %; HCT 43.7 % (39.0-53.0); HGB 14.7 gm/dL (13.0-17.5); Lymphocytes # (A) 1.4 k/uL (1.0-4.8); Lymphocytes % (A) 24 %; MCHC 33.6 g/dL (31.0-37.0); MCV 89.4 fL (80.0-100.0); Mean Platelet Volume 7.4; Monocytes # (A) 0.4 k/uL (0-1.0); Monocytes % (A) 7 %; Neutrophils # (A) 3.6 k/uL (1.3-7.7); Neutrophils % (A) 61 %; Platelet Count 246 k/uL (150-450); RBC 4.89 m/uL (4.30-5.90); RDW 13.1 % (11.5-15.5); WBC 5.8 k/uL (3.8-10.6)
[2017-11-01 11:34] LABS: Potassium 4.3 mmol/L (3.5-5.1)
[2017-11-01 11:42] LABS: INR 1.1 (<1.2); Partial Thromboplastin Time 24.9 sec (22.0-30.0); Prothrombin Time 10.5 sec (9.0-12.0)
== END | disposition home or self-care (01) ==
LOC: LABPAT 10:17
PROVIDERS: ATTEND Orthopaedic Surgery
DX: Z01.812 Encounter for preprocedural laboratory examination (principal); M16.12 Unilateral primary osteoarthritis, left hip; Z79.01 Long term (current) use of anticoagulants
CPT/HCPCS: 36415; 80051; 85025; 85610; 85730; 87070

== ENCOUNTER 2017-11-08 06:01 | Inpatient (IN) | payer MEDICARE, OTHER ==
[2017-11-02 14:32] VITALS: BMI 34.7
--- NOTE | 2017-11-07 10:59 | HP ---
HISTORY AND PHYSICAL REASON FOR ADMISSION: Surgery scheduled for 11/08/2017 Victoriano Cha is a 67-year-old patient seen with symptomatic left hip osteoarthritis. After having treatment options discussed, he elected to proceed with direct anterior left total hip arthroplasty. Consent regarding the procedure was obtained. Medical clearance was provided by Mike ALMODOVAR. PAST MEDICAL HISTORY: Hypertension. PAST SURGICAL HISTORY: Right knee arthroscopy. DAILY MEDICATIONS: Gabapentin, Lasix, losartan, aspirin. ALLERGIES: SULFA, VICODIN, PENICILLIN. SOCIAL HISTORY: The patient denies tobacco use/ PHYSICAL EXAMINATION: Physical evaluation of the left hip, there is limited range of motion with severe pain. Positive hip impingement sign. Straight leg raise negative, about 0.25 inch shortening left lower extremity compared to right. Distal neurovascular exam is intact. RADIOGRAPHS: Radiographs of the left hip reveal severe osteoarthritic changes. IMPRESSION: 1. Left hip osteoarthritis. 2. Hypertension. PLAN: Direct anterior left total hip arthroplasty. Surgery is 11/08/2017. MMODL / IJN: [id number] /
[~2017-11-08 06:01] MED LIST changes: +ACETAMINOPHEN TAB 500 MG TAB PO ONE; -HYDROmorphone 1 MG/ML 1 ML SYRINGE IVP PRN; -LACTATED RINGERS 1,000 ML IV SCH; +MELOXICAM 7.5 MG TAB PO ONE; +MIDAZOLAM 2 MG/2 ML VIAL IV PRN; +TRANEXAMIC ACID 1,000 MG in SODIUM CHLORIDE 0.9% 50 ML IVPB ONE; -ceFAZolin 2 GM in SODIUM CHLORIDE 0.9% 100 ML IVPB ONE; +ceFAZolin IN SWFI 2 GM/20 ML SYRINGE IVP ONE; +fentaNYL (PF) 50 MCG/ML 2 ML AMP IV PRN
[2017-11-08] MEDS ORDERED: LIDOCAINE 1% 20 ML VIAL (10MG/ML) FOR IV START INTRADERMA ONE (06:55)
[2017-11-08] MEDS: LACTATED RINGERS 1,000 ML IV SCH (06:55)
[2017-11-08 06:57] LABS: Glucose,Whole Blood 99 mg/dL (75-99)
[2017-11-08] MEDS ORDERED: MIDAZOLAM 2 MG/2 ML VIAL ONE (07:28)
[2017-11-08] MEDS ORDERED: SODIUM CHLORIDE 0.9% 100 ML BAG ONE (07:28)
[2017-11-08] MEDS ORDERED: PROPOFOL 10 MG/ML 20 ML VIAL IV ONE (07:28)
[2017-11-08] MEDS ORDERED: TRANEXAMIC ACID 1,000 MG/10 ML VIAL ONE (07:28)
[2017-11-08] MEDS ORDERED: ePHEDrine SULFATE/0.9% NACL/PF 50 MG/5 ML SYRINGE IV ONE (07:28)
[2017-11-08] MEDS ORDERED: fentaNYL (PF) 50 MCG/ML 2 ML AMP ONE (07:28)
[2017-11-08] MEDS ORDERED: ceFAZolin 3,000 MG in SODIUM CHLORIDE 0.9% IRRIGATIO 3,000 ML IRRIGATION ONE (08:12)
[2017-11-08] MEDS ORDERED: ROPIVACAINE 246.25 MG, EPINEPHrine 0.5 MG, KETOROLAC 30 MG, cloNIDine HCL/PF 80 MCG, WA... MISCELLANE ONE ×5 (08:45)
[2017-11-08] MEDS ORDERED: LACTATED RINGERS 1,000 ML IV ONE (09:19)
--- NOTE | 2017-11-08 09:36 | P.OP ---
Date of Procedure: 11/08/17 Preoperative Diagnosis: Left hip osteoarthritis Postoperative Diagnosis: Left hip osteoarthritis Procedure(s) Performed: Direct anterior left total hip arthroplasty Implants: 1. Depuy Corail KA size 12 standard collar press-fit femoral stem 2. Depuy pinnacle 58 mm multi hole press-fit acetabular shell 3. Depuy pinnacle polyethylene acetabular liner neutral 36 mm ID 58 mm OD 4. Biolox delta ceramic femoral head +5 36 mm Anesthesia: local, spinal Surgeon: Calixto Hardwick Metal Machinist #1: Dmitry Solorio Estimated Blood Loss (ml): 200 Pathology: other (Femoral head) Condition: stable Disposition: PACU Indications for Procedure: 67-year-old patient seen with symptomatic left hip osteoarthritis. After treatment options were discussed, he elected to proceed with total hip arthroplasty. Operative Findings: See description of procedure Description of Procedure: The patient was taken to the operative suite. Patient underwent a spinal anesthetic by the department of anesthesia. Patient was then transferred to the [place] table. Patient was given preoperative IV antibiotics and TXA. Both lower extremities were placed in standard leg spars. The hip was then prepped and draped in the normal sterile orthopedic fashion. A standard anterior incision was made beginning 3 cm lateral and 1 cm distal to the ASIS extending 10 cm. Dissection was then carried down through the subcutaneous soft tissues down to the fascia overlying the tensor fascia aurora. An incision was now made through the fascia. Careful dissection was taken down exposing the tensor fascia aurora muscle. A Cobra retractor was now placed along the medial femoral neck and a second one along the lateral femoral neck. The venous circumflex vessels were now identified, cauterized and clipped. We identified the anterior hip capsule. An incision was made through the hip capsule along the lateral border. I performed a partial anterior capsulectomy. Retractors were now placed around the femoral neck itself. A femoral neck cut was now made with a sagittal saw. It was completed with an osteotome at the lateral neck area. The femoral head was now removed without difficulty. The extremity was now rotated to 45 of external rotation. It was locked in position. Residual labrum was now debrided out. Serial reaming was performed of the acetabulum while Todd ALMODOVAR assisted holding an anterior retractor for exposure. Once we reached the appropriate size and a trial was position and fit nicely. I did note some loss of the anterior wall. The appropriate size was now chosen opened and made available. I did choose a multi hole cup the anterior acetabular bone loss. It was introduced into the acetabulum without difficulty. The C-arm/ fluoroscopy was now brought into the operative field. We made sure we had a true AP pelvic view. We now under direct C-arm/fluoroscopy introduced into the acetabular component with appropriate version and inclination. I held the cup in appropriate position while Todd ALMODOVAR used a mallet to seat the acetabular component. I noted the component now to be well seated but I did not feel that it was completely stable at this point. I now introduced multiple screws with excellent bite and purchase. We had a total of 4 screws with all good fixation. The C-arm was pulled back. An appropriate liner was introduced and clicked into position. It was felt to be stable. At this point retractors were removed. The extremity was now placed into 120 external rotation with no traction. The leg was now dropped to the ground and adducted. Appropriate retractors were now positioned along the proximal femur. We also placed our femoral look into position. Additional capsular releasing was performed to gain access to the proximal femur. We now used a box osteotome. A canal finder was now utilized. Serial broaching was now performed with the assistance of Todd ALMODOVAR tapping the broaches down with a mallet while held the broach in appropriate rotation and position. This was done until we reached the appropriate size with good overall rotational stability. Appropriate calcar planing was performed. A trial head/neck was placed into position. The hip was now reduced. The C-arm/fluoroscopy was brought back into the operative field. A spot film was obtained of the nonoperative hip. A spot film was obtained of the trial components. Overlays were performed, we noted good overall alignment and positioning for determining leg length. The C- arm/fluoroscopy was pulled back. Retractors were repositioned and the hip was dislocated. The leg was again taken down to the ground and adducted. Appropriate retractors were repositioned as well as the femoral hook. All trial components were removed. The femoral implant was opened along with the femoral head. The femoral implant was introduced on the appropriate handle into our pre-broached area. I held the component position well Todd ALMODOVAR used a mallet to seat the femoral component. The femoral component was now noted to be well seated and stable.. The femoral head was introduced with good positioning and fixation noted. Retractors were now removed. The hip was now reduced. There appeared be good positioning of the hip confirmed on intraoperative fluoroscopy. Spot films were obtained to document this. A second gram of TXA was given. The deep and superficial soft tissues were infiltrated with local analgesic. Bipolar cautery had been utilized intermittently through the procedure for hemostasis. The wound was irrigated copiously with pulse lavage mechanical irrigation. The fascia was repaired with Vicryl suture. The subcutaneous soft tissues were repaired in layers with Vicryl suture. The skin was approximated with pernio/Dermabond. Sterile dressings were applied. Patient was then awakened, transferred to a bed and taken to recovery in stable condition. Todd ALMODOVAR assisted with the complex procedure.
[2017-11-08] MEDS ORDERED: NALOXONE 0.4 MG/ML 1 ML VIAL IV PRN (09:37)
[2017-11-08] MEDS ORDERED: HYDROmorphone 1 MG/ML 1 ML SYRINGE IVP PRN ×2 (09:37)
[2017-11-08] MEDS ORDERED: HYDROcodone/APAP 7.5-325MG 1 EACH TAB PO PRN ×2 (09:37)
[2017-11-08] MEDS ORDERED: ONDANSETRON 4 MG/2 ML VIAL IVP PRN (09:37)
--- NOTE | 2017-11-08 11:32 | FL ---
Fluoroscopy HISTORY: Anterior hip replacement 15 seconds fluoroscopy time supplied to the referring clinician. 1 intraoperative C-arm images docum ent the procedure. See dictated report from orthopedic surgery.
--- NOTE | 2017-11-08 11:33 | XR ---
Limited left hip HISTORY: Hip replacement Single intraoperative C-arm image documents the procedure.
[2017-11-08] MEDS ORDERED: FLUTICASONE 50MCG/SPRAY NASAL 16GM EA NOSTRIL PRN (11:49)
[2017-11-08] MEDS ORDERED: GABAPENTIN 300 MG CAP PO PRN (11:49)
--- NOTE | 2017-11-08 11:49 | P.CONS ---
History of Present Illness - Reason for Consult Consult date: 11/08/17 Consult from management of hypertension and GERD Requesting physician: Calixto Hardwick - Chief Complaint Consult for medical management - History of Present Illness The patient is a 67-year-old obese male with a past medical history of chronic alcoholism, history of alcohol withdrawal with related encephalopathy and history of essential hypertension who is admitted to orthopedic service under Dr. Hardwick and is currently postop after having a left total hip arthroplasty secondary to severe left hip osteoarthritis, the patient has been doing well postop, does complain of a mild ache in his left hip with some numbness and tingling of his left thigh. He otherwise he has no complaints, the patient does report a history as mentioned of hypertension that has been recently a difficult to control, he currently denies any chest pain focal weakness slurred speech or shortness of breath. The patient did report taking his normal antihypertensive regimen this morning, but did not take his Lasix which she reports is prescribed for hypertension and lower extremity edema as he denies any history of heart failure. he denies any lighheadedness or dizziness Review of the records indicates the patient is currently hypertensive with a blood pressure of 171/89, HR 49 - 52 Review of Systems Pertinent positives and negatives as discussed in HPI, a complete review of systems was performed and all other systems are negative. Past Medical History Past Medical History: Hypertension, Osteoarthritis (OA), Sleep Apnea/CPAP/BIPAP Additional Past Medical History / Comment(s): states get very hypoglycemic, LUMBAR STENOSIS, states hx of elevated cardiac enzymes, History of Any Multi-Drug Resistant Organisms: None Reported Past Surgical History: Orthopedic Surgery Additional Past Surgical History / Comment(s): RIGHT TORN ACL, left HYDROCELE Past Anesthesia/Blood Transfusion Reactions: No Reported Reaction Past Psychological History: Depression Smoking Status: Never smoker Past Alcohol Use History: None Reported, Abuse Additional Past Alcohol Use History / Comment(s): past hx of abuse, none for one year Past Drug Use History: None Reported - Past Family History Father Family Medical History: CVA/TIA Mother Family Medical History: Cancer, Deep Vein Thrombosis (DVT) Medications and Allergies Home Medications Medication Instructions Recorded Confirmed Type Losartan Potassium 100 mg PO QAM 09/25/14 11/08/17 History Multivit-Min/FA/Lycopen/Lutein 1 tab PO DAILY 06/26/16 11/08/17 History [Centrum Silver Men Tablet] Gabapentin [Neurontin] 300 mg PO TID PRN 10/27/16 11/08/17 History Furosemide [Lasix] 20 mg PO QAM 11/08/16 11/08/17 History Folic Acid 1 mg PO DAILY #14 tablet 11/12/16 11/08/17 Rx Thiamine [Vitamin B-1] 100 mg PO DAILY #14 tablet 11/12/16 11/08/17 Rx Acetaminophen Tab [Tylenol] 325 - 650 mg PO Q4H PRN 11/02/17 11/08/17 History Aspirin 325 mg PO DAILY 11/02/17 11/08/17 History Carvedilol [Coreg] 12.5 mg PO BID 11/02/17 11/08/17 History Fluticasone Nasal [place] [Flonase 2 spr EA NOSTRIL DAILY PRN 11/02/17 11/08/17 History Nasal [place]] Naltrexone HCl [Revia] 50 mg PO DAILY 11/02/17 11/08/17 History Ubidecarenone [Co Q-10] 100 mg PO DAILY 11/02/17 11/08/17 History traZODone HCL [Desyrel] 100 mg PO HS 11/02/17 11/08/17 History Turmeric Root Extract [Turmeric] 500 mg PO DAILY 11/08/17 11/08/17 History Allergies Allergy/AdvReac Type Severity Reaction Status Date / Time clindamycin Allergy Rash/Hives Verified 11/08/17 11:03 hydrocodone bitartrate Allergy Rash/Hives Verified 11/08/17 11:03 [From Vicodin] Penicillins Allergy Rash/Hives Verified 11/08/17 11:03 Sulfa (Sulfonamide Allergy Rash/Hives Verified 11/08/17 11:03 Antibiotics) Physical Exam Vitals: Vital Signs Temp Pulse Pulse Resp BP BP Pulse Ox 11/08/17 10:21 51 L 16 140/69 93 L 11/08/17 10:06 49 L 16 142/69 94 L 11/08/17 09:51 98 F 52 L 16 147/73 97 11/08/17 06:14 98.3 F 69 16 159/77 96 Intake and Output 11/07/17 11/08/17 11/08/17 22:59 06:59 14:59 Intake Total 100 1001 Output Total 200 Balance 100 801 Intake: IV 100 1001 Output: Estimated Blood Loss 200 Other: Weight 109.769 kg Constitutional: No acute distress, conversant, pleasant Eyes: Anicteric sclerae, moist conjunctiva, no lid-lag, PERRLA ENMT: NC/AT,Oropharynx clear, no erythema, exudates Neck:Supple, FROM, no masses, or JVD, No carotid bruits; No thyromegaly Lungs: Clear to auscultation, Clear to percussion, Normal respiratory effort, no accessory muscle use Cardiovascular: Bradycardic regular rhythm, No murmurs, gallops, or rubs +1 peripheral edema Abdominal: Soft Nontender, nom distended, no guarding, no rebound or rigidity, Normoactive bowel sounds No hepatomegaly, No splenomegaly, No palpable mass No abdominal wall hernia noted Skin: Normal temperature, tone, texture, turgor, No induration No subcutaneous nodules, No rash, lesions, No ulcers Extremities:No digital cyanosis No clubbing, Pedal pulses intact and symmetrical Radial pulses intact and symmetrical Normal gait and station, No calf tenderness Psychiatric: Alert and oriented to person, place and time, Appropriate affect Intact judgement Neuro: Muscles Strength 5/5 in all 4 extremities, Sensation to light touch grossly present throughout, Cranial nerves II-XII grossly intact. No focal sensory deficits Assessment and Plan (1) Uncontrolled hypertension Current Visit: Yes Status: Acute Code(s): I10 - ESSENTIAL (PRIMARY) HYPERTENSION SNOMED Code(s): 19641185 (2) GERD (gastroesophageal reflux disease) Current Visit: Yes Status: Acute Code(s): K21.9 - GASTRO-ESOPHAGEAL REFLUX DISEASE WITHOUT ESOPHAGITIS SNOMED Code(s): 774112252 (3) Bradycardia Current Visit: Yes Status: Acute Code(s): R00.1 - BRADYCARDIA, UNSPECIFIED SNOMED Code(s): 69180490 Plan: The patient is admitted to orthopedic service and is postop day #0 status post left total hip arthroplasty secondary to severe left hip osteoarthritis, will plan to defer perioperative care including anticoagulation for DVT prophylaxis and analgesic therapy to the primary team. With regards to his pressure is currently elevated and uncontrolled we'll add spironolactone 25 mg by mouth twice a day to his regimen and continue to monitor. His other home hypertensive regimen along with his chronic medications has been restarted. The patient is noted to be bradycardic but is asymptomatic. We'll continue to follow this patient with you I appreciate opportunity to be involved ongoing care of this patient. For any further questions or concerns please do not hesitate to contact the [facility] inpatient team
[2017-11-08] MEDS: HYDROmorphone 1 MG/ML 1 ML SYRINGE IVP PRN ×2 (11:53→17:34)
[2017-11-08] MEDS ORDERED: SPIRONOLACTONE 25 MG TAB PO STA (11:55)
[2017-11-08] MEDS: traMADol 50 MG TAB PO SCH ×3 (12:08→21:11)
[2017-11-08] MEDS: ceFAZolin IN SWFI 2 GM/20 ML SYRINGE IVP SCH ×2 (15:41→23:52)
[2017-11-08] MEDS ORDERED: traZODone HCL 100 MG TAB PO SCH (21:00)
[2017-11-08] MEDS ORDERED: SENNOSIDES-DOCUSATE SODIUM 1 EACH TAB PO SCH (21:00)
[2017-11-08] MEDS: SPIRONOLACTONE 25 MG TAB PO SCH ×2 (21:11→21:34)
[2017-11-08] MEDS: CARVEDILOL 12.5 MG TAB PO SCH (21:12)
[2017-11-09 01:41] VITALS: RESP 16
[2017-11-09] MEDS: ACETAMINOPHEN TAB 325 MG TAB PO PRN ×3 (04:33→17:06)
[2017-11-09] MEDS: LACTATED RINGERS 1,000 ML IV SCH (05:15)
[2017-11-09 07:11] LABS: Basophils % (A) 0 %; Eosinophils % (A) 0 %; HCT 35.7 % (39.0-53.0); Lymphocytes # (A) 1.5 k/uL (1.0-4.8); Lymphocytes % (A) 18 %; MCH 30.8 pg (25.0-35.0); MCHC 33.6 g/dL (31.0-37.0); MCV 91.5 fL (80.0-100.0); Mean Platelet Volume 7.6; Monocytes # (A) 0.8 k/uL (0-1.0); Monocytes % (A) 9 %; Neutrophils # (A) 5.6 k/uL (1.3-7.7); Neutrophils % (A) 70 %; Platelet Count 197 k/uL (150-450); RDW 13.2 % (11.5-15.5); WBC 8.1 k/uL (3.8-10.6)
[2017-11-09 07:40] VITALS: BP 134/60; PULSE 73; TEMP 98.6
[2017-11-09 07:40] LABS: ALT 32 U/L (21-72); AST 29 U/L (17-59); Albumin 2.9 g/dL (3.5-5.0); Alkaline Phosphatase 54 U/L (38-126); Anion Gap 5 mmol/L; Blood Urea Nitrogen 21 mg/dL (9-20); Calcium 8.2 mg/dL (8.4-10.2); Carbon Dioxide 30 mmol/L (22-30); Chloride 104 mmol/L (98-107); Glucose 106 mg/dL (74-99); Potassium 3.8 mmol/L (3.5-5.1); Sodium 139 mmol/L (137-145); Total Bilirubin 0.4 mg/dL (0.2-1.3)
[2017-11-09] MEDS: traMADol 50 MG TAB PO SCH ×3 (07:51→17:00)
[2017-11-09] MEDS: CARVEDILOL 12.5 MG TAB PO SCH (07:52)
[2017-11-09] MEDS: SPIRONOLACTONE 25 MG TAB PO SCH (07:56)
[2017-11-09] MEDS ORDERED: MELOXICAM 7.5 MG TAB PO SCH (09:00)
[2017-11-09] MEDS ORDERED: FUROSEMIDE 20 MG TAB PO SCH (09:00)
[2017-11-09] MEDS ORDERED: ASPIRIN 325 MG TAB PO SCH (09:00)
[2017-11-09] MEDS ORDERED: LOSARTAN 50 MG TAB PO SCH (09:00)
[2017-11-09] MEDS ORDERED: FAMOTIDINE 20 MG TAB PO SCH (09:00)
[2017-11-09] MEDS ORDERED: ENOXAPARIN 40 MG/0.4 ML SYRINGE SQ SCH (09:00)
[2017-11-09] MEDS ORDERED: THIAMINE 100 MG TAB PO SCH (09:00)
--- NOTE | 2017-11-09 09:46 | P.PN ---
Subjective Progress Note Date: 11/09/17 Patient doing well postop day #1 status post total left hip arthroplasty secondary to severe osteoarthritis, reports his pain is adequately controlled, has been ambulatory recently cleared by PT for discharge Objective - Vital Signs Vital signs: Vital Signs Temp 98.6 F 11/09/17 07:38 Pulse 73 11/09/17 07:38 Resp 16 11/09/17 07:38 BP 134/60 11/09/17 07:38 Pulse Ox 96 11/09/17 07:38 Intake & Output 11/08/17 11/09/17 11/09/17 18:59 06:59 18:59 Intake Total 1001 40 420 Output Total 800 100 Balance 201 -60 420 Weight 109.769 kg Intake: IV 1001 Intake, IV Titration 40 Amount Lactated Ringers 1,000 ml 40 @ 20 mls/hr IV .Q24H RAYMOND Rx#:[id number] Oral 420 Output: Urine 600 100 Estimated Blood Loss 200 Other: Voiding Method Urinal Toilet Urinal # Voids 1 1 - Exam Constitutional: No acute distress, conversant, pleasant Eyes: Anicteric sclerae, moist conjunctiva, no lid-lag, PERRLA ENMT: NC/AT,Oropharynx clear, no erythema, exudates Neck:Supple, FROM, no masses, or JVD, No carotid bruits; No thyromegaly Lungs: Clear to auscultation, Clear to percussion, Normal respiratory effort, no accessory muscle use Cardiovascular: Heart regular in rate and rhythm, No murmurs, gallops, or rubs no peripheral edema Abdominal: Soft Nontender, nom distended, no guarding, no rebound or rigidity, Normoactive bowel sounds No hepatomegaly, No splenomegaly, No palpable mass No abdominal wall hernia noted Skin: Normal temperature, tone, texture, turgor, No induration No subcutaneous nodules, No rash, lesions, No ulcers Extremities:No digital cyanosis No clubbing, Pedal pulses intact and symmetrical Radial pulses intact and symmetrical Normal gait and station, No calf tenderness Psychiatric: Alert and oriented to person, place and time, Appropriate affect Intact judgement Neuro: Muscles Strength 5/5 in all 4 extremities, Sensation to light touch grossly present throughout, Cranial nerves II-XII grossly intact. No focal sensory deficits - Labs CBC & Chem 7: 11/09/17 06:45 11/09/17 06:45 Labs: Abnormal Lab Results - Last 24 Hours (Table) 11/09/17 11/09/17 Range/Units 06:45 06:45 RBC 3.90 L (4.30-5.90) m/uL Hgb 12.0 L (13.0-17.5) gm/dL Hct 35.7 L (39.0-53.0) % BUN 21 H (9-20) mg/dL Glucose 106 H (74-99) mg/dL Calcium 8.2 L (8.4-10.2) mg/dL Total Protein 5.0 L (6.3-8.2) g/dL Albumin 2.9 L (3.5-5.0) g/dL Assessment and Plan (1) Uncontrolled hypertension Narrative/Plan: * Patient's blood pressure is now improved and is controlled * Continue with current regimen Coreg, Lasix, losartan and spironolactone Current Visit: Yes Status: Resolved Code(s): I10 - ESSENTIAL (PRIMARY) HYPERTENSION SNOMED Code(s): 41097280 (2) GERD (gastroesophageal reflux disease) Narrative/Plan: * Continue with Pepcid Current Visit: Yes Status: Acute Code(s): K21.9 - GASTRO-ESOPHAGEAL REFLUX DISEASE WITHOUT ESOPHAGITIS SNOMED Code(s): 145701953 (3) Bradycardia Narrative/Plan: * Resolved Current Visit: Yes Status: Acute Code(s): R00.1 - BRADYCARDIA, UNSPECIFIED SNOMED Code(s): 62657057 Plan: Patient stable for discharge, will be scribe new prescription for Aldactone
--- NOTE | 2017-11-09 10:53 | P.PN ---
Subjective Progress Note Date: 11/09/17 Principal diagnosis: Status post left total hip arthroplasty Patient is examined at bedside today, he is doing well. He is ambulating with therapy. Pain is well-controlled. He denies any headaches, lightheadedness, chest pain or shortness of breath. Objective - Vital Signs Vital signs: Vital Signs Temp 98.6 F 11/09/17 07:38 Pulse 73 11/09/17 07:38 Resp 16 11/09/17 07:38 BP 134/60 11/09/17 07:38 Pulse Ox 96 11/09/17 07:38 Intake & Output 11/08/17 11/09/17 11/09/17 18:59 06:59 18:59 Intake Total 1001 40 420 Output Total 800 100 Balance 201 -60 420 Weight 109.769 kg Intake: IV 1001 Intake, IV Titration 40 Amount Lactated Ringers 1,000 ml 40 @ 20 mls/hr IV .Q24H R[facility]MON[facility] Rx#:[id number] Oral 420 Output: Urine 600 100 Estimated Blood Loss 200 Other: Voiding Method Urinal Toilet Urinal # Voids 1 1 - Exam Left lower extremity: Incision is clean, dry, and intact. The prineo tape is in good condition. There is minimal soft tissue swelling and ecchymosis surrounding the medial and lateral aspects of the incision. Calf is soft, no tenderness with palpation. Plantar flexion, dorsiflexion, EHL, FHL are intact. Sensory exam to light touch throughout the extremity is intact, dorsal pedis pulses 2+. - Labs CBC & Chem 7: 11/09/17 06:45 11/09/17 06:45 Labs: Abnormal Lab Results - Last 24 Hours (Table) 11/09/17 11/09/17 Range/Units 06:45 06:45 RBC 3.90 L (4.30-5.90) m/uL Hgb 12.0 L (13.0-17.5) gm/dL Hct 35.7 L (39.0-53.0) % BUN 21 H (9-20) mg/dL Glucose 106 H (74-99) mg/dL Calcium 8.2 L (8.4-10.2) mg/dL Total Protein 5.0 L (6.3-8.2) g/dL Albumin 2.9 L (3.5-5.0) g/dL Assessment and Plan Plan: Assessment: Postoperative day #1 status post left total hip arthroplasty Plan: Pain control, we'll discharge home on tramadol 50 mg every 6 GI and DVT prophylaxis, aspirin 325 mg twice a day for a month Medical recommendations Wound care instructions were discussed Home therapy and nursing after discharge Discharge planning: Patient will be discharged home today Time with Patient: Less than 30
--- NOTE | 2017-11-09 10:55 | P.DS ---
Providers Date of admission: 11/08/17 06:01 Expected date of discharge: 11/09/17 Attending physician: Calixto Hardwick Consults: 11/08/17 09:37 Consult Physician Routine Consulting Provider: Yvette Sifuentes Consult Reason/Comments: Medical management Do you want consulting provider notified?: Yes Primary care physician: Benjie Harris [place] Hospital Course: Date of admission: 11/08/2017 Date of discharge: 11/09/2017 Admission diagnosis: Status post left total hip arthroplasty Discharge diagnosis: Same Attending physician: Dr. Hardwick Surgical procedures: Left total hip arthroplasty Brief history: Patient is a 67-year-old male with a history of progressive primary left hip osteoarthritis. At this point patient has failed conservative treatment measures and has opted to proceed with a elective left total hip arthroplasty. Hospital course: Details of patient's surgery can be found in operative report. Patient tolerated the procedure well and was subsequently transported to orthopedic floor. Patient's orthopeidc and medical care was provided daily. Patient had daily laboratory tests performed for evaluation of overall blood counts. Patient had daily physical therapy to include strengthening range of motion as well as education with walker ambulation. Patient was treated with Lovenox for their postoperative DVT prophylaxis during their inpatient stay. Patient was noted to have a relatively uneventful postoperative course. Patient reported satisfactory pain control with oral pain medications by postoperative day 0. Patient showed satisfactory progress with physical therapy. Patient moved steadily through the program and had no difficulty meeting the goals by postoperative day 2. Given patient's otherwise satisfactory course and having met physical therapy goals, plan is to discharge patient home on postoperative day 2. Discharge condition/disposition: Patient will be discharged home in stable condition. Discharge medications: Instructions are given on resumption of patient's normal daily medications per primary care recommendation, in addition patient will be prescribed and tramadol 50 mg, aspirin 325 mg. Discharge instructions: 1. Wound care and infection precautions, keep incision dry and covered while showering, no lotions, creams, moisturizers. No soaking, tubs, pools, hottubs. Do not scrub over the incision. 2. Weight-bear as tolerated with walker / cane until follow-up. 3. Ice and elevate when necessary. Do not exceed 20 minutes per hour with ice pack. 4. Utilize compression sleeve until seen at first follow up appointment. 5. Visiting nursing care. 6. Home physical therapy. 7. Pain meds and anticoagulants per prescription. 8. Pain medication has potential to cause constipation. Increase oral fluid and fiber intake. Contact primary care provider if you have not had a bowel movement within 48 hours after discharge 9. No anti-inflammatory medication until discussed at first post operative visit, this including Motrin, Aleve, Mobic, Diclofenac. 10. Follow up in office at 2 weeks postop with Todd Solorio PA-C 11. Follow up with your primary care doctor 7-10 days after discharge. 12. Contact [facility] with any questions, . Procedures: Left total hip arthroplasty Patient Condition at Discharge: Good Plan - Discharge Summary Discharge Rx Participant: Yes New Discharge Prescriptions: New Spironolactone [Aldactone] 25 mg PO DAILY #30 tab Aspirin 325 mg PO BID #60 tab traMADol HCl [Ultram] 50 mg PO Q6H PRN #28 tab PRN Reason: Pain Continue Losartan Potassium 100 mg PO QAM Multivit-Min/FA/Lycopen/Lutein [Centrum Silver Men Tablet] 1 tab PO DAILY Gabapentin [Neurontin] 300 mg PO TID PRN PRN Reason: Pain Furosemide [Lasix] 20 mg PO QAM Folic Acid 1 mg PO DAILY #14 tablet Thiamine [Vitamin B-1] 100 mg PO DAILY #14 tablet traZODone HCL [Desyrel] 100 mg PO HS Fluticasone Nasal [place] [Flonase Nasal [place]] 2 spr EA NOSTRIL DAILY PRN PRN Reason: allergies Aspirin 325 mg PO DAILY Carvedilol [Coreg*] 12.5 mg PO BID Acetaminophen Tab [Tylenol] 325 - 650 mg PO Q4H PRN PRN Reason: Pain Ubidecarenone [Co Q-10] 100 mg PO DAILY Turmeric Root Extract [Turmeric] 500 mg PO DAILY No Action Naltrexone HCl [Revia] 50 mg PO DAILY Discharge Medication List Losartan Potassium 100 mg PO QAM 09/25/14 [History] Multivit-Min/FA/Lycopen/Lutein [Centrum Silver Men Tablet] 1 tab PO DAILY [History] Gabapentin [Neurontin] 300 mg PO TID PRN 10/27/16 [History] Furosemide [Lasix] 20 mg PO QAM 11/08/16 [History] Folic Acid 1 mg PO DAILY #14 tablet 11/12/16 [Rx] Thiamine [Vitamin B-1] 100 mg PO DAILY #14 tablet 11/12/16 [Rx] Acetaminophen Tab [Tylenol] 325 - 650 mg PO Q4H PRN 11/02/17 [History] Aspirin 325 mg PO DAILY 11/02/17 [History] Carvedilol [Coreg*] 12.5 mg PO BID 11/02/17 [History] Fluticasone Nasal [place] [Flonase Nasal [place]] 2 spr EA NOSTRIL DAILY PRN [History] Naltrexone HCl [Revia] 50 mg PO DAILY 11/02/17 [History] Ubidecarenone [Co Q-10] 100 mg PO DAILY 11/02/17 [History] traZODone HCL [Desyrel] 100 mg PO HS 11/02/17 [History] Turmeric Root Extract [Turmeric] 500 mg PO DAILY 11/08/17 [History] Aspirin 325 mg PO BID #60 tab 11/09/17 [Rx] Spironolactone [Aldactone] 25 mg PO DAILY #30 tab 11/09/17 [Rx] traMADol HCl [Ultram] 50 mg PO Q6H PRN #28 tab 11/09/17 [Rx] Follow up Appointment(s)/Referral(s): [facility] Visiting Nurse, [NON-STAFF] - Dmitry Solorio PAC [[employer] COMP[employer] ADMINISTRATOR] - 2 Weeks Activity/Diet/Wound Care/Special Instructions: Orthopedic Discharge Instructions: 1. Wound care and infection precautions, keep incision dry and covered while showering, no lotions, creams, moisturizers. No soaking, pools, hot tubs. Do not scrub over incision. 2. Weight-bear as tolerated with walker / cane until follow-up. 3. Ice and elevate when necessary. Do not exceed 20 minutes per hour with ice pack. 4. Utilize compression sleeve until seen at first follow up appointment. 5. Pain meds and anticoagulants per prescription. 6. Pain medication has potential to cause constipation. Increase oral fluid and fiber intake. Contact primary care provider if you have not had a bowel movement within 48 hours after discharge. 7. No anti-inflammatory medication until discussed at first post operative visit, this including Motrin, Aleve, Mobic, Diclofenac. 8. Follow up in office at 2 weeks postop with Todd Solorio PA-C 9. Follow up with your primary care doctor 7-10 days after discharge. 10. Contact [facility] with any questions, . Discharge Disposition: HOME WITH HOME HEALTH SERVICES
[2017-11-09] MEDS ORDERED: MULTIVITAMINS, THERA 1 EACH TAB PO SCH (12:00)
[2017-11-09] MEDS ORDERED: FOLIC ACID 1 MG TAB PO SCH (12:00)
[2017-11-10] MEDS ORDERED: SPIRONOLACTONE 25 MG TAB PO SCH (09:00)
--- NOTE | 2017-11-10 12:03 | CDI ---
Last Revision, February 2017 Documentation Clarification Form Date: 11/10 From: Sharifa De Leon Phone: If you have a question regarding this query, please contact Ankita Church at [phone] between 8am and 5pm. Admit Date: 11/08/2017 6:01:00 AM Patient Name: Victoriano Cha Visit Number: [id number] Discharge Date: 11/09/17 ATTENTION: The Clinical Documentation Specialists (CDI) and [facility] Coding Staff appreciate your assistance in clarifying documentation. Please respond to the clarification below the line at the bottom and electronically sign. The CDI & [facility] Coding staff will review the response and follow-up if needed. Please note: Queries are made part of the Legal Health Record. If you have any questions, please contact the author of this message via ITS. Chip Batista MD Uncontrolled hypertension is documented in your consult note and progress note. Patient history/risk factors: Patient has a history of hypertension and obstructive sleep apnea. Blood pressure: Systolic BP 76 - 171, Diastolic BP 60 - 107. BP on 11/08 at 11: 15 171/97, at 11:30 165/107 and at 11:45 170/63. Treatment: Added spironolactone 25 mg by mouth twice a day to his regimen and continue to monitor. In your professional opinion, can you please clarify the type of uncontrolled hypertension? Unable to determine MTDD
== END 2017-11-09 18:33 | disposition home health service (06) | DRG 470 ==
LOC: 2ORMAIN 06:01 → 3SUR 09:22
PROVIDERS: ADMIT Orthopaedic Surgery; ATTEND Orthopaedic Surgery
PROC: 0SRB04A Replacement of Left Hip Joint with Ceramic on Polyethylene Synthetic Substitute, Uncemented, Open Approach (ICD-10-PCS; principal; 2017-11-08 07:30)
DX: M16.12 Unilateral primary osteoarthritis, left hip (principal); E66.9 Obesity, unspecified; G47.33 Obstructive sleep apnea (adult) (pediatric); I10 Essential (primary) hypertension; K21.9 Gastro-esophageal reflux disease without esophagitis; F32.9 Major depressive disorder, single episode, unspecified; M48.061 Spinal stenosis, lumbar region without neurogenic claudication; R00.1 Bradycardia, unspecified; M51.36 Other intervertebral disc degeneration, lumbar region; G62.1 Alcoholic polyneuropathy; E78.5 Hyperlipidemia, unspecified; M17.11 Unilateral primary osteoarthritis, right knee; Z79.82 Long term (current) use of aspirin; Z79.899 Other long term (current) drug therapy; Z68.34 Body mass index [BMI] 34.0-34.9, adult; Z88.1 Allergy status to other antibiotic agents; Z88.5 Allergy status to narcotic agent; Z88.0 Allergy status to penicillin; Z88.2 Allergy status to sulfonamides; Z82.49 Family history of ischemic heart disease and other diseases of the circulatory system; Z83.3 Family history of diabetes mellitus; Z82.3 Family history of stroke; Z80.3 Family history of malignant neoplasm of breast; Z80.51 Family history of malignant neoplasm of kidney
CPT/HCPCS: 73501; 80053; 85025; 86850; 86900; 86901; 88300

== ENCOUNTER 2017-12-17 19:40 | Emergency (ER) | payer MEDICARE, OTHER ==
--- NOTE | 2017-12-17 20:20 | ED ---
Alcohol HPI <ManuelTai D - Last Filed: 12/18/17 04:57> - General Source: patient Mode of arrival: wheelchair Limitations: no limitations - History of Present Illness MD Complaint: alcohol intoxication, alcohol withdrawal, alcohol dependence, desires rehab <Joshua Ortiz - Last Filed: 12/19/17 01:00> - General Chief Complaint: Alcohol Stated Complaint: Etoh Time Seen by Provider: 12/17/17 20:01 - History of Present Illness Initial Comments: Patient is a 67 or melena history of alcoholism who presents with a chief complaint of alcohol withdrawal and acute intoxication. Patient states that she has been drinking heavily for the last 2 weeks. He states that he had a pint of vodka, and took another big drink before he came to the emergency department. His son and ex- were with him at bedside states that he drank more on the way here. Patient states that he has been in alcohol withdrawal before and has had seizures and hallucinations. Patient states that he currently feels depressed because he had a hip replacement and he is not progressing as quickly as he would like. Patient denies suicidal or homicidal ideations at this time. (Joshua Ortiz) - Related Data Home Medications Medication Instructions Recorded Confirmed Losartan Potassium 100 mg PO QAM 09/25/14 12/18/17 Multivit-Min/FA/Lycopen/Lutein 1 tab PO DAILY 06/26/16 12/18/17 [Centrum Silver Men Tablet] Gabapentin [Neurontin] 300 mg PO TID PRN 10/27/16 12/18/17 Furosemide [Lasix] 20 mg PO QAM 11/08/16 12/18/17 Acetaminophen Tab [Tylenol] 325 - 650 mg PO Q4H PRN 11/02/17 12/18/17 Aspirin 325 mg PO DAILY 11/02/17 12/18/17 Carvedilol [Coreg*] 12.5 mg PO BID 11/02/17 12/18/17 Fluticasone Nasal [place] [Flonase 2 spr EA NOSTRIL DAILY PRN 11/02/17 12/18/17 Nasal [place]] Naltrexone HCl [Revia] 50 mg PO DAILY 11/02/17 12/18/17 Ubidecarenone [Co Q-10] 100 mg PO DAILY 11/02/17 12/18/17 traZODone HCL [Desyrel] 100 mg PO HS 11/02/17 12/18/17 Turmeric Root Extract [Turmeric] 500 mg PO DAILY 11/08/17 12/18/17 Previous Rx's Medication Instructions Recorded Folic Acid 1 mg PO DAILY #14 tablet 11/12/16 Thiamine [Vitamin B-1] 100 mg PO DAILY #14 tablet 11/12/16 Aspirin 325 mg PO BID #60 tab 11/09/17 Spironolactone [Aldactone] 25 mg PO DAILY #30 tab 11/09/17 traMADol HCl [Ultram] 50 mg PO Q6H PRN #28 tab 11/09/17 Allergies Allergy/AdvReac Type Severity Reaction Status Date / Time clindamycin Allergy Rash/Hives Verified 12/17/17 19:46 hydrocodone bitartrate Allergy Rash/Hives Verified 12/17/17 19:46 [From Vicodin] Penicillins Allergy Rash/Hives Verified 12/17/17 19:46 Sulfa (Sulfonamide Allergy Rash/Hives Verified 12/17/17 19:46 Antibiotics) Review of Systems ROS Other: All systems not noted in ROS Statement are negative. <Tai Jackson - Last Filed: 12/18/17 04:57> ROS Other: All systems not noted in ROS Statement are negative. <Joshua Ortiz - Last Filed: 12/19/17 01:00> ROS Statement: Those systems with pertinent positive or pertinent negative responses have been documented in the HPI. Past Medical History Past Medical History: Hypertension Additional Past Medical History / Comment(s): HYPOGLYCEMIA,LUMBAR STENOSIS, syncope and metabolic encephalopathy, alcohol withdrawals History of Any Multi-Drug Resistant Organisms: None Reported Past Surgical History: Orthopedic Surgery Additional Past Surgical History / Comment(s): RIGHT TORN ACL, HYDROCELE Past Anesthesia/Blood Transfusion Reactions: No Reported Reaction Past Psychological History: Depression Smoking Status: Never smoker Past Alcohol Use History: Abuse, Daily, Heavy Past Drug Use History: None Reported - Past Family History Father Family Medical History: CVA/TIA Mother Family Medical History: Cancer, Deep Vein Thrombosis (DVT) <Joshua Ortiz - Last Filed: 12/19/17 01:00> General Exam Limitations: no limitations General appearance: alert, in no apparent distress, appears intoxicated Head exam: Present: atraumatic, normocephalic Eye exam: Present: normal appearance, PERRL. Absent: scleral icterus ENT exam: Present: normal exam Neck exam: Present: normal inspection Respiratory exam: Present: normal lung sounds bilaterally. Absent: respiratory distress, wheezes Cardiovascular Exam: Present: regular rate, normal rhythm GI/Abdominal exam: Present: soft. Absent: distended, tenderness Rectal exam: Present: deferred Extremities exam: Present: normal inspection Back exam: Present: normal inspection Neurological exam: Present: alert, oriented X3 Psychiatric exam: Present: depressed, other (intoxicated ) Skin exam: Present: warm, dry, intact <Joshua Ortiz - Last Filed: 12/19/17 01:00> Vital Signs 12/17/17 12/18/17 12/18/17 19:44 01:06 02:28 Temperature 98.3 F Pulse Rate 100 91 89 Respiratory 18 22 20 Rate Blood Pressure 99/54 110/67 166/79 O2 Sat by Pulse 97 95 95 Oximetry 12/18/17 06:48 Temperature 99.2 F Pulse Rate 93 Respiratory 18 Rate Blood Pressure 178/74 O2 Sat by Pulse 98 Oximetry Medical Decision Making - Lab Data Result diagrams: 12/17/17 20:23 12/17/17 20:23 <Tai Jackson - Last Filed: 12/18/17 04:57> - Lab Data Result diagrams: 12/17/17 20:23 12/17/17 20:23 <Joshua Ortiz - Last Filed: 12/19/17 01:00> - Medical Decision Making Patient care was signed out to me by previous shift physician. Patient was observed in the emergency department. Patient is clinically sober at approximately 4:30 AM. Patient tolerate by mouth and ambulating at baseline. Patient be discharged. Not showing any signs of alcohol withdrawal. Advised follow-up with primary care physician. (Tai Jackson) Patient presents with chief complaint of alcohol intoxication and withdraw. On initial evaluation, vital signs are stable, patient is a no acute distress though he is clearly intoxicated. Patient to be evaluated with basic labs, and serum alcohol level. Patient given B12 and folate. Patient agreeable to stay for social work evaluation. lab evaluation is unremarkable, EtOH at 230. patient clinically sober at 6am. case signed out to overnight physician with attention to withdraw symptoms. (Joshua Ortiz) - Lab Data Lab Results 12/17/17 12/17/17 Range/Units 20:23 20:23 WBC 7.8 (3.8-10.6) k/uL RBC 5.15 (4.30-5.90) m/uL Hgb 15.9 (13.0-17.5) gm/dL Hct 46.5 (39.0-53.0) % MCV 90.3 (80.0-100.0) fL MCH 30.8 (25.0-35.0) pg MCHC 34.2 (31.0-37.0) g/dL RDW 14.6 (11.5-15.5) % Plt Count 280 (150-450) k/uL Neutrophils % 68 % Lymphocytes % 19 % Monocytes % 8 % Eosinophils % 1 % Basophils % 1 % Neutrophils # 5.3 (1.3-7.7) k/uL Lymphocytes # 1.5 (1.0-4.8) k/uL Monocytes # 0.6 (0-1.0) k/uL Eosinophils # 0.1 (0-0.7) k/uL Basophils # 0.1 (0-0.2) k/uL Sodium 142 (137-145) mmol/L Potassium 4.1 (3.5-5.1) mmol/L Chloride 100 (98-107) mmol/L Carbon Dioxide 23 (22-30) mmol/L Anion Gap 19 mmol/L BUN 20 (9-20) mg/dL Creatinine 1.07 (0.66-1.25) mg/dL Est GFR (CKD-EPI)AfAm 84 (>60 ml/min/1.73 sqM) Est GFR (CKD-EPI)NonAf 73 (>60 ml/min/1.73 sqM) Glucose 76 (74-99) mg/dL Calcium 8.6 (8.4-10.2) mg/dL Total Bilirubin 0.7 (0.2-1.3) mg/dL AST 57 (17-59) U/L ALT 48 (21-72) U/L Alkaline Phosphatase 110 (38-126) U/L Total Protein 6.5 (6.3-8.2) g/dL Albumin 4.0 (3.5-5.0) g/dL Serum Alcohol 230 H* mg/dL Disposition Is patient prescribed a controlled substance at d/c from ED?: No Time of Disposition: 04:58 <Tai Jackson - Last Filed: 12/18/17 04:57> Is patient prescribed a controlled substance at d/c from ED?: No <Joshua Ortiz - Last Filed: 12/19/17 01:00> Clinical Impression: Alcohol intoxication Disposition: HOME SELF-CARE Condition: Good Instructions: Alcohol Intoxication (ED) Referrals: Benjie Harris MD [Primary Care Provider] - 1-2 days
[2017-12-17 20:37] LABS: Basophils # (A) 0.1 k/uL (0-0.2); Basophils % (A) 1 %; Eosinophils # (A) 0.1 k/uL (0-0.7); Eosinophils % (A) 1 %; HCT 46.5 % (39.0-53.0); HGB 15.9 gm/dL (13.0-17.5); Lymphocytes # (A) 1.5 k/uL (1.0-4.8); Lymphocytes % (A) 19 %; MCH 30.8 pg (25.0-35.0); MCHC 34.2 g/dL (31.0-37.0); MCV 90.3 fL (80.0-100.0); Mean Platelet Volume 7.3; Monocytes # (A) 0.6 k/uL (0-1.0); Monocytes % (A) 8 %; Neutrophils # (A) 5.3 k/uL (1.3-7.7); Neutrophils % (A) 68 %; Platelet Count 280 k/uL (150-450); RBC 5.15 m/uL (4.30-5.90); RDW 14.6 % (11.5-15.5); WBC 7.8 k/uL (3.8-10.6)
[2017-12-17 20:53] LABS: Calcium 8.6 mg/dL (8.4-10.2); Potassium 4.1 mmol/L (3.5-5.1); Total Bilirubin 0.7 mg/dL (0.2-1.3); Total Protein 6.5 g/dL (6.3-8.2)
[2017-12-17] MEDS ORDERED: CYANOCOBALAMIN 500 MCG TAB PO ONE (21:37)
[2017-12-17] MEDS ORDERED: FOLIC ACID 1 MG TAB PO ONE (21:37)
[2017-12-17] MEDS ORDERED: ONDANSETRON 4 MG TAB PO STA (21:43)
[2017-12-18] MEDS ORDERED: METOCLOPRAMIDE 5 MG TAB PO STA (01:50)
[2017-12-18] MEDS ORDERED: diphenhydrAMINE 50 MG CAP PO STA (01:50)
[2017-12-18] MEDS ORDERED: METOCLOPRAMIDE 10 MG TAB PO STA (04:54)
[2017-12-18 06:53] VITALS: BP 178/74; PULSE 93; RESP 18; TEMP 99.2
[2017-12-18] MEDS ORDERED: CYANOCOBALAMIN 500 MCG TAB PO SCH (12:00)
[2017-12-18] MEDS ORDERED: FOLIC ACID 1 MG TAB PO SCH (12:00)
== END 2017-12-18 06:53 | disposition home or self-care (01) ==
LOC: EC 19:40
DX: F10.129 Alcohol abuse with intoxication, unspecified (principal); Y90.7 Blood alcohol level of 200-239 mg/100 ml; I10 Essential (primary) hypertension; F32.9 Major depressive disorder, single episode, unspecified; Z79.82 Long term (current) use of aspirin; Z79.02 Long term (current) use of antithrombotics/antiplatelets; Z79.899 Other long term (current) drug therapy; Z88.0 Allergy status to penicillin; Z88.1 Allergy status to other antibiotic agents; Z88.2 Allergy status to sulfonamides; Z88.5 Allergy status to narcotic agent
CPT/HCPCS: 36415; 80053; 85025; 99284; G0480; 80320

== ENCOUNTER → 2021-08-26 | Outpatient (CLI) | payer MEDICARE, OTHER ==
[2021-08-26 23:32] LABS: INR 0.97 (0.90-1.11); Prothrombin Time 10.7 sec (9.9-11.9)
== END | disposition home or self-care (01) ==
LOC: LABPAT 14:54
PROVIDERS: ATTEND Orthopaedic Surgery
DX: Z01.812 Encounter for preprocedural laboratory examination (principal); M17.11 Unilateral primary osteoarthritis, right knee
CPT/HCPCS: 85610; 87070

== ENCOUNTER 2021-09-01 10:42 | Observation (INO) | payer MEDICARE, OTHER ==
[2021-08-28 16:17] VITALS: BMI 34.8
--- NOTE | 2021-08-31 12:12 | HP ---
HISTORY AND PHYSICAL HISTORY OF PRESENT ILLNESS: Unruly Cha is a 71-year-old patient seen with symptomatic right knee osteoarthritis. We discussed options for treatment. He elected to proceed with right total knee arthroplasty. Consent was obtained. Cardiac clearance was provided by Dr. Urbina. PAST MEDICAL HISTORY: Hypertension, hyperlipidemia. PAST SURGICAL HISTORY: Knee arthroscopy, left total hip arthroplasty. MEDICATIONS: Amlodipine, carvedilol, gabapentin, sertraline. ALLERGIES: SULFA, VICODIN, PENICILLIN. SOCIAL HISTORY: Denies tobacco use. PHYSICAL EVALUATION OF THE RIGHT KNEE: Range of motion is 0-115. Mild effusion. Tenderness along the medial and lateral joint line. Crepitus along all 3 compartments. Ligaments stable. Distal neurovascular exam is intact. RADIOGRAPHS: Radiographs of the right knee reveal severe osteoarthritic changes. IMPRESSION: 1. Right knee osteoarthritis. 2. Hypertension. 3. Hyperlipidemia. PLAN: Right total knee arthroplasty. Surgery scheduled for 09/01/2021. MMODL / IJN: [id number] /
[~2021-09-01 10:42] MED LIST changes: -ACETAMINOPHEN TAB 500 MG TAB PO ONE; +ACETAMINOPHEN TAB 500 MG TAB PO PRN; -DEXAMETHASONE SOD PHOSPHATE 10 MG/ML 1 ML VIAL IV ONE; +DEXAMETHASONE SOD PHOSPHATE 4 MG/ML 1 ML VIAL IV ONE; -MELOXICAM 7.5 MG TAB PO ONE; +MELOXICAM 7.5 MG TAB PO PRN; -TRANEXAMIC ACID 1,000 MG in SODIUM CHLORIDE 0.9% 50 ML IVPB ONE; +TRANEXAMIC ACID IN NACL,ISO-OS 1,000 MG in SALINE 1 100ML.BAG IVPB PRN; -ceFAZolin IN SWFI 2 GM/20 ML SYRINGE IVP ONE
[2021-09-01] MEDS: LACTATED RINGERS 1,000 ML IV SCH ×2 (11:40→18:08)
[2021-09-01 11:42] LABS: Glucose,Whole Blood 96 mg/dL (70-110)
[2021-09-01] MEDS ORDERED: MIDAZOLAM 2 MG/2 ML VIAL IVP ONE (11:42)
[2021-09-01] MEDS ORDERED: POTASSIUM CHLORIDE 20 MEQ in WATER FOR INJECTION 1 100ML.BAG IVPB STA (12:12)
[2021-09-01] MEDS ORDERED: TRANEXAMIC ACID IN NACL,ISO-OS 1,000 MG/100 ML BAG ONE (12:54)
[2021-09-01] MEDS ORDERED: fentaNYL (PF) 50 MCG/ML 2 ML AMP ONE (12:54)
[2021-09-01] MEDS ORDERED: ROPIVACAINE 5 MG/ML 30 ML VIAL ONE (12:54)
[2021-09-01] MEDS ORDERED: DEXAMETHASONE SOD PHOSPHATE 4 MG/ML 1 ML VIAL ONE (12:54)
[2021-09-01] MEDS ORDERED: PROPOFOL 10 MG/ML 20 ML VIAL IV ONE (12:54)
[2021-09-01] MEDS ORDERED: MIDAZOLAM 2 MG/2 ML VIAL ONE (12:54)
[2021-09-01] MEDS ORDERED: ROPIVACAINE 0.2%-NS ON-Q PUMP 1,090 MG, EMPTY PAIN BALL 1 EACH MISCELLANE PRN (13:29)
--- NOTE | 2021-09-01 13:33 | P.ANPRN ---
Procedure Note - Anesthesia - Nerve Block Performed Right Adductor Canal Single Time Out Performed: Yes Date of Procedure: 09/01/21 Procedure Start Time: 11:42 Procedure Stop Time: 11:55 Location of Patient: PreOp Indication: Acute Post-Operative Pain, Requested by Surgeon Sedation Type: Sedate with meaningful contact maintained Preparation: Sterile Prep, Sterile Dressing Position: Supine Catheter: Indwelling Needle Types: On-Q Needle Gauge: 18 Ultrasound used to visualize needle placement: Yes Ultrasound used to observe medication spread: Yes Injectate: 0.5% Ropivacaine (see comment for volume) (15 ml + decadron 2 mg) Blood Aspirated: No Pain Paresthesia on Injection Noted: No Resistance on Injection: Normal Image Stored and Saved: Yes Events: Uneventful and Well Tolerated Right iPack Single Time Out Performed: Yes Date of Procedure: 09/01/21 Procedure Start Time: 11:56 Procedure Stop Time: 12:04 Location of Patient: PreOp Indication: Acute Post-Operative Pain, Requested by Surgeon Sedation Type: Sedate with meaningful contact maintained Preparation: Sterile Prep, Sterile Dressing Position: Left Lateral Catheter: None Needle Types: Pajunk Needle Gauge: 20 Ultrasound used to visualize needle placement: Yes Ultrasound used to observe medication spread: Yes Injectate: 0.5% Ropivacaine (see comment for volume) (15 ml + decadron 2 mg) Blood Aspirated: No Pain Paresthesia on Injection Noted: No Resistance on Injection: Normal Image Stored and Saved: Yes Events: Uneventful and Well Tolerated
[2021-09-01] MEDS ORDERED: NALOXONE 0.4 MG/ML 1 ML VIAL IV PRN (15:05)
[2021-09-01] MEDS ORDERED: ONDANSETRON 4 MG/2 ML VIAL IVP PRN (15:05)
[2021-09-01] MEDS ORDERED: ACETAMINOPHEN TAB 325 MG TAB PO PRN (15:05)
[2021-09-01] MEDS ORDERED: HYDROmorphone 0.5 MG/0.5 ML SYRINGE IVP PRN ×3 (15:05)
--- NOTE | 2021-09-01 15:05 | P.OP ---
Date of Procedure: 09/01/21 Preoperative Diagnosis: Right knee osteoarthritis Postoperative Diagnosis: Right knee osteoarthritis Procedure(s) Performed: Right total knee arthroplasty Implants: 1. Depuy attune size 6 right cruciate retaining cemented femur 2. Depuy attune size 7 fixed bearing cemented tibial baseplate 3. Depuy attune size 6 cruciate retaining fixed bearing 12 mm polyethylene tibial insert 4. Depuy attune 38 mm all polyethylene cemented patella Anesthesia: regional (Adductor canal catheter, Ipack block), spinal Surgeon: Calixto Hardwick Night Manager #1: Dmitry Solorio Estimated Blood Loss (ml): 45 Pathology: other (Bone) Condition: stable Disposition: PACU Indications for Procedure: 71-year-old patient seen with symptomatic right knee osteoarthritis. After treatment options were discussed, he elected to proceed with right total knee arthroplasty. Operative Findings: See description of procedure Description of Procedure: Patient was taken to the operative suite after having an adductor canal catheter placed by the department of anesthesia as well as an Ipack block for postoperative pain management. Patient underwent a spinal anesthetic by the department of anesthesia. Patient was given preoperative IV intake antibiotics and TXA. A well-padded tourniquet was placed about the right lower extremity. The lower extremity was then prepped and draped in the normal sterile orthopedic fashion. The extremity was elevated, a tourniquet was insufflated to 300. A standard anterior incision was made sharply through skin. Dissection was taken down through the subcutaneous soft tissues down to the extensor mechanism. A medial arthrotomy was performed, patella was everted and knee was flexed. There was advanced osteoarthritis noted. I introduced my distal intramedullary femoral drill. I then introduced the distal femoral cutting jig. Todd ALMODOVAR secured the cutting jig with 2 pins. I held retractors in position while Todd ALMODOVAR performed the distal femoral resection through the guide area we now removed her distal femoral cutting guide. We now placed our 4-in-1 femoral cutting block and positioned and it was secured with 2 pins by Todd ALMODOVAR while I held the block in position. The distal femoral finishing was now completed. A proximal tibial cutting guide was positioned. I held the guide in the appropriate position with both hands well Todd ALMODOVAR inserted stabilizing pins into the guide. Proximal tibial cut was made. We now placed a trial femoral component into position, along with an appropriate size tibial tray and insert. We now took the knee through range of motion and had full extension good flexion and good overall soft tissue balance noted. The patella was everted and stabilized with 2 towel clips held by Todd ALMODOVAR while I performed a flush with patellar quad tendon utilizing a fresh sawblade. We templated the patella, appropriate drill holes were made. An appropriate trial patella was positioned, knee was taken through full range of motion with the patella tracking very nicely. The trial patella was removed. Drill holes were made through the femoral component. All trial components were removed after marking off the appropriate rotation of the tibia. Retractors were now positioned along the proximal tibia. An appropriate keel punch was made with the appropriate size tibial guide by myself on Todd ALMODOVAR assisted by holding retractors. At this point appropriate size implants were chosen and opened. The joint was irrigated copiously with pulse lavage mechanical irrigation. The posterior capsule was infiltrated with local analgesic. The wound was irrigated with pulse lavage mechanical irrigation. We mixed antibiotic methylmethacrylate. We placed the knee into flexion. We placed multiple retractors assisted by Todd ALMODOVAR to expose the proximal tibia. Once the methyl methacrylate was ready, the tibial component was cemented into place removing any excess methylmethacrylate form by both myself and Todd ALMODOVAR. The femoral component was cemented into place removing the removing any excess methylmethacrylate performed by both myself and Todd ALMODOVAR. We then inserted the appropriate size polyethylene tibial insert. We made sure that it was locked into position. We took the knee into full extension, and then back in a flexion making sure we had removed any excess methylmethacrylate. The patellar component was then cemented down and secured with clamp. Excess methylmethacrylate removed. We kept the knee in full extension, patellar clamp in position until methylmethacrylate had hardened. Once it had hardened the patellar clamp was removed. The knee was taken through full range of motion. The patella tracked nicely. There was good soft tissue balancing. The tourniquet was now released. Additional hemostasis was achieved via electrocautery. A second gram of TXA was given. The wound again was irrigated with pulse lavage mechanical irrigation. The superficial soft tissues were infiltrated local analgesic. The extensor mechanism was repaired with Ethibond. We checked the repair with range of motion and it was stable. The subcutaneous soft tissues were repaired with Vicryl in layers. The skin was approximated with pernio/Dermabond. Sterile dressings were applied followed by loose web roll and Michael bandage. The patient was transferred to a bed, and taken to recovery in stable and satisfactory condition. Todd ALMODOVAR assisted with this complex procedure.
--- NOTE | 2021-09-01 16:08 | XR ---
Right knee HISTORY: Status post right knee arthroplasty 2 views the right knee There is lucency in the soft tissues consistent with postop state. Patient is status post right knee arthroplasty. There is anatomic alignment. 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 IMPRESSION: Orthopedic follow-up.
[2021-09-01] MEDS: Acetaminophen-Codeine 300-30mg TAB PO PRN (19:22)
[2021-09-01] MEDS ORDERED: SENNOSIDES-DOCUSATE SODIUM 1 EACH TAB PO SCH (21:00)
[2021-09-01] MEDS: traMADol 50 MG TAB PO PRN (23:48)
[2021-09-02 03:19] VITALS: RESP 14
--- NOTE | 2021-09-02 05:35 | P.CONS ---
History of Present Illness - Reason for Consult Consult date: 09/02/21 - History of Present Illness The patient is a 71-year-old male with a PMH of hypertension and hyperlipidemia who was admitted for an elective right total knee replacement. The patient underwent the procedure with no immediate postoperative complications. He was seen postoperatively on the surgical unit. He reported excellent control his pain, rated at a 2 out of 10 at rest. He reports having gotten out of bed and has passed urine. He denies experiencing chest discomfort, shortness of breath, fever, chills, cough, nausea, vomiting, abdominal pain, diarrhea. Reports compliance with all his medications at home. Review of systems: Pertinent positives and negatives as discussed in HPI, a complete review of systems was performed and all other systems are negative. Physical examination: General: non toxic, no distress, appears at stated age, obese Derm: no unusual rashes/lesions, warm Head: atraumatic, normocephalic, symmetric Eyes: EOMI, no lid lag, anicteric sclera, pupils equal round reactive to light ENT: Nose and ears atraumatic Neck: No cervical lymphadenopathy, trachea midline, supple Mouth: no lip lesion, mucus membranes moist Cardiovascular: S1S2 reg, no murmur, positive dorsalis pedis pulse bilateral, no edema Lungs: CTA bilateral, no rhonchi, no rales, no accessory muscle use Abdominal: soft, nontender to palpation, no guarding Ext: muscle strength 5 out of 5 in all 4 extremities grossly except right lower extremity due to pain, right knee dressing in place clean and dry, no gross muscle atrophy, no contractures, Neuro: CN II-XI grossly intact, no gross focal neuro deficits Psych: Alert, oriented, appropriate affect Assessment/plan Chronic conditions: Hypertension, hyperlipidemia -Continue with home meds Status post right total knee replacement -Defer management including pain control, high-dose aspirin, and DVT prophylaxis to the primary surgery service Past Medical History Past Medical History: Hyperlipidemia, Hypertension, Osteoarthritis (OA), Pneumonia, Sleep Apnea/CPAP/BIPAP Additional Past Medical History / Comment(s): HYPOGLYCEMIA,LUMBAR STENOSIS,Neuropathy. History of Any Multi-Drug Resistant Organisms: None Reported Past Surgical History: Orthopedic Surgery Additional Past Surgical History / Comment(s): RIGHT TORN ACL, HYDROCELE REPAIR, TOTAL LEFT HIP, Right TKA (09/01/21) Past Anesthesia/Blood Transfusion Reactions: No Reported Reaction, Motion Sickness Past Psychological History: Depression Smoking Status: Never smoker Past Alcohol Use History: None Reported Additional Past Alcohol Use History / Comment(s): PAST HISTORY Fifth of vodka Daily- QUIT DRINKING JAN 2018 NO DRINKING SINCE Past Drug Use History: None Reported - Past Family History Father Family Medical History: CVA/TIA Mother Family Medical History: Cancer, Deep Vein Thrombosis (DVT) Additional Family Medical History / Comment(s): BREAST CANCER Medications and Allergies Home Medications Medication Instructions Recorded Confirmed Type Losartan Potassium 50 mg PO BID 09/25/14 08/28/21 History Multivit-Min/FA/Lycopen/Lutein 1 tab PO DAILY 06/26/16 08/28/21 History [Centrum Silver Men Tablet] Gabapentin [Neurontin] 600 mg PO HS 10/27/16 08/28/21 History Acetaminophen Tab [Tylenol] 325 - 650 mg PO Q4H PRN 11/02/17 08/28/21 History Aspirin 325 mg PO DAILY 11/02/17 08/28/21 History Fluticasone Nasal [place] [Flonase 2 spr EA NOSTRIL DAILY PRN 11/02/17 08/28/21 History Nasal [place]] Atorvastatin [Lipitor] 40 mg PO HS 08/28/21 08/28/21 History Chlorthalidone [Thalitone] 15 mg PO DAILY 08/28/21 08/28/21 History Sertraline [Zoloft] 100 mg PO DAILY 08/28/21 08/28/21 History amLODIPine [Norvasc] 5 mg PO DAILY 08/28/21 08/28/21 History Allergies Allergy/AdvReac Type Severity Reaction Status Date / Time clindamycin Allergy Rash/Hives Verified 08/28/21 14:43 hydrocodone bitartrate Allergy Rash/Hives Verified 08/28/21 14:43 [From Vicodin] Penicillins Allergy Rash/Hives Verified 08/28/21 14:43 CHILD Sulfa (Sulfonamide Allergy Rash/Hives Verified 08/28/21 14:43 Antibiotics) Physical Exam Vitals: Vital Signs Temp Pulse Pulse Resp BP Pulse Ox 09/02/21 02:00 98 F 57 L 14 122/63 94 L 09/01/21 18:14 97.5 F L 57 L 16 120/69 94 L 09/01/21 17:00 51 L 16 135/67 98 06/20/22 16:45 51 L 16 134/67 98 09/01/21 16:30 51 L 16 135/62 98 09/01/21 16:16 52 L 16 144/67 98 09/01/21 16:00 50 L 16 130/68 96 09/01/21 15:45 51 L 16 129/65 96 09/01/21 15:30 49 L 16 125/60 99 09/01/21 15:21 97 F L 58 L 16 112/88 94 L 09/01/21 12:03 58 L 18 116/56 97 09/01/21 11:04 69 20 134/71 98 Intake and Output 09/01/21 09/01/21 09/02/21 14:59 22:59 06:59 Intake Total 1000 0 Output Total 45 Balance 955 0 Intake: IV 1000 0 Output: Estimated Blood Loss 45 Other: Weight 110.8 kg 110.8 kg Results CBC & Chem 7: 09/01/21 11:33 Labs: Abnormal Lab Results - Last 24 Hours (Table) 09/01/21 Range/Units 11:33 Potassium 3.3 L (3.5-5.1) mmol/L
[2021-09-02] MEDS: LACTATED RINGERS 1,000 ML IV SCH ×3 (05:52→11:27)
[2021-09-02] MEDS ORDERED: ENOXAPARIN 30 MG/0.3 ML SYRINGE SQ SCH (06:00)
[2021-09-02] MEDS: traMADol 50 MG TAB PO PRN ×2 (07:40→14:35)
[2021-09-02] MEDS ORDERED: CHLORTHALIDONE 15 MG PO SCH (09:00)
[2021-09-02] MEDS ORDERED: LOSARTAN 50 MG TAB PO SCH (09:00)
[2021-09-02] MEDS ORDERED: amLODIPine 5 MG TAB PO SCH (09:00)
[2021-09-02] MEDS ORDERED: SERTRALINE 100 MG TAB PO SCH (09:00)
--- NOTE | 2021-09-02 09:26 | P.PN ---
Subjective Progress Note Date: 09/02/21 Hospital course: Patient is a very pleasant 71-year-old male with a past medical history of hypertension, hyperlipidemia, osteoarthritis, and obstructive sleep apnea. He is currently admitted under orthopedic surgery team status post elective right total knee replacement. Patient underwent the procedure on 09/01/21 with no immediate postoperative complications. We have been consulted to provide continued medical management throughout hospitalization. Physical exam: Patient was seen and fully evaluated at bedside this morning. Patient just completed working with physical therapy and doing well. Patient reports pain is moderate to right knee status post doing physical therapy prior to receiving pain medication, however patient being medicated for pain at this time and does report current pain medication regimen is effective in controlling his pain. Patient denies having any postoperative nausea or vomiting and reports urinating without difficulties. Patient denies having any other complaints at this time. Awaiting morning labs to result at this time. Vital signs reviewed and stable. General: Nontoxic, no distress and appears stated age. Derm: Skin warm and dry, normal coloration for ethnicity. Head: Atraumatic, normocephalic and symmetric. Eyes: EOMs intact, no lid lag, and anicteric sclera Mouth: no lip lesions, mucus membranes moist Cardiovascular: regular rate and rhythm with normal S1S2, no murmur, positive posterior tibial pulses bilaterally, and cap refill < 2 seconds. Lungs: Respirations even, regular, and unlabored on room air. Lungs CTA bilaterally, no rhonchi, no rales, no wheezing, and no accessory muscle usage. Abdominal: soft, nontender to palpation, no guarding, no appreciable organomegaly Ext: ROM intact. No gross muscle atrophy, no edema, no contractures Neuro: Speech clear, face symmetrical and CN II-XII grossly intact with no noted focal neuro deficits Psych: Alert and oriented to person, place, time, and situation. Appropriate and pleasant affect. Assessment and Plan of Care: Severe osteoarthritis of right knee Status post right total knee -Management per primary admitting Hypokalemia -Replaced, we will continue to monitor with repeat a.m. labs. Hypertension -Monitor vital signs and continue daily medication regimen with amlodipine and losartan. Hyperlipidemia -Continue daily medication regimen with atorvastatin 40 mg nightly. -Continue a heart healthy diet. CODE STATUS: Full code DVT prophylaxis: Lovenox Thank you for allowing us to participate in the care of this pleasant patient. Do not hesitate to contact us with questions. Someone can be reached from the [facility] hospitalist group all hours of the day at [phone] or via perfect serve. Objective - Vital Signs Vital signs: Vital Signs Temp 97.5 F L 09/02/21 07:58 Pulse 59 L 09/02/21 07:58 Resp 14 09/02/21 02:00 BP 121/68 09/02/21 07:58 Pulse Ox 95 09/02/21 07:58 FiO2 Intake & Output 09/01/21 09/02/21 09/02/21 18:59 06:59 18:59 Intake Total 1000 400 Output Total 45 Balance 955 400 Weight 110.8 kg Intake: IV 1000 Oral 400 Output: Estimated Blood Loss 45 Other: Voiding Method Toilet Urinal - Labs CBC & Chem 7: 09/01/21 11:33 Labs: Abnormal Lab Results - Last 24 Hours (Table) 09/01/21 Range/Units 11:33 Potassium 3.3 L (3.5-5.1) mmol/L
[2021-09-02 09:38] LABS: Basophils # (A) 0 X 10*3/uL (0.00-0.10); Basophils % (A) 0 %; Eosinophils # (A) 0 X 10*3/uL (0.04-0.35); Eosinophils % (A) 0 %; HCT 37.5 % (39.6-50.0); HGB 12.5 g/dL (13.0-17.0); Immature Grans, Automated 0.4 %; Lymphocytes # (A) 0.84 X 10*3/uL (0.90-5.00); Lymphocytes % (A) 7.9 %; MCH 29.5 pg (27.0-32.0); MCHC 33.3 g/dL (32.0-37.0); MCV 88.4 fL (80.0-97.0); Mean Platelet Volume 11.1 fL (9.5-12.2); Monocytes # (A) 0.93 X 10*3/uL (0.20-1.00); Monocytes % (A) 8.8 %; NRBC Per 100 WBC 0 /100 WBCS (0.0-0.0); Neutrophils # (A) 8.78 X 10*3/uL (1.80-7.70); Neutrophils % (A) 82.9 %; Platelet Count 244 X 10*3/uL (140-440); RBC 4.24 X 10*6/uL (4.40-5.60); RDW 13.2 % (11.5-14.5); WBC 10.59 X 10*3/uL (4.50-10.00)
--- NOTE | 2021-09-02 09:58 | P.PN ---
Progress Note - Text Progress Note Date: 09/02/21 Patient doing well. Participating w/ PT. Pain controlled. Right adductor catheter site c/d. OnQ @ 8 ml/hr. Patient denies weakness. A/P POD#1 s/p R TKA - doing well
--- NOTE | 2021-09-02 10:15 | P.DS ---
Providers Date of admission: 09/02/21 07:26 Expected date of discharge: 09/02/21 Attending physician: Calixto Hardwick Consults: 09/01/21 15:05 Consult Physician Routine Consulting Provider: Dariana Reyes Consult Reason/Comments: Medical management Do you want consulting provider notified?: Yes Primary care physician: Aristides Moseley Hospital Course: Date of admission: 08/01/2021 Date of discharge: 08/02/2021 Admission diagnosis: Right knee osteoarthritis Discharge diagnosis: Same Attending physician: Dr. Hardwick Surgical procedures: Right total knee arthroplasty Brief history: Patient is a 71-year-old male with a history of progressive primary right knee osteoarthritis. At this point patient has failed conservative treatment measures and has opted to proceed with a elective right total knee arthroplasty. Hospital course: Details of patient's surgery can be found in operative report. Patient tolerated the procedure well and was subsequently transported to orthopedic floor. Patient's orthopeidc and medical care was provided daily. Patient had daily laboratory tests performed for evaluation of overall blood counts. Patient had daily physical therapy to include strengthening range of motion as well as education with walker ambulation. Patient was treated with Lovenox for their postoperative DVT prophylaxis during their inpatient stay. Patient was noted to have a relatively uneventful postoperative course. Patient reported satisfactory pain control with oral pain medications by postoperative day 1. Patient showed satisfactory progress with physical therapy. Patient moved steadily through the program and had no difficulty meeting the goals by postoperative day 1. Given patient's otherwise satisfactory course and having met physical therapy goals, plan is to discharge patient home with health services on postoperative day 1. Discharge condition/disposition: Patient will be discharged home with health services in stable condition. Discharge medications: Instructions are given on resumption of patient's normal daily medications per primary care recommendation, in addition patient will be prescribed tramadol; Colace. Patient to resume aspirin 325 mg daily once home for DVT prophylaxis. Discharge instructions: 1. Wound care and infection precautions, keep incision dry and covered while s howering, no lotions, creams, moisturizers. No soaking, tubs, pools, hottubs. Do not scrub over the incision. 2. Weight-bear as tolerated with walker / cane until follow-up. 3. Ice and elevate when necessary. Do not exceed 20 minutes per hour with ice pack. 4. Utilize compression sleeve until seen at first follow up appointment. 5. Visiting nursing care. 6. Home physical therapy including home CPM. 7. Pain meds and anticoagulants per prescription. 8. Pain medication has potential to cause constipation. Increase oral fluid and fiber intake. Contact primary care provider if you have not had a bowel movement within 48 hours after discharge 9. No anti-inflammatory medication until discussed at first post operative visit, this including Motrin, Aleve, Mobic, Diclofenac. 10. Follow up in office at 2 weeks postop with Todd Solorio PA-C / Heraclio Wood PA-C 11. Follow up with your primary care doctor 7-10 days after discharge. 12. Contact [facility] with any questions, . Keep silver foam dressing on for 7 days. Silver foam dressing may be removed on 09/08/2021. While silver foam dressing is on, cover with Saran wrap while showering. Once dressing is removed in 7 days, may shower over incision. Do not submerge/soak incision in water/pool/hot tub Medications: tramadol; Colace. Patient to resume aspirin 325 mg daily once home for DVT prophylaxis. Can take [id number] Tylenol between dose of tramadol Assessment: Right knee osteoarthritis Procedures: Right total knee arthroplasty Patient Condition at Discharge: Good Plan - Discharge Summary Discharge Rx Participant: No New Discharge Prescriptions: New Docusate [Colace] 100 mg PO DAILY #30 capsule traMADol HCl [Ultram] 50 mg PO Q6H PRN #40 tab PRN Reason: Pain Continue Losartan Potassium 50 mg PO BID Multivit-Min/FA/Lycopen/Lutein [Centrum Silver Men Tablet] 1 tab PO DAILY Gabapentin [Neurontin] 600 mg PO HS Fluticasone Nasal [place] [Flonase Nasal [place]] 2 spr EA NOSTRIL DAILY PRN PRN Reason: allergies Aspirin 325 mg PO DAILY Atorvastatin [Lipitor] 40 mg PO HS amLODIPine [Norvasc] 5 mg PO DAILY Sertraline [Zoloft] 100 mg PO DAILY Chlorthalidone [Thalitone] 15 mg PO DAILY No Action Acetaminophen Tab [Tylenol] 325 - 650 mg PO Q4H PRN PRN Reason: Pain Discharge Medication List Losartan Potassium 50 mg PO BID 09/25/14 [History] Multivit-Min/FA/Lycopen/Lutein [Centrum Silver Men Tablet] 1 tab PO DAILY 06/26/16 [History] Gabapentin [Neurontin] 600 mg PO HS 10/27/16 [History] Acetaminophen Tab [Tylenol] 325 - 650 mg PO Q4H PRN 11/02/17 [History] Aspirin 325 mg PO DAILY 11/02/17 [History] Fluticasone Nasal [place] [Flonase Nasal [place]] 2 spr EA NOSTRIL DAILY PRN 11/02/17 [History] Atorvastatin [Lipitor] 40 mg PO HS 08/28/21 [History] Chlorthalidone [Thalitone] 15 mg PO DAILY 08/28/21 [History] Sertraline [Zoloft] 100 mg PO DAILY 08/28/21 [History] amLODIPine [Norvasc] 5 mg PO DAILY 08/28/21 [History] Docusate [Colace] 100 mg PO DAILY #30 capsule 09/02/21 [Rx] traMADol HCl [Ultram] 50 mg PO Q6H PRN #40 tab 09/02/21 [Rx] Follow up Appointment(s)/Referral(s): [facility], [NON-STAFF] - As Needed Dmitry Solorio PAC [PHYSICIAN GAS ENGINEER] - 2 Weeks Patient Instructions/Handouts: Knee Replacement (DC) Activity/Diet/Wound Care/Special Instructions: Discharge instructions: 1. Wound care and infection precautions, keep incision dry and covered while showering, no lotions, creams, moisturizers. No soaking, tubs, pools, hottubs. Do not scrub over the incision. 2. Weight-bear as tolerated with walker / cane until follow-up. 3. Ice and elevate when necessary. Do not exceed 20 minutes per hour with ice pack. 4. Utilize compression sleeve until seen at first follow up appointment. 5. Visiting nursing care. 6. Home physical therapy including home CPM. 7. Pain meds and anticoagulants per prescription. 8. Pain medication has potential to cause constipation. Increase oral fluid and fiber intake. Contact primary care provider if you have not had a bowel movement within 48 hours after discharge 9. No anti-inflammatory medication until discussed at first post operative visit, this including Motrin, Aleve, Mobic, Diclofenac. 10. Follow up in office at 2 weeks postop with Todd Solorio PA-C / Heraclio Wood PA-C 11. Follow up with your primary care doctor 7-10 days after discharge. 12. Contact [facility] with any questions, . Keep silver foam dressing on for 7 days. Silver foam dressing may be removed on 09/08/2021. While silver foam dressing is on, cover with Saran wrap while showering. Once dressing is removed in 7 days, may shower over incision. Do not submerge/soak incision in water/pool/hot tub Medications: tramadol; Colace. Patient to resume aspirin 325 mg daily once home for DVT prophylaxis. Can take [id number] Tylenol between dose of tramadol Discharge Disposition: HOME WITH HOME HEALTH SERVICES
--- NOTE | 2021-09-02 10:22 | P.PN ---
Subjective Progress Note Date: 09/02/21 Principal diagnosis: Right knee osteoarthritis Patient was seen at bedside this morning lying semirecumbent position with Michael bandage present on right lower extremity. Patient says most of the pain he is having is located just above his right knee. He states the pain increases when he gets up with therapy. He says the pain medication does help control pain somewhat. Patient says he did do well physical therapy earlier this morning. He says he was able to walk a bit using walker and walked up-and-down a couple steps. Patient says he does have a walker and cane at home. Patient says he is ready to go home. Patient says he has not had bowel movement yet, however, nader edge says he has been passing gas. Patient says he has been using incentive spirometer. Patient denies chest pain, fever, shortness of breath, nausea, vomiting, change in vision, loss of bowel/bladder control. Objective - Vital Signs Vital signs: Vital Signs Temp 97.5 F L 09/02/21 07:58 Pulse 59 L 09/02/21 07:58 Resp 14 09/02/21 02:00 BP 121/68 09/02/21 07:58 Pulse Ox 95 09/02/21 07:58 FiO2 Intake & Output 09/01/21 09/02/21 09/02/21 18:59 06:59 18:59 Intake Total 1000 400 Output Total 45 Balance 955 400 Weight 110.8 kg Intake: IV 1000 Oral 400 Output: Estimated Blood Loss 45 Other: Voiding Method Toilet Urinal - Exam Right knee: Incision is clean, dry, and intact. The silver foam dressing is in good condition. There is minimal soft tissue swelling and ecchymosis surrounding the medial and lateral aspects of the incision. Calf is soft, no tenderness with palpation. Plantar flexion, dorsiflexion, EHL, FHL are intact. Sensory exam to light touch throughout the extremity is intact, dorsal pedis pulses 2+. - Labs CBC & Chem 7: 09/02/21 04:08 09/01/21 11:33 Labs: Abnormal Lab Results - Last 24 Hours (Table) 09/01/21 09/02/21 Range/Units 11:33 04:08 WBC 10.59 H (4.50-10.00) X 10*3/uL RBC 4.24 L (4.40-5.60) X 10*6/uL Hgb 12.5 L (13.0-17.0) g/dL Hct 37.5 L (39.6-50.0) % Neutrophils # 8.78 H (1.80-7.70) X 10*3/uL Lymphocytes # 0.84 L (0.90-5.00) X 10*3/uL Eosinophils # 0 L (0.04-0.35) X 10*3/uL Potassium 3.3 L (3.5-5.1) mmol/L Assessment and Plan Assessment: 1. Right knee osteoarthritis Postoperative day 1 status post right total knee arthroplasty Plan: 1. Right knee osteoarthritis - right total knee arthroplasty performed yesterday, 09/01/2021. Patient stable at bedside this morning. Patient does have walker at home. Discharge home today with health services. 2. Appreciate medical management 3. Pain management - Tylenol with Codeine in hospital. Going home with tramadol. To take Tylenol between doses tramadol once home if needed 4. DVT prophylaxis - Lovenox in hospital. Patient has aspirin at home. Patient is take aspirin 325 mg daily once home for DVT prophylaxis 5. GI prophylaxis - senna. Going home with Colace 6. PT/OT - weightbearing as tolerated with walker 7. Encourage incentive spirometer use 8. Discharge planning - discharge home with health services today, 09/02/2021. Time with Patient: Less than 30
[2021-09-02] MEDS: Acetaminophen-Codeine 300-30mg TAB PO PRN (12:15)
[2021-09-02 15:23] VITALS: BP 144/64; PULSE 60; TEMP 98.4
[2021-09-02] MEDS ORDERED: ATORVASTATIN 40 MG TAB PO SCH (21:00)
== END 2021-09-02 16:10 | disposition home health service (06) ==
LOC: OR 10:42 → 4SSUR 17:00 → OR 09-02 07:26
PROVIDERS: ADMIT Orthopaedic Surgery; ATTEND Orthopaedic Surgery
DX: M17.11 Unilateral primary osteoarthritis, right knee (principal); E87.6 Hypokalemia; E78.5 Hyperlipidemia, unspecified; I10 Essential (primary) hypertension; Z96.641 Presence of right artificial hip joint; Z98.890 Other specified postprocedural states; Z87.01 Personal history of pneumonia (recurrent); G47.30 Sleep apnea, unspecified; E16.2 Hypoglycemia, unspecified; M48.061 Spinal stenosis, lumbar region without neurogenic claudication; G62.9 Polyneuropathy, unspecified; F32.A Depression, unspecified; Z82.3 Family history of stroke; Z82.49 Family history of ischemic heart disease and other diseases of the circulatory system; Z80.3 Family history of malignant neoplasm of breast; Z79.82 Long term (current) use of aspirin; Z79.899 Other long term (current) drug therapy; Z88.5 Allergy status to narcotic agent; Z88.0 Allergy status to penicillin; Z88.2 Allergy status to sulfonamides
CPT/HCPCS: 97161; 64999; 64448; 76942; 83735; 84132; 85025; 88300; 73560; 27447; G0378; C1776; C1713 ×2; J2250; J1100; J3480; J0690 ×2; J2405; J3010; J1650; J2795 ×2; J2704; J1170 ×2

== ENCOUNTER 2024-05-29 12:27 | Emergency (ER) | payer MEDICARE, OTHER ==
[2024-05-29 13:11] VITALS: TEMP 98
--- NOTE | 2024-05-29 13:14 | ED ---
Chest Pain HPI - General Source: patient, RN notes reviewed Mode of arrival: ambulatory Limitations: no limitations <Hansel Matthew - Last Filed: 05/29/24 13:12> - General Source: patient, RN notes reviewed Mode of arrival: ambulatory Limitations: no limitations <Zion Ayala - Last Filed: 05/29/24 18:42> - General Chief Complaint: Extremity Problem,Nontraumatic Stated Complaint: right shoulder pain Time Seen by Provider: 05/29/24 12:40 - History of Present Illness Initial Comments: Quick note: This is a 74-year-old male with history of hypertension and hyperlipidemia presenting for right scapula pain since waking this morning. Patient endorses some grogginess and pain radiating to his right chest. Denies dyspnea, diaphoresis, AMS, ALOC. Denies personal history of AMI but endorses father having a heart attack at the age of 77. Endorses use of 50 mg ASA this morning. (Hansel Matthew) Patient is a 74-year-old male present to the emergency department with concern for right shoulder region pain. Onset was when he woke this morning. Discomfort is only 1 or 2 at rest however gets up to 6 with movement. Patient denies ever having any chest discomfort despite being asked multiple times. Patient states at 1 point it seemed to start going towards the chest however never actually had chest discomfort. No dyspnea. No weakness. No loss of sensation. (Zion Ayala) - Related Data Home Medications Medication Instructions Recorded Confirmed Losartan Potassium 50 mg PO BID 09/25/14 05/29/24 Sertraline [Zoloft] 100 mg PO DAILY 08/28/21 05/29/24 amLODIPine [Norvasc] 5 mg PO DAILY 08/28/21 05/29/24 Atorvastatin [Lipitor] 20 mg PO HS 05/29/24 05/29/24 Indapamide [Lozol] 2.5 mg PO DAILY 05/29/24 05/29/24 Previous Rx's Medication Instructions Recorded Cyclobenzaprine [Flexeril] 10 mg PO TID PRN #15 tablet 05/29/24 Ibuprofen [Motrin] 600 mg PO Q6HR PRN #20 tab 05/29/24 Allergies Allergy/AdvReac Type Severity Reaction Status Date / Time clindamycin Allergy Rash/Hives Verified 05/29/24 17:26 hydrocodone bitartrate Allergy Rash/Hives Verified 05/29/24 17:26 [From Vicodin] Penicillins Allergy Rash/Hives Verified 05/29/24 17:26 CHILD Sulfa (Sulfonamide Allergy Rash/Hives Verified 05/29/24 17:26 Antibiotics) Review of Systems ROS Other: All systems not noted in ROS Statement are negative. <Margaret Matthewling - Last Filed: 05/29/24 13:12> ROS Other: All systems not noted in ROS Statement are negative. Constitutional: Denies: fever Eyes: Denies: eye pain ENT: Denies: ear pain Respiratory: Denies: cough, dyspnea Cardiovascular: Reports: as per HPI. Denies: chest pain Endocrine: Denies: fatigue Gastrointestinal: Denies: abdominal pain Musculoskeletal: Reports: as per HPI <Zion Ayala - Last Filed: 05/29/24 18:42> ROS Statement: Those systems with pertinent positive or pertinent negative responses have been documented in the HPI. EKG Findings - EKG Results: EKG: interpreted by ERMD, sinus rhythm, normal axis, normal QRS, normal ST/T <Zion Ayala - Last Filed: 05/29/24 18:42> Past Medical History Past Medical History: Hyperlipidemia, Hypertension, Osteoarthritis (OA), Pneumonia, Sleep Apnea/CPAP/BIPAP Additional Past Medical History / Comment(s): HYPOGLYCEMIA,LUMBAR STENOSIS,Neuropathy. History of Any Multi-Drug Resistant Organisms: None Reported Past Surgical History: Orthopedic Surgery Additional Past Surgical History / Comment(s): RIGHT TORN ACL, HYDROCELE REPAIR, TOTAL LEFT HIP, Right TKA (09/01/21) Past Anesthesia/Blood Transfusion Reactions: No Reported Reaction, Motion Sickness Past Psychological History: Depression Smoking Status: Never smoker Past Alcohol Use History: None Reported Past Drug Use History: None Reported - Past Family History Father Family Medical History: CVA/TIA Mother Family Medical History: Cancer, Deep Vein Thrombosis (DVT) Additional Family Medical History / Comment(s): BREAST CANCER <Hansel Matthew - Last Filed: 05/29/24 13:12> General Exam Limitations: no limitations <Hansel Matthew - Last Filed: 05/29/24 13:12> Limitations: no limitations General appearance: alert Head exam: Present: normocephalic Eye exam: Present: normal appearance Neck exam: Present: normal inspection Respiratory exam: Present: normal lung sounds bilaterally. Absent: chest wall tenderness, decreased breath sounds Cardiovascular Exam: Present: regular rate, normal rhythm, normal heart sounds Expanded Peripheral pulses: 2+: Radial (R), Radial (L), Posterior Tibialis (R), Posterior Tibialis (L) GI/Abdominal exam: Present: soft. Absent: tenderness Extremities exam: Present: normal inspection, full ROM. Absent: tenderness Back exam: Present: normal inspection. Absent: tenderness Neurological exam: Present: alert Psychiatric exam: Present: normal affect, normal mood Skin exam: Present: normal color <Zion Ayala - Last Filed: 05/29/24 18:42> - General Exam Comments Initial Comments: Visual Physical Exam Vital signs reviewed General: Well-appearing, nontoxic, no acute distress. Head: Normocephalic, atraumatic Eyes: PERRLA, EOMI ENT: Airway patent Chest: Nonlabored breathing Skin: No visual rash, normal skin tone Neuro: Alert and oriented 3 Musculoskeletal: No gross abnormalities (Hansel Matthew) Course Vital Signs 05/29/24 13:08 Temperature 98 F Pulse Rate 69 Respiratory 17 Rate Blood Pressure 149/70 O2 Sat by Pulse 97 Oximetry Chest Pain MDM <Hansel Matthew - Last Filed: 05/29/24 13:12> <Zion Ayala - Last Filed: 05/29/24 18:42> - MDM I completed the quick note portion of this chart signed JOYA Roche (Hansel Matthew) Was pt. sent in by a medical professional or institution ([employer] [facility], PLANT WORKER, urgent care, hospital, or retirement...) When possible be specific @ -No Did you speak to anyone other than the patient for history (EMS, parent, family, police, friend...)? What history was obtained from this source @ -No Did you review nursing and triage notes (agree or disagree)? Why? @ -I reviewed and agree with nursing and triage notes Were old charts reviewed (outside hosp., previous admission, EMS record, old EKG, old radiological studies, urgent care reports/EKG's, retirement records)? Report findings @ -No old charts were reviewed Differential Diagnosis (chest pain, altered mental status, abdominal pain women, abdominal pain men, vaginal bleeding, weakness, fever, dyspnea, syncope, headache, dizziness, GI bleed, back pain, seizure, CVA, palpatations, mental health, musculoskeletal)? @ -Differential Back Pain: Strain, zoster, cauda equina syndrome, epidural abscess, vertebral osteomyelitis, discitis, fracture, subluxation, disc herniation, DJD, spinal stenosis, dissection, AAA, pancreatitis, peptic ulcer disease, pyelonephritis, kidney stone, this is not meant to be an all-inclusive list. EKG interpreted by me (3pts min.). @ -As above X-rays interpreted by me (1pt min.). @ -Chest x-ray shows no acute process CT interpreted by me (1pt min.). @ -None done U/S interpreted by me (1pt. min.). @ -None done What testing was considered but not performed or refused? (CT, X-rays, U/S, labs)? Why? @ -None What meds were considered but not given or refused? Why? @ -None Did you discuss the management of the patient with other professionals (professionals i.e. , PA, PLANT WORKER, lab, RT, psych nurse, social psychologist, glassware engraver, teacher, veterans service officer, piano case and bench assembler)? Give summary @ -No Was smoking cessation discussed for >3mins.? @ -No Was critical care preformed (if so, how long)? @ -No Were there social determinants of health that impacted care today? How? (Homelessness, low income, unemployed, alcoholism, drug addiction, transportation, low edu. Level, literacy, decrease access to med. care, residential, rehab)? @ -No Was there de-escalation of care discussed even if they declined (Discuss DNR or withdrawal of care, Hospice)? DNR status @ -No What co-morbidities impacted this encounter? (DM, HTN, Smoking, COPD, CAD, Cancer, CVA, ARF, Chemo, Hep., AIDS, mental health diagnosis, sleep apnea, morbid obesity)? @ -None Was patient admitted / discharged? Hospital course, mention meds given and route, prescriptions, significant lab abnormalities, going to OR and other pertinent info. @ -Patient presents with right posterior shoulder discomfort. Symptoms mild at rest and moderate with movement. Evaluation unremarkable. On reevaluation patient does have improvement with Toradol. Patient will be discharged. Patient updated on results and need for follow-up. Undiagnosed new problem with uncertain prognosis? @ -No Drug Therapy requiring intensive monitoring for toxicity (Heparin, Nitro, Insulin, Cardizem)? @ -No Were any procedures done? @ -No Diagnosis/symptom? @ -Right shoulder pain Acute, or Chronic, or Acute on Chronic? @ -Acute Uncomplicated (without systemic symptoms) or Complicated (systemic symptoms)? @ -Default Side effects of treatment? @ -No Exacerbation, Progression, or Severe Exacerbation? @ -No Poses a threat to life or bodily function? How? (Chest pain, USA, SD, pneumonia, PE, COPD, DKA, ARF, appy, cholecystitis, CVA, Diverticulitis, Homicidal, Suicidal, threat to staff... and all critical care pts) @ -No (Zion Ayala) Disposition <Hansel Matthew - Last Filed: 05/29/24 13:12> Is patient prescribed a controlled substance at d/c from ED?: No Time of Disposition: 18:42 <Zion Ayala - Last Filed: 05/29/24 18:42> Clinical Impression: Shoulder pain Disposition: HOME SELF-CARE Condition: Stable Instructions (If sedation given, give patient instructions): Shoulder Pain (ED) Additional Instructions: Prescription sent to pharmacy. Please do follow-up with your primary care physician in the next day or 2 for recheck. Return for increased pain, difficulty breathing, chest pain, weakness, worsening or changing symptoms or any other concerns. Prescriptions: Cyclobenzaprine [Flexeril] 10 mg PO TID PRN #15 tablet PRN Reason: Pain Ibuprofen [Motrin] 600 mg PO Q6HR PRN #20 tab PRN Reason: Pain Referrals: Lorenzo Moseley MD [Primary Care Provider] - 1-2 days
--- NOTE | 2024-05-29 13:32 | XR ---
EXAMINATION TYPE: XR chest 2V DATE OF EXAM: 05/29/2024 1:29 PM COMPARISON: Chest radiographs from 10/27/2016 CLINICAL INDICATION: Male, 74 years old with history of Chest Pain; TECHNIQUE: XR chest 2V Frontal and lateral views of the chest. FINDINGS: Lungs/Pleura: There is flattening of the diaphragm with increased lucency of the lungs. No evidence o f pneumothorax, pleural effusion or focal consolidation. Pulmonary vascularity: Unremarkable. Heart/mediastinum: Cardiomediastinal silhouette is unremarkable. Musculoskeletal: Degenerative changes of the shoulder joints. IMPRESSION: 1. No acute cardiopulmonary disease process. 2. COPD changes. [facility], , 05/29/2024 1:30 PM
[2024-05-29 14:10] LABS: ALT 31 U/L (4-49); AST 31 U/L (17-59); African American GFR (CKD) 72 (>60 ml/min/1.73 sqM); Albumin 4.5 g/dL (3.5-5.0); Alkaline Phosphatase 81 U/L (38-126); Anion Gap 9 mmol/L; Blood Urea Nitrogen 23 mg/dL (9-20); Calcium 9.4 mg/dL (8.4-10.2); Carbon Dioxide 28 mmol/L (22-30); Chloride 102 mmol/L (98-107); Glucose 90 mg/dL (74-99); Magnesium 1.9 mg/dL (1.6-2.3); Non-African American GFR(CKD) 63 (>60 ml/min/1.73 sqM); Potassium 3.7 mmol/L (3.5-5.1); Sodium 139 mmol/L (137-145); Total Bilirubin 0.6 mg/dL (0.2-1.3); Total Protein 6.8 g/dL (6.3-8.2)
[2024-05-29 14:25] LABS: Partial Thromboplastin Time 24.3 sec (22.0-30.0); Prothrombin Time 10.9 sec (10.0-12.5)
[2024-05-29 14:31] LABS: Basophils % (A) 0 %; Eosinophils # (A) 0.2 k/uL (0-0.7); Eosinophils % (A) 1 %; HCT 44.1 % (39.0-53.0); HGB 14.7 gm/dL (13.0-17.5); Lymphocytes # (A) 1.1 k/uL (1.0-4.8); Lymphocytes % (A) 11 %; MCH 29.9 pg (25.0-35.0); MCHC 33.3 g/dL (31.0-37.0); MCV 89.8 fL (80.0-100.0); Mean Platelet Volume 7.7; Monocytes # (A) 0.6 k/uL (0-1.0); Monocytes % (A) 5 %; Neutrophils # (A) 8.1 k/uL (1.3-7.7); Neutrophils % (A) 80 %; Platelet Count 249 k/uL (150-450); RBC 4.91 m/uL (4.30-5.90); RDW 13.5 % (11.5-15.5); WBC 10.1 k/uL (3.8-10.6)
[2024-05-29] MEDS: KETOROLAC 15 MG/ML 1 ML VIAL IVP STA (17:52)
[2024-05-29] MEDS: KETOROLAC 15 MG/ML 1 ML VIAL IM STA (18:49)
[2024-05-29 19:07] VITALS: BP 152/83; PULSE 55; RESP 18
== END 2024-05-29 19:11 | disposition home or self-care (01) ==
LOC: EC 12:27
DX: M25.511 Pain in right shoulder (principal); Z88.0 Allergy status to penicillin; Z88.1 Allergy status to other antibiotic agents; Z88.2 Allergy status to sulfonamides; Z88.5 Allergy status to narcotic agent
CPT/HCPCS: 36415; 93005; 85379; 80053; 83735; 84484; 85025; 85610; 85730; 71046; 99284; 96374; 96372; J1885